=== PATIENT | male | born 1995 | race Caucasian/White ===

== ENCOUNTER → 2019-08-25 08:10 | Outpatient (CLI) | payer SELFPAY ==
--- NOTE | 2019-08-25 08:15 | RAD_ITS ---
Procedure: Dedicated, fluoroscopically guided esophagram. INDICATIONS: Tightness in stomach and throat, nausea, mucous, reflux. TECHNIQUE: The patient easily and readily swallowed effervescent crystals, a barium pill and various density barium contrast. Multiple digital spot images were obtained during the course of the real-time exam. FINDINGS: Esophageal motility appears normal. There is no esophageal stricture, web or diverticulum. There is no intrinsic or extrinsic esophageal mass or mass effect. There is no hiatal hernia. No free reflux was observed during the course of the real-time exam. The barium pill passes easily without obstruction or delay. The esophageal mucosal pattern appears unremarkable. Dedicated, cine evaluation of the pharynx demonstrates symmetric flow of the contrast bolus. No intrinsic or extrinsic mass or mass effect. Unremarkable appearing mucosal pattern. RAD/Esophagus Only IMPRESSION: Unremarkable exam. Electronically Signed: Jeffery Sexton MD at 9:15 EST , Service support ,
== END ==
LOC: RAD 08:13
PROVIDERS: Family Provider Nurse Practitioner Family; PCP Nurse Practitioner Family; Referring Provider Otolaryngology Otolaryngology/Facial Plastic Surgery; Visit Provider Otolaryngology Otolaryngology/Facial Plastic Surgery
DX: K21.9 Gastro-esophageal reflux disease without esophagitis (principal)
CPT/HCPCS: 74220

== ENCOUNTER 2019-09-08 20:07 | Emergency (ER) | payer SELFPAY ==
[2019-09-08 20:09] VITALS: BP 153/98; PULSE 101; RESP 17; TEMP 36.2; O2SAT 97; BMI 29.9
[2019-09-08 22:07] VITALS: RESP 16
--- NOTE | 2019-09-08 22:16 | CT_ITS ---
STUDY: CT BRAIN WITHOUT CONTRAST REASON FOR EXAM: Male, 24 years old. LIGHTHEADED, DIZZINESS X 1 WEEK, [place] WITH NAUSEA RADIATION DOSAGE (If Supplied By Facility): CTDIvol = ( 44.99 ) mGy, DLP = ( 812.98 ) mGycm TECHNIQUE: Transaxial CT imaging of the brain was performed without administration of intravenous contrast material. Individualized dose optimization techniques were used for this CT. COMPARISON: No relevant priors. FINDINGS: Normal soft tissue structures. Normal calvarium. Normal size ventricles and extra-axial spaces for the patient''s age. Normal white matter tracts of the cerebral hemispheres. Normal basal ganglia and thalami. Normal brainstem. Normal cerebellum. There is no intracranial hemorrhage. There are no findings of an acute ischemic infarction. Normal visualized paranasal sinuses. CT/Brain/Head without Contrast IMPRESSION: Normal unenhanced CT scan of the brain. Electronically Signed: Kolton Leroy MD at 23:28 EST , Service support ,
--- NOTE | 2019-09-08 22:26 | ED.DCSUM_ITS ---
History of Present Illness Chief Complaint: Dizziness Informant: Patient Onset: Days Context: Gradual Onset Timing: Continuous Current Severity: Moderate Maximum Severity: Moderate Narrative: The patient presents to the emergency department with headache. He states for the past week, he has had a mild posterior headache. He states is worse when he moves his head. He is also been nauseated and describes lightheadedness. He does not think he has had fever. He has had mild sore throat and ear pain. He denies cough. He denies any vomiting. He is otherwise been in his normal state of health. He denies any history of migraines. He denies any weakness, numbness, or tingling. Prior similar symptoms: No Recent Illness/Hospitalization: No Past Medical History - Allergies and Home Meds Allergies/Adverse Reactions: Allergies No Known Allergies Allergy (Verified 09/08/19 20:07) Primary Care Physician: Kalli Ahn NP-C [Primary Care Provider] - Prior records reviewed: Yes Past Medical History: None Surgical History: no surgical history Smoking Status: Current every day smoker Review of Systems General: Denies: Chills, Fever, Sweats Eyes: Denies: Visual changes - bilaterally, Diplopia ENT: Denies: Rhinorrhea, Sore throat Cardiovascular: Denies: Chest pain, Palpitations Respiratory: Denies: Dyspnea, Cough, Dyspnea on exertion Gastrointestinal: Reports: Nausea. Denies: Abdominal pain, Vomiting, Diarrhea, Melena, Hematochezia Genitourinary: Denies: Dysuria, Hematuria, Frequency Musculoskeletal: Denies: Back pain, Extremity Pain Skin: Denies: Rash, Wounds Neurological: Reports: Headache. Denies: Weakness, Numbness Physical Exam Vital Signs/Narrative: Vital Signs Temp Pulse Resp BP Pulse Ox 09/08/19 22:07 16 09/08/19 20:09 97.2 F L 101 H 17 153/98 H 97 Inital Vital Signs reviewed: Yes General: Well nourished, Well developed, No Acute Distress Head: Normocephalic, Atraumatic Eyes: Perrl, EOMI ENT: Moist mucous membranes, No rhinorrhea Neck: Supple, Nontender Cardiovascular: Regular rate, Regular rhythm, No murmurs Respiratory: No distress, CTA bilaterally, Chest nontender Abdomen: Soft, Nontender, Nondistended, Normal bowel sounds Back: Nontender, Normal Inspection Extremities: Nontender, No edema Skin: Normal color, No rash Neurological: Alert, Oriented x3, Cranial nerves II-XII grossly intact, Normal Strength, Normal Sensation Psychological: Normal affect, Normal Mood Diagnostic/Tx/Re-eval Clinical Impression(s) from Imaging Studies Brain CT 09/08/19 22:16 IMPRESSION: Normal unenhanced CT scan of the brain. Electronically Signed: Kolton Leroy MD at 23:28 EST , Service support , - Medical Decision Making The patient is a meningitic encephalopathic. His neck is supple. He has no lymphadenopathy. His symptoms do seem most consistent with a tension headache. He states he has been under a lot of stress at work. However, given the fact he is not had headache like this I did obtain a noncontrast head CT. This was unremarkable. With fluids, Toradol, and Benadryl, the patient was feeling improved. He continues to have a normal neurologic exam. At this point, I do feel that he safe for outpatient follow-up. He will be given anti- inflammatories and antispasmodics as needed. He will be discharged home. Impression 1. Tension headache ED Disposition - Plan for ED Patient: Instructions: HEADACHE, Tension Prescriptions: cycloBENZAPRine HCl [Flexeril] 10 mg PO TID PRN #20 tab PRN Reason: Muscle Spasm Prescription Printed Naproxen [Naprosyn] 500 mg PO BID PRN #20 tab Prescription Printed Referrals: Kalli Ahn NP-C [Primary Care Provider] -
[2019-09-08] MEDS: 0.9% Normal Saline 1,000 ML 999 ML IV (22:54)
[2019-09-08] MEDS: Ketorolac 30 MG/ML Syringe IV (22:54)
[2019-09-08] MEDS: DiphenhydrAMINE 50 MG/ML Syringe 25 MG IV (22:56)
== END 2019-09-08 23:53 | disposition home or self-care (01) ==
PROVIDERS: Emergency Provider Emergency Medicine; Family Provider Nurse Practitioner Family; PCP Nurse Practitioner Family
DX: G44.209 Tension-type headache, unspecified, not intractable (principal); F17.200 Nicotine dependence, unspecified, uncomplicated
CPT/HCPCS: 70450; 96361; 96374; 96375; 99283; J7030

== ENCOUNTER 2019-09-14 20:13 | Emergency (ER) | payer SELFPAY ==
[2019-09-14 20:14] VITALS: BP 162/96; PULSE 99; RESP 18; TEMP 37; O2SAT 99; BMI 27.1
--- NOTE | 2019-09-14 20:43 | RAD_ITS ---
STUDY: X-RAY CHEST REASON FOR EXAM: Male, 24 years old. C/O ABD PAIN AND NAUSEA. TECHNIQUE: Single frontal view of the chest. COMPARISON: None. FINDINGS: Cardiac silhouette unremarkable. Pulmonary vascularity unremarkable. Aorta unremarkable. No focal airspace opacities. No pleural effusions. Upper abdomen unremarkable. Osseous structures intact. No pneumothorax. RAD/Chest 1 View (Portable) IMPRESSION: No acute cardiopulmonary findings Electronically Signed: Darian Tello, at 22:54 EST Tel , Service support ,
--- NOTE | 2019-09-14 20:43 | EKG12_ITS ---
Test Reason : DYSRHYTHMIA Blood Pressure : / mmHG Vent. Rate : 081 BPM Atrial Rate : 081 BPM P-R Int : 126 ms QRS Dur : 100 ms QT Int : 378 ms P-R-T Axes : 055 067 045 degrees QTc Int : 439 ms Normal sinus rhythm with sinus arrhythmia Normal ECG Confirmed by LULI KEARNS, TEAGAN ([id number]), order editor RY MARSH ([id number]) on 09/16/2019 11:28:56 AM Referred By: ARMANDO Confirmed By:TEAGAN ROCKWELL MD
--- NOTE | 2019-09-14 20:51 | ED.RN ---
NO OLD EKG
[2019-09-14] MEDS: 0.9% Normal Saline 1,000 ML 1000 ML IV (20:53)
[2019-09-14] MEDS: Ondansetron 4 MG/2 ML Vial IV (20:54)
[2019-09-14] MEDS: Mag Hydrox/Al Hydrox/Simeth 30 ML UDC PO (20:54)
[2019-09-14 21:08] LABS: Absolute Lymphocyte Count 1.88 X10^3/uL (0.83-4.51); Absolute Neutrophil Count 4.5 X10^3/uL (2.0-7.7); Basophil# 0.02 X10^3/uL; Basophil% 0.3 % (0-1); Eosinophil# 0.12 X10^3/uL; Eosinophils% 1.7 % (0-5); Hematocrit 46.8 % (40-54); Hemoglobin 15.8 g/dL (13.0-16.5); Lymphocyte # 1.88 X10^3/ul (4.0); Lymphocyte % 26.4 % (19-41); Mean Corp Hgb Conc 33.8 g/dL (32-36); Mean Corpuscular Hgb 29.8 pg (27.0-32.0); Mean Corpuscular Volume 88.1 fL (80-94); Mean Platelet Vol. 9.8 fl (6.2-12.0); Monocyte# 0.59 X10^3/uL; Monocyte% 8.3 % (0-10); NRBC Flagged by Analyzer 0 % (0-5); Platelet Count 221 K/mm3 (150-450); RBC Distribution Width CV 12.8 % (11.6-14.6); RBC Distribution Width SD 41.2 fl (35.1-43.9); Red Blood Count 5.31 M/mm3 (4.6-6.2); White Blood Count 7.1 K/mm3 (4.4-11.0)
[2019-09-14 21:19] LABS: ALB/GLOB Ratio 1.3 RATIO (0.9-2.4); AST(SGOT) 23 U/L (15-37); Alanine Aminotransfer ALT/SGPT 63 U/L (16-61); Albumin, Serum 4.3 g/dL (3.2-5.0); Alkaline Phosphatase 91 U/L (45-117); Anion Gap 5 (5-15); BUN 10 mg/dL (7-18); BUN/Creat Ratio 10.3 RATIO (10-20); Calcium,Total 9.3 mg/dL (8.5-10.1); Chloride 106 mmol/L (98-107); Creatinine, Serum 0.97 mg/dL (0.70-1.30); EST Glomerular Filtration Rate 100 mL/min (>60); Est Glom Filt Rate - Afr Amer 121 mL/min (>60); Estimated Creatinine Clearance 128.89 ml/min; Globulin 3.3 g/dL (2.2-4.2); Glucose 111 mg/dL (74-106); Lipase 91 U/L (73-393); Potassium 3.7 mmol/L (3.5-5.1); Protein, Total 7.6 g/dL (6.4-8.2); Sodium Level 140 mmol/L (136-145)
[2019-09-14 21:36] LABS: Bacteria 0 SEEN /hpf (None Seen); Mucous, Urine 0 SEEN /hpf (<or=2+); Red Blood Cells-Urine 0 SEEN /hpf (0-5); Squamous Epithelial Cells - UA 0 SEEN /hpf (0-5)
[2019-09-14 21:44] LABS: Color, Urine Yellow (Yellow); Glucose, Dipstick Normal (Normal); Ketone-Dipstick Negative (Negative); Leukocyte Esterase-Dipstick 25 /ul (Negative); Nitrite-Dipstick Negative (Negative); Occult Blood-Urine Negative /ul (Negative); Protein-Dipstick Negative (Negative); Urine Bilirubin Dipstick Negative (Negative); Urine Clarity Clear (Clear); Urine Urobilinogen Normal (Normal)
[2019-09-14 21:52] LABS: White Blood Cells 0-5 SEEN /hpf (0-5)
--- NOTE | 2019-09-14 21:57 | ED.DCSUM_ITS ---
- ER Visit Summary Date of Service: 09/14/19 Chief Complaint: Abdominal pain History of Present Illness: The patient is a [address] Ahn. He reports that he has epigastric abdominal pain that began 3 days ago. He states it radiates up into his neck. Is a continuous pain that he describes as burning that waxes and wanes. Is 9 out of 10 at worst and 7-10 currently. Nothing makes this better or worse. He is taking antacids without relief. He is on been on Prilosec for approximately a month. He reports has been nauseated. No vomiting. No diarrhea. Last bowel was today. No amount of medication. He reports he had frequent urination. He denies any dysuria. No penile discharge or testicular pain. Physical Examination: Vitals: Stable. Afebrile. General: Well-nourished and well-developed. Head: Normocephalic atraumatic. Neck: Supple, no lymphadenopathy. No JVD. Nontender. Cardiovascular: Regular rate and rhythm. No murmurs. Respiratory: No respiratory distress. Clear to auscultation bilaterally. Abdominal: Soft, mild epigastric and left upper quadrant tenderness to palpation, nondistended, normal bowel sounds. No guarding, rebound, or peritoneal signs. Back: Nontender. Extremities: Nontender, no edema. Skin: Normal color, no rash. Neurologic: Alert and oriented ?3. Cranial nerves II through XII are intact. Normal strength and sensation. Psych: Normal affect. Test Results: EKG is sinus at [address] changes. Chest x-ray shows no acute disease. CBC is normal. Chem-7 shows a glucose of 111. LFTs show an ALT of 63. Lipase is normal. Urinalysis is negative. Emergency Department Course and Treatment: Patient was treated with Zofran and GI cocktail. He is resting comfortably. Treatment Plan: Patient will have Zantac added to his omeprazole. Instructed to follow-up with his primary care physician in 1 to 2 days if not improving. He was also instructed to follow-up with Dr. Abraham in 3 to 5 days if he is not improving. He is never had endoscopy. Disposition: To home in improved and stable condition. Impression: 1. Abdominal pain, uncertain cause. This note was generated with [facility] software. It may contain incorrect words, spelling, and punctuation that were not noted in review of the chart prior to signing ED Disposition - Plan for ED Patient: Disposition: Home or Assisted Living Instructions: ABDOMINAL PAIN, Unkown Cause, (Male) Prescriptions: Ranitidine [Zantac] 300 mg PO DAILY #30 tab Prescription Printed Referrals: Sergey Abraham MD [STAFF PHYSICIAN] - 3-5 Days if not improving Kalli Ahn NP-C [Primary Care Provider] - 1-2 Days if not improving
[2019-09-14 22:13] VITALS: BP 141/86; PULSE 80; RESP 15; O2SAT 95
[2019-09-14 22:35] VITALS: BP 147/93; PULSE 83; RESP 15; O2SAT 96
== END 2019-09-14 22:44 | disposition home or self-care (01) ==
LOC: ED 20:45
PROVIDERS: Emergency Provider Emergency Medicine; PCP Nurse Practitioner Family
DX: R10.9 Unspecified abdominal pain (principal); R11.0 Nausea; R06.00 Dyspnea, unspecified; R07.9 Chest pain, unspecified; R35.0 Frequency of micturition
CPT/HCPCS: 71045; 80053; 81001; 83690; 85025; 93005; 96361; 96374; 99284; J7030; A4216; J2405

== ENCOUNTER 2019-10-12 12:50 | Emergency (ER) | payer SELFPAY ==
[2019-10-12 12:51] VITALS: BP 161/94; PULSE 88; RESP 16; TEMP 36.9; O2SAT 98; BMI 27.1
[2019-10-12 13:04] VITALS: BP 146/100; PULSE 74; RESP 18; O2SAT 100
--- NOTE | 2019-10-12 13:09 | EKG12_ITS ---
Test Reason : SOB Blood Pressure : / mmHG Vent. Rate : 065 BPM Atrial Rate : 065 BPM P-R Int : 116 ms QRS Dur : 110 ms QT Int : 422 ms P-R-T Axes : 016 055 052 degrees QTc Int : 438 ms Normal sinus rhythm with sinus arrhythmia Normal ECG Confirmed by SAKSHI KEARNS, KRISTEL ([id number]), purchase request editor ABBIE CARRERA ([id number]) on 10/15/2019 8:57:53 AM Referred By: JOSE Confirmed By:KRISTEL CANTOR MD
--- NOTE | 2019-10-12 13:15 | RAD_ITS ---
STUDY: X-RAY CHEST REASON FOR EXAM: Male, 24 years old. Patient states for several days sob, upper abd, lower chest pain on the left side, now pain shooting into neck and jaw. TECHNIQUE: Frontal and lateral views of the chest. COMPARISON: 09/14/2019 FINDINGS: The lungs are clear and expanded. There is no demonstrated pleural abnormality. Normal size heart. Normal mediastinum and nikolay. Normal visualized pulmonary arteries. Normal visualized aortic arch and descending thoracic aorta. Normal visualized thoracic spine. Normal visualized ribs, clavicles, and shoulders. There is no demonstrated abnormality of the visualized soft tissue structures of the upper abdomen. RAD/Chest PA and Lateral IMPRESSION: Normal x-ray examination of the chest. Electronically Signed: Tj Valdez MD at 13:46 EST Tel , Service support ,
--- NOTE | 2019-10-12 13:20 | ED.DCSUM_ITS ---
- ER Visit Summary Date of Service: 10/12/19 Chief Complaint: Shortness of breath History of Present Illness: The patient is a 24 M with shortness of breath for the past 2 days. Today, he started to have some tightness in his chest, neck, and jaw. Nothing seemed to bring this on or make it worse. Nothing seems to make it better. He never had this before. He has a history of acid reflux and anxiety. No history of heart disease, blood clots, aortic disease. No trauma. No fevers, cough, or sputum. Physical Examination: Afebrile and vital signs unremarkable except for blood pressure of 161/94. Patient appears in no acute distress. HEENT exam unremarkable. Neck is nontender with good range of motion. Heart regular. Lungs are diminished in all valle. Abdomen is soft and nontender. Extremities nontender with no edema. Skin appears normal. Pulses strong and equal. Test Results: EKG and chest x-ray are pending. Emergency Department Course and Treatment: Patient presents with shortness of breath and chest tightness. He is a smoker, but otherwise has no past medical history. He is young and otherwise healthy. He is PERC negative and has no other risk factors for ACS or aortic disease. No trauma or infectious symptoms. Chest x-ray was normal. EKG was normal. No sign of ischemia or infarction pattern. Patient was treated with a DuoNeb for diminished lung sounds. He had very mild improvement. No wheezing. Repeat heart rate was 81 and repeat blood pressure was 146/100. I do not believe this is PE, ACS, aortic pathology. X-ray and EKG were reassuring. I suspect this might be related to anxiety. Patient has a history of this. He will take his Atarax as prescribed. Follow-up with his doctor as an outpatient. Return for any new or worsening issues. Treatment Plan: Above Disposition: Discharge Impression: Atypical chest pain This note was generated with [employer] dictation software. It may contain incorrect words, spelling, and punctuation that were not noted in review of the chart prior to signing ED Disposition - Plan for ED Patient: Referrals: Kalli Ahn NP-C [Primary Care Provider] -
[2019-10-12] MEDS: Ipratropium/Albuterol Sulfate 3 ML AMPUL.NEB INHALATION (13:44)
--- NOTE | 2019-10-12 14:00 | ED.DEP ---
ED Disposition - Plan for ED Patient: Instructions: CHEST PAIN, NonCardiac Referrals: Kalli Ahn NP-C [Primary Care Provider] -
[2019-10-12 14:09] VITALS: BP 133/78; PULSE 88; RESP 16; O2SAT 98
[2019-10-12 14:16] VITALS: PULSE 88; RESP 20
== END 2019-10-12 14:09 | disposition home or self-care (01) ==
LOC: ED 13:15
PROVIDERS: Emergency Provider Emergency Medicine; PCP Nurse Practitioner Family
DX: R07.89 Other chest pain (principal); F41.9 Anxiety disorder, unspecified; K21.9 Gastro-esophageal reflux disease without esophagitis; Z79.899 Other long term (current) drug therapy; F17.200 Nicotine dependence, unspecified, uncomplicated
CPT/HCPCS: 71046; 93005; 94640; 99283

== ENCOUNTER 2019-10-27 20:09 | Emergency (ER) | payer SELFPAY ==
[2019-10-27 20:09] VITALS: BP 146/75; PULSE 87; RESP 16; TEMP 36.6; O2SAT 97; BMI 27.1
--- NOTE | 2019-10-27 21:14 | ED.VIS.GEN ---
History of Present Illness Chief Complaint: Other, Pain/Inj Informant: Patient Onset: Days Context: Gradual Onset Timing: Continuous Current Severity: Moderate Maximum Severity: Moderate Narrative: The patient presents to the emergency department with bilateral ear pain and jaw pain. Patient was in his normal state of health. He states he recently finished amoxicillin for strep throat. He states over the past 2 days, he had pain that started in his right ear and is moved to both ears. He states that he is also had pain in his jaw. He denies any fevers. He denies any neck pain. He states it is worse when he eats. He denies any dental pain or trouble swallowing. Prior similar symptoms: No Recent Illness/Hospitalization: No Past Medical History - Allergies and Home Meds Allergies/Adverse Reactions: Allergies No Known Allergies Allergy (Verified 10/27/19 20:11) Primary Care Physician: Kalli Ahn NP-C [Primary Care Provider] - Prior records reviewed: Yes Past Medical History: None Surgical History: no surgical history Smoking Status: Current every day smoker Review of Systems General: Denies: Chills, Fever, Sweats Eyes: Denies: Visual changes - bilaterally, Diplopia ENT: Reports: Bilateral ear pain. Denies: Rhinorrhea, Sore throat Cardiovascular: Denies: Chest pain, Palpitations Respiratory: Denies: Dyspnea, Cough, Dyspnea on exertion Gastrointestinal: Denies: Abdominal pain, Nausea, Vomiting, Diarrhea, Melena, Hematochezia Genitourinary: Denies: Dysuria, Hematuria, Frequency Musculoskeletal: Denies: Back pain, Extremity Pain Skin: Denies: Rash, Wounds Neurological: Denies: Headache, Weakness, Numbness Physical Exam Vital Signs/Narrative: Vital Signs Temp Pulse Resp BP Pulse Ox 10/27/19 20:09 98 F 87 16 146/75 H 97 Inital Vital Signs reviewed: Yes General: Well nourished, Well developed, No Acute Distress Head: Normocephalic, Atraumatic Eyes: Perrl, EOMI ENT: Moist mucous membranes, No rhinorrhea, - - Left TM is mildly bulging but there is no erythema. Right TM is erythematous with bulging and distortion. There is no mastoid tenderness. Neck: Supple, Nontender, No lymphadenopathy Cardiovascular: Regular rate, Regular rhythm, No murmurs Respiratory: No distress, CTA bilaterally, Chest nontender Abdomen: Soft, Nontender, Nondistended, Normal bowel sounds Back: Nontender, Normal Inspection Extremities: Nontender, No edema Skin: Normal color, No rash Neurological: Alert, Oriented x3, Cranial nerves II-XII grossly intact, Normal Strength, Normal Sensation Psychological: Normal affect, Normal Mood Diagnostic/Tx/Re-eval The patient presents with bilateral ear pain and jaw pain. His neck is supple. There is no meningismus. He does have evidence of right otitis. He was recently on amoxicillin for strep throat. He has no trismus or stridor. I am going to start the patient on Omnicef. I will also add an antispasmodic to help with his jaw pain. He is comfortable with this plan of care will be discharged home. Impression 1. Acute right otitis media ED Disposition - Plan for ED Patient: Instructions: OTITIS MEDIA, Abx Tx (Adult) Prescriptions: cycloBENZAPRine HCl [Flexeril] 10 mg PO TID PRN #20 tab PRN Reason: Muscle Spasm Prescription Printed Cefdinir [Omnicef [equiv]] 300 mg PO Q12H #14 cap Prescription Printed Referrals: Kalli Ahn NP-C [Primary Care Provider] -
[2019-10-27] MEDS: Cefdinir 300 MG Capsule PO (21:38)
[2019-10-27] MEDS: cycloBENZAPRine HCl 10 MG Tablet PO (21:38)
[2019-10-27 21:44] VITALS: RESP 18
== END 2019-10-27 21:44 | disposition home or self-care (01) ==
PROVIDERS: Emergency Provider Emergency Medicine; PCP Nurse Practitioner Family
DX: H66.91 Otitis media, unspecified, right ear (principal); F17.200 Nicotine dependence, unspecified, uncomplicated
CPT/HCPCS: 99283; J7030

== ENCOUNTER 2019-12-05 14:29 | Emergency (ER) | payer SELFPAY ==
[2019-12-05 14:30] VITALS: BP 163/125; PULSE 79; RESP 16; TEMP 36.2; O2SAT 99; BMI 27.8
--- NOTE | 2019-12-05 14:58 | EKG12_ITS ---
Test Reason : CHEST PAIN Blood Pressure : / mmHG Vent. Rate : 070 BPM Atrial Rate : 070 BPM P-R Int : 134 ms QRS Dur : 108 ms QT Int : 400 ms P-R-T Axes : 051 061 034 degrees QTc Int : 432 ms Sinus rhythm with marked sinus arrhythmia Otherwise normal ECG Confirmed by LULI KEARNS, TEAGAN ([id number]), associate editor NEVAEH JERRY ([id number]) on 12/08/2019 8:36:25 AM Referred By: BRIANNA Confirmed By:TEAGAN ROCKWELL MD
--- NOTE | 2019-12-05 14:59 | ED.VIS.URI ---
History of Present Illness Chief Complaint: Shortness of Breath Informant: Patient Onset: Weeks - 1 Context: Gradual Onset Timing: Continuous Quality: feels tight, difficult to take a full/deep breath Location: diffuse chest Current Severity: Moderate Maximum Severity: Moderate Worsened by: - - nothing Relieved by: - - nothing Associated Symptoms: Nasal Congestion - w/ mild rhinorrhea, Shortness of Breath, Chest Pain - tightness, Nonproductive cough. Negative for: Headache, Nausea, Vomiting, Diarrhea, Hemoptysis Narrative: Patient has had a cough, chest tightness, shortness of breath without true dyspnea, see above, for the past week. He has a history of anxiety and felt this way before with his anxiety, but states this is been fairly continuous for the past week without any panic attacks, so he thinks that is not the cause of this. He denies having any fevers, states he has been checking his temperature. No leg swelling. No history of DVT or PE, and no family history of venous thrombolic embolism. No recent hospitalizations, surgeries, long travel, and has not traveled out of the area. [facility] No history of asthma. - Past Medical History (1) Anxiety Status: Chronic Past Medical History - Allergies and Home Meds Allergies/Adverse Reactions: Allergies No Known Allergies Allergy (Verified 12/05/19 14:31) Primary Care Physician: Kalli Ahn NP-C [Primary Care Provider] - Surgical History: no surgical history Smoking Status: Current every day smoker Drugs: None Review of Systems General: Denies: Chills, Fever, Sweats Eyes: Denies: Visual changes - bilaterally, Diplopia ENT: Reports: Rhinorrhea. Denies: Bilateral ear pain, Sore throat Cardiovascular: Reports: Chest pain. Denies: Palpitations, Heart racing Respiratory: Reports: Dyspnea - See HPI., Cough. Denies: Sputum, Dyspnea on exertion, Orthopnea Gastrointestinal: Denies: Abdominal pain, Nausea, Vomiting, Diarrhea, Melena, Hematochezia Genitourinary: Denies: Dysuria, Hematuria, Frequency Musculoskeletal: Denies: Back pain, Swelling, Extremity Pain Skin: Denies: Rash, Wounds Neurological: Denies: Headache, Weakness, Numbness Physical Exam Vital Signs/Narrative: Vital Signs Temp Pulse Resp BP Pulse Ox 12/05/19 14:30 97.1 F L 79 16 163/125 H 99 Inital Vital Signs reviewed: Yes General: Well nourished, Well developed Head: Normocephalic, Atraumatic Eyes: Perrl, EOMI Nose: Normal Inspection. Negative for: Purulent Drainage Mouth/Throat: Normal Inspection, No Posterior Erythema Neck: Supple, Nontender Cardiovascular: Regular rate, Regular rhythm, No murmurs. Negative for: Tachycardia Respiratory: No distress, CTA bilaterally, Chest nontender Abdomen: Soft, Nontender, Nondistended, Normal bowel sounds Back: Nontender, Normal Inspection Extremities: Nontender, No edema. Negative for: Calf Tenderness Skin: Normal color, No rash, No Trauma Neurological: Alert, Oriented x3, Cranial nerves II-XII grossly intact, Normal Strength, Normal Sensation, Normal Gait Psychological: Normal affect, Normal Mood Diagnostic/Tx/Re-eval Clinical Impression(s) from Imaging Studies Chest X-Ray 12/05/19 15:07 IMPRESSION: Normal x-ray examination of the chest. Electronically Signed: Richard Delacruz, at 15:30 EDT , Service support , - Rhythm Strip Rhythm Strip: Sinus Rhythm Rate: 70 Ectopy: None - EKG Initial EKG Interpretation: Sinus Rhythm, No Acute Injury Pattern - Normal EKG - Medical Decision Making Patient feels better after a duo nebulizer aerosol. He is able to take a deep breath much easier. Reassured that his x-ray is negative, he does not have fevers and is less likely to have coronavirus, more likely to have a viral bronchitis that could be causing some mild reactive airway. No antibiotics indicated for this, prescribed an albuterol inhaler, and discharged home with appropriate discharge instructions and reasons to return. He is comfortable with that plan. ED Disposition - Plan for ED Patient: Disposition: Home or Assisted Living Diagnosis: Acute viral bronchitis Instructions: ED Upper Resp Infec No Abx Tx Prescriptions: Albuterol Inhaler [Ventolin Hfa] 1 - 2 puff INHALATION Q4H PRN PRN #1 inhaler PRN Reason: Wheezing Prescription Printed Referrals: Kalli Ahn, ALYSA-C [Primary Care Provider] - As Needed
[2019-12-05 15:06] VITALS: BP 146/98; PULSE 59; RESP 18; O2SAT 98
[2019-12-05] MEDS: Ipratropium/Albuterol Sulfate 3 ML AMPUL.NEB INHALATION (15:06)
[2019-12-05 15:07] VITALS: PULSE 62; RESP 14
--- NOTE | 2019-12-05 15:07 | RAD_ITS ---
STUDY: X-RAY CHEST REASON FOR EXAM: Male, 24 years old. SOB; CHEST TIGHTNESS, DRY COUGH X 1 WEEK TECHNIQUE: Single AP portable view of the chest. COMPARISON: Comparison is made with prior examination dated October 12, 2019. FINDINGS: EKG electrodes are seen. The lungs are clear and expanded. There is no demonstrated pleural abnormality. Normal size heart. Normal mediastinum and nikolay. Normal visualized pulmonary arteries. Normal visualized aortic arch and descending thoracic aorta. Normal visualized thoracic spine. Normal visualized ribs, clavicles, and shoulders. There is no demonstrated abnormality of the visualized soft tissue structures of the upper abdomen. RAD/Chest 1 View (Portable) IMPRESSION: Normal x-ray examination of the chest. Electronically Signed: Richard Delacruz, at 15:30 EDT , Service support ,
[2019-12-05 15:18] VITALS: O2SAT 98
[2019-12-05 16:16] VITALS: BP 134/79; PULSE 84; RESP 16; O2SAT 99
== END 2019-12-05 16:17 | disposition home or self-care (01) ==
PROVIDERS: Emergency Provider Emergency Medicine; PCP Nurse Practitioner Family
DX: J20.8 Acute bronchitis due to other specified organisms (principal); F41.9 Anxiety disorder, unspecified; F17.200 Nicotine dependence, unspecified, uncomplicated
CPT/HCPCS: 71045; 93005; 94640; 99282

== ENCOUNTER 2020-02-21 13:01 | Emergency (ER) | payer SELFPAY ==
[2020-02-21 13:02] VITALS: BP 149/106; PULSE 111; RESP 17; TEMP 37.1; O2SAT 97; BMI 31.4
[2020-02-21 13:04] VITALS: BP 149/106; PULSE 111; RESP 17; TEMP 37.1; O2SAT 97
--- NOTE | 2020-02-21 13:20 | RAD_ITS ---
STUDY: X-RAY CHEST REASON FOR EXAM: Male, 25 years old. FEVER, ACHES, COUGH TECHNIQUE: Frontal view of the chest COMPARISON: December 05, 2019 FINDINGS: There is ill-defined right lower lobe and perihilar opacity. There is no pneumothorax, pulmonary edema, pleural effusions or cardiomegaly. Osseous structures are intact. RAD/Chest 1 View (Portable) IMPRESSION: Questionable right lower lung opacity, early pneumonia versus artifact. Recommend short-term confirmatory imaging. Electronically Signed: Michel Marsh, at 14:39 EDT Tel , Service support ,
--- NOTE | 2020-02-21 13:21 | ED.VIS.GEN ---
History of Present Illness Chief Complaint: Cough Detail of Chief Complaint: weak all over Informant: Patient Onset: Days - 3- Context: Gradual Onset Timing: Continuous Quality: malaised/weak Location: all over Current Severity: Severe Maximum Severity: Severe Worsened by: nothing Relieved by: nothing Associated Symptoms: clearing throat a lot/feels congested. not coughing or sob. LUQ pain.chills Narrative: Patient states for the last 3 or 4 weeks he has had diarrhea that initially started watery now just loose, maybe 3 or 4 bouts per day, only 1 so far today and he presents around midday. He had a COVID test that was negative couple weeks ago for that, as well as a stool bacterial test that was negative. Etiology of this is unknown. Last 3 days he is really felt poorly. Weak all over, malaise, chills, sweats although when he takes his temperature during that it is afebrile, feels like he just needs to stay in bed. Not really coughing, but feels like he is having some lower throat congestion that is making him clear his throat a lot. He states he did have a sore throat but that is gone and better. No earache. He had tympanostomy tubes placed for what sounds like recurrent effusions. He has had no ear drainage recently. Denies headache or neck stiffness. He does have myalgias but not arthralgias. No rashes. No chest pain but he is having some left upper quadrant abdominal discomfort. No nausea or vomiting. Mild discomfort in his low back nonlateralizing. No urinary symptoms. Is drinking fluids. - Past Medical History (1) Anxiety Status: Chronic Past Medical History - Allergies and Home Meds Allergies/Adverse Reactions: Allergies No Known Allergies Allergy (Verified 02/21/20 13:02) Primary Care Physician: Kalli Ahn NP-C [Primary Care Provider] - Surgical History: no surgical history Smoking Status: Current some day smoker Drugs: None Review of Systems General: Reports: Chills, Malaise, Sweats. Denies: Fever Eyes: Denies: Visual changes - bilaterally, Diplopia ENT: Reports: Sore throat - resolved now. Denies: Bilateral ear pain, Rhinorrhea Cardiovascular: Denies: Chest pain, Palpitations Respiratory: Denies: Dyspnea, Cough, Dyspnea on exertion Gastrointestinal: Reports: Abdominal pain, Diarrhea. Denies: Nausea, Vomiting, Melena, Hematochezia Genitourinary: Denies: Dysuria, Hematuria, Frequency Musculoskeletal: Reports: Myalgias, Back pain, Extremity Pain - myalgias only. Denies: Arthralgias, Neck pain, Swelling Skin: Denies: Rash, Abscess, Wounds Neurological: Denies: Headache, Weakness, Numbness Physical Exam Vital Signs/Narrative: Vital Signs Temp Pulse Resp BP Pulse Ox 02/21/20 13:02 98.7 F 111 H 17 149/106 H 97 Inital Vital Signs reviewed: Yes General: Well nourished, Well developed, No Acute Distress Head: Normocephalic, Atraumatic Eyes: Perrl, EOMI, - - nml conjunctivae ENT: Moist mucous membranes, No rhinorrhea, TM's clear - intact tympanostomy tubes bilat Neck: Supple, Nontender, No lymphadenopathy Cardiovascular: Regular rate, Regular rhythm, No murmurs, Normal S1, Normal S2, Tachycardia - mild Respiratory: No distress, CTA bilaterally, Chest nontender, - - no splinting on deep inspiration Abdomen: Soft, Nondistended, Normal bowel sounds, No masses, Tender - mild LUQ only, which reproduces his pain. Negative for: Guarding, Rebound tenderness, Hepatomegaly, Splenomegaly Back: Nontender, Normal Inspection Extremities: Nontender, No edema. Negative for: Calf Tenderness Skin: Normal color, No rash, No Trauma Neurological: Alert, Oriented x3, Cranial nerves II-XII grossly intact, Normal Strength, Normal Sensation, Normal Gait Psychological: Normal affect, Normal Mood Diagnostic/Tx/Re-eval Impressions Chest X-Ray 02/21/20 13:20 IMPRESSION: Questionable right lower lung opacity, early pneumonia versus artifact. Recommend short-term confirmatory imaging. Electronically Signed: Michel Marsh, at 14:39 EDT Tel , Service support , 02/21/20 13:20 Chest 1 View (Portable) [RAD] Stat Laboratory Results 02/21/20 02/21/20 02/21/20 13:40 13:40 13:40 WBC 8.8 RBC 5.50 Hgb 17.5 H Hct 50.0 MCV 90.9 MCH 31.8 MCHC 35.0 RDW Std Deviation 44.4 H RDW Coeff of Iraida 13.6 Plt Count 207 MPV 9.8 Immature Gran % (Auto) 0.800 Neut % (Auto) 72.4 H Lymph % (Auto) 20.1 [place] % (Auto) 5.4 Eos % (Auto) 1.1 Baso % (Auto) 0.2 Absolute Neuts (auto) 6.4 Absolute Lymphs (auto) 1.77 Nucleated RBC % 0 Sodium 139 Potassium 3.6 Chloride 104 Carbon Dioxide 28.0 Anion Gap 7 BUN 12 Creatinine 0.96 Estim Creat Clear Calc 129.11 Est GFR (MDRD) Af Amer 122 Est GFR (MDRD) Non-Af 101 BUN/Creatinine Ratio 12.4 Glucose 121 H Calcium 9.2 Total Bilirubin 1.20 H AST 28 ALT 89 H Alkaline Phosphatase 94 Total Protein 7.7 Albumin 4.1 Globulin 3.6 Albumin/Globulin Ratio 1.1 Monoscreen Negative - Medical Decision Making Labs are unremarkable, chest x-ray as above shows the possibility of an early infiltrate, the imaging is not impressively different than his old x-ray, but I can see where the radiologist would say this. His mono screen is negative. I sent another COVID test that is pending and will not be run in-house so it will take several days to come back. Discussed that with the patient. He is feeling better after a liter of fluid and dose of Toradol. I will prescribe him a Z-Kyle to cover the possibility of an early pneumonia, and he is advised to follow-up with his doctor. He is comfortable with that plan. Viral etiologies are in the differential as his COVID-19. ED Disposition - Plan for ED Patient: Disposition: Home or Assisted Living Diagnosis: Lower respiratory tract infection Instructions: ED PNEUMONITIS Adult Prescriptions: Azithromycin [Zithromax Z-Kyle] 250 mg PO UD #1 box Transmission Status: Pending to [id number] Referrals: Kalli Ahn NP-C [Primary Care Provider] - 1 Week if not improving
[2020-02-21] MEDS: 0.9% Normal Saline 1,000 ML 999 ML IV (13:44)
[2020-02-21] MEDS: Ketorolac 30 MG/ML Syringe IV (13:45)
[2020-02-21 13:55] LABS: Absolute Lymphocyte Count 1.77 X10^3/uL (0.83-4.51); Absolute Neutrophil Count 6.4 X10^3/uL (2.0-7.7); Basophil# 0.02 X10^3/uL; Basophil% 0.2 % (0-1); Eosinophils% 1.1 % (0-5); Hemoglobin 17.5 g/dL (13.0-16.5); Lymphocyte # 1.77 X10^3/ul (4.0); Lymphocyte % 20.1 % (19-41); Mean Corpuscular Hgb 31.8 pg (27.0-32.0); Mean Corpuscular Volume 90.9 fL (80-94); Mean Platelet Vol. 9.8 fl (6.2-12.0); Monocyte# 0.48 X10^3/uL; Monocyte% 5.4 % (0-10); NRBC Flagged by Analyzer 0 % (0-5); Neutrophil # 6.38 X10^3/uL (2.7-7.7); Neutrophil % 72.4 % (47-70); Platelet Count 207 K/mm3 (150-450); RBC Distribution Width CV 13.6 % (11.6-14.6); RBC Distribution Width SD 44.4 fl (35.1-43.9); White Blood Count 8.8 K/mm3 (4.4-11.0)
[2020-02-21 14:10] LABS: Internal QC Validated? YES +Cl - CLEAR BKGD; Monotest Negative (Negative)
[2020-02-21 14:15] LABS: ALB/GLOB Ratio 1.1 RATIO (0.9-2.4); AST(SGOT) 28 U/L (15-37); Alanine Aminotransfer ALT/SGPT 89 U/L (16-61); Albumin, Serum 4.1 g/dL (3.2-5.0); Alkaline Phosphatase 94 U/L (45-117); Anion Gap 7 (5-15); BUN 12 mg/dL (7-18); BUN/Creat Ratio 12.4 RATIO (10-20); Calcium,Total 9.2 mg/dL (8.5-10.1); Chloride 104 mmol/L (98-107); Creatinine, Serum 0.96 mg/dL (0.70-1.30); EST Glomerular Filtration Rate 101 mL/min (>60); Est Glom Filt Rate - Afr Amer 122 mL/min (>60); Estimated Creatinine Clearance 129.11 ml/min; Globulin 3.6 g/dL (2.2-4.2); Glucose 121 mg/dL (74-106); Potassium 3.6 mmol/L (3.5-5.1); Protein, Total 7.7 g/dL (6.4-8.2); Sodium Level 139 mmol/L (136-145)
[2020-02-21 16:50] VITALS: BP 159/91; PULSE 81; RESP 16; O2SAT 97
== END 2020-02-21 16:51 | disposition home or self-care (01) ==
PROVIDERS: Emergency Provider Emergency Medicine; PCP Nurse Practitioner Family
DX: J22 Unspecified acute lower respiratory infection (principal); R19.7 Diarrhea, unspecified; F41.9 Anxiety disorder, unspecified; Z79.899 Other long term (current) drug therapy; F17.200 Nicotine dependence, unspecified, uncomplicated
CPT/HCPCS: 71045; 80053; 85025; 86308; 87635; 96361; 96374; 99283; G2023; J7040; A4216; U0003

== ENCOUNTER 2020-03-02 00:19 | Emergency (ER) | payer SELFPAY ==
[2020-03-02 00:20] VITALS: BP 155/92; PULSE 100; RESP 16; TEMP 36.9; O2SAT 100; BMI 31.4
--- NOTE | 2020-03-02 00:38 | RAD_ITS ---
STUDY: X-RAY CHEST REASON FOR EXAM: Male, 25 years old. Cough x 2 weeks TECHNIQUE: PA and lateral views of the chest. COMPARISON: February 21, 2020 chest x-ray, September 14, 2019 chest x-ray FINDINGS: The lungs are clear and expanded. There is no demonstrated pleural abnormality. Normal size heart. Normal mediastinum and nikolay. Normal visualized pulmonary arteries. Normal visualized aortic arch and descending thoracic aorta. Normal visualized thoracic spine. Normal visualized ribs, clavicles, and shoulders. There is no demonstrated abnormality of the visualized soft tissue structures of the upper abdomen. RAD/Chest PA and Lateral IMPRESSION: Stable chest, no visualized acute focal infiltrate. Electronically Signed: Renea Heredia MD at 1:19 EDT Tel , Service support ,
--- NOTE | 2020-03-02 00:39 | ED.VIS.GEN ---
History of Present Illness Chief Complaint: Cough Informant: Patient Onset: Weeks Context: Gradual Onset Timing: Waxes and wanes Current Severity: Mild Maximum Severity: Moderate Narrative: Patient presents secondary to cough and shortness of breath. He was seen approximate week ago and diagnosed with possible early right lower lobe infiltrate. He completed a course of Zithromax. He states his chills are significantly improved. His cough is improving. He still feels like he is a lot of chest congestion. Tonight when he tried to go to bed he became very short of breath. He states he developed tingling in both hands and feet. He is not sure if this was because there was something wrong or if it was his anxiety. - Past Medical History (1) Anxiety and depression Status: Chronic (2) GERD (gastroesophageal reflux disease) Status: Chronic Past Medical History - Allergies and Home Meds Allergies/Adverse Reactions: Allergies No Known Allergies Allergy (Verified 02/21/20 13:02) Primary Care Physician: Kalli Ahn NP-C [Primary Care Provider] - Prior records reviewed: Yes Surgical History: no surgical history Smoking Status: Current some day smoker Review of Systems General: Reports: Chills - Improving. Denies: Fever Eyes: Denies: Visual changes - bilaterally ENT: Denies: Bilateral ear pain Cardiovascular: Denies: Chest pain Respiratory: Reports: Dyspnea, Cough. Denies: Sputum Gastrointestinal: Denies: Abdominal pain, Nausea, Vomiting, Diarrhea Genitourinary: Denies: Dysuria Musculoskeletal: Denies: Extremity Pain Skin: Denies: Rash Neurological: Denies: Headache Hematologic: Denies: Easy bruising Allergy: Denies: Uticaria Physical Exam Vital Signs/Narrative: Vital Signs Temp Pulse Resp BP Pulse Ox 03/02/20 00:20 98.4 F 100 16 155/92 H 100 Inital Vital Signs reviewed: Yes General: Well nourished, Well developed Head: Normocephalic ENT: Moist mucous membranes Neck: Supple Cardiovascular: Regular rate, Regular rhythm Respiratory: No distress, CTA bilaterally Abdomen: Soft, Nontender Extremities: Nontender Skin: Normal color Neurological: Alert, Oriented x3 Psychological: Normal affect Diagnostic/Tx/Re-eval Impressions Chest X-Ray 03/02/20 00:38 IMPRESSION: Stable chest, no visualized acute focal infiltrate. Electronically Signed: Renea Heredia MD at 1:19 EDT Tel , Service support , 03/02/20 00:38 Chest PA and Lateral [RAD] Stat - Medical Decision Making Chest x-ray appears to be improved. Patient will be given a dose of Mucinex here and a prescription for the same. He does have Klonopin at home to take for anxiety. He will follow with his primary care physician. ED Disposition - Plan for ED Patient: Disposition: Home or Assisted Living Diagnosis: Cough Instructions: ED URI Viral Prescriptions: Guaifenesin [Mucinex] 1,200 mg PO BID PRN PRN #[id number] PRN Reason: Congestion Transmission Status: Pending to [facility] Referrals: Kalli Ahn NP-C [Primary Care Provider] - 1 Week
[2020-03-02 01:47] VITALS: BP 155/100; PULSE 67; RESP 17; O2SAT 99
[2020-03-02] MEDS: guaiFENesin 1,200 MG Tablet 1200 MG PO (01:47)
== END 2020-03-02 01:49 | disposition home or self-care (01) ==
PROVIDERS: Emergency Provider Emergency Medicine; PCP Nurse Practitioner Family
DX: R05 Cough (principal); F41.9 Anxiety disorder, unspecified; F32.9 Major depressive disorder, single episode, unspecified; K21.9 Gastro-esophageal reflux disease without esophagitis; R06.02 Shortness of breath; R20.2 Paresthesia of skin
CPT/HCPCS: 71046; 99283

== ENCOUNTER 2020-03-09 19:45 | Emergency (ER) | payer SELFPAY ==
[2020-03-09 19:47] VITALS: BP 155/91; PULSE 71; RESP 16; TEMP 36.7; O2SAT 97; BMI 29.8
--- NOTE | 2020-03-09 20:40 | CT_ITS ---
STUDY: CT BRAIN WITHOUT CONTRAST REASON FOR EXAM: Male, 25 years old. PINK EYE IN LT EYE, VISION CHANGES, HEAD/NECK/SPINE PAIN RADIATION DOSAGE (If Supplied By Facility): CTDIvol = ( 44.99 ) mGy, DLP = ( 796.11 ) mGycm TECHNIQUE: Transaxial CT imaging of the brain was performed without administration of intravenous contrast material. Individualized dose optimization techniques were used for this CT. COMPARISON: Head CT 09/08/2019 FINDINGS: There is left periorbital soft tissue edema Normal calvarium. Normal size ventricles and extra-axial spaces for the patient''s age. Normal white matter tracts of the cerebral hemispheres. Normal basal ganglia and thalami. Normal brainstem. Normal cerebellum. There is no intracranial hemorrhage. There are no findings of an acute ischemic infarction. There is stable edema of the turbinates. There is stable deviation the bony nasal septum to the right. CT/Brain/Head without Contrast IMPRESSION: Normal unenhanced CT scan of the brain Left periorbital soft tissue edema. stable edema of the turbinates. There is stable deviation the bony nasal septum to the right. Electronically Signed: Pro Daley, at 21:45 EDT Tel , Service support ,
[2020-03-09] MEDS: 0.9% Normal Saline 1,000 ML 999 ML IV (20:54)
[2020-03-09] MEDS: proCHLORPERazine 10 MG/2 ML Vial IV (20:54)
[2020-03-09] MEDS: DiphenhydrAMINE 50 MG/ML Syringe 25 MG IV (20:54)
[2020-03-09 21:05] LABS: Absolute Lymphocyte Count 1.84 X10^3/uL (0.83-4.51); Absolute Neutrophil Count 5.2 X10^3/uL (2.0-7.7); Basophil# 0.02 X10^3/uL; Basophil% 0.3 % (0-1); Eosinophil# 0.12 X10^3/uL; Eosinophils% 1.5 % (0-5); Hematocrit 43.7 % (40-54); Hemoglobin 15.4 g/dL (13.0-16.5); Lymphocyte # 1.84 X10^3/ul (4.0); Lymphocyte % 23.6 % (19-41); Mean Corp Hgb Conc 35.2 g/dL (32-36); Mean Corpuscular Hgb 31.9 pg (27.0-32.0); Mean Corpuscular Volume 90.5 fL (80-94); Monocyte# 0.61 X10^3/uL; Monocyte% 7.8 % (0-10); NRBC Flagged by Analyzer 0 % (0-5); Neutrophil # 5.19 X10^3/uL (2.7-7.7); Neutrophil % 66.4 % (47-70); Platelet Count 210 K/mm3 (150-450); RBC Distribution Width CV 13.3 % (11.6-14.6); RBC Distribution Width SD 43.8 fl (35.1-43.9); Red Blood Count 4.83 M/mm3 (4.6-6.2); White Blood Count 7.8 K/mm3 (4.4-11.0)
[2020-03-09 21:24] LABS: Erythrocyte Sedimentation Rate < 1 mm/hr (0-15)
[2020-03-09 21:40] LABS: Anion Gap 3 (5-15); BUN 12 mg/dL (7-18); BUN/Creat Ratio 12.1 RATIO (10-20); CRP < 2.90 mg/L (0.0-3.0); Calcium,Total 8.9 mg/dL (8.5-10.1); Chloride 104 mmol/L (98-107); Creatinine, Serum 0.99 mg/dL (0.70-1.30); EST Glomerular Filtration Rate 98 mL/min (>60); Est Glom Filt Rate - Afr Amer 118 mL/min (>60); Glucose 88 mg/dL (74-106); Potassium 3.6 mmol/L (3.5-5.1); Sodium Level 137 mmol/L (136-145)
--- NOTE | 2020-03-09 22:40 | ED.VISSUMM ---
- ER Visit Summary Date of Service: 03/09/20 Chief Complaint: Headache History of Present Illness: The patient is a 25 M who presents with a headache that has been getting worse over the past 5 days. Patient states it is gradually gotten worse. Patient states he was recently started on topical antibiotics for conjunctivitis at an urgent care. Patient states that since that time he has developed a headache. Patient states his headache is generalized. Patient admits to nausea but denies any vomiting. Patient admits to some intermittent tingling. Patient admits to some blurred vision. Patient states the pain radiates down into his neck. Patient denies any fevers or chills. Physical Examination: Vital signs are stable. Patient is afebrile. Patient is in no acute distress. Pupils are equal, round, and reactive to light bilaterally. Extraocular muscles are intact. There is some mild conjunctival injection on the left. Funduscopic examination was benign. Slit-lamp examination does not show any corneal abrasion. There is no cell or flare. Anterior chamber was clear. There are no foreign bodies. Cranial nerves II through XII are intact. Strength is 5/5 bilateral in the upper and lower extremities. There are no sensory deficits. There is no tenderness over the temporal artery. Heart was regular rate and rhythm. Lungs are clear and equal bilaterally. Abdomen is soft and nontender. Test Results: CT scan of the brain was obtained. There is no acute intracranial abnormality. CBC and basic metabolic profile were within normal limits. Sed rate and CRP were normal. Emergency Department Course and Treatment: Patient was given a dose of Compazine and Benadryl. Patient was feeling better. Patient states his headache was improved. Patient was instructed to continue his antibiotic drops as previously prescribed. Patient was instructed to follow-up with his primary care physician in 3 to 5 days. Patient was instructed to return if worse in any way. Patient understood and was agreeable with the plan. All questions were answered. Disposition: Discharge home Impression: 1. Headache This note was generated with [employer]comation software. It may contain incorrect words, spelling, and punctuation that were not noted in review of the chart prior to signing ED Disposition - Plan for ED Patient: Disposition: Home or Assisted Living Diagnosis: Headache Instructions: ED Headache Unspecified Referrals: Kalli Ahn NP-C [Primary Care Provider] - 3-5 Days
[2020-03-09] MEDS: Tetracaine 0.5% Ophthalmic Bottle OPHTHALMIC (22:48)
[2020-03-09] MEDS: Fluorescein 1 MG STRIP 1 STRIP OPHTHALMIC (22:49)
[2020-03-09 22:51] VITALS: BP 148/68; PULSE 72; RESP 16; O2SAT 99
== END 2020-03-09 22:52 | disposition home or self-care (01) ==
PROVIDERS: Emergency Provider Emergency Medicine; PCP Nurse Practitioner Family
DX: R51 Headache (principal); R20.2 Paresthesia of skin; R11.0 Nausea; H53.8 Other visual disturbances; R30.0 Dysuria; M54.2 Cervicalgia; K21.9 Gastro-esophageal reflux disease without esophagitis; F41.9 Anxiety disorder, unspecified; F17.210 Nicotine dependence, cigarettes, uncomplicated
CPT/HCPCS: 70450; 80048; 85025; 85652; 86140; 99284; J7030; A4216

== ENCOUNTER 2020-08-05 16:15 | Emergency (ER) | payer SELFPAY ==
[2020-08-05 16:16] VITALS: BP 138/113; PULSE 108; RESP 18; TEMP 35.6; O2SAT 99; BMI 27.8
[2020-08-05 16:18] VITALS: BP 138/113; PULSE 108; RESP 18; TEMP 35.6; O2SAT 100
--- NOTE | 2020-08-05 16:33 | CT_ITS ---
STUDY: CTA CHEST REASON FOR EXAM: Male, 25 years old. Chest pain, SOB, COVID + RADIATION DOSAGE (If Supplied By Facility): CTDIvol = ( 10.95 ) mGy, DLP = ( 467.40 ) mGycm TECHNIQUE: The examination was performed with the intravenous administration of IV 100mL Isovue-370. Post-processing of the angiographic images was performed, with multiplanar reformation and 3D reconstruction. Individualized dose optimization techniques were used for this CT. COMPARISON: None. FINDINGS: Normal enhancement of the main pulmonary artery and right and left pulmonary arteries. Normal enhancement of the bilateral peripheral pulmonary arteries. There is no demonstrated pulmonary embolism. Normal thoracic aorta and visualized great vessels. There is no demonstrated aortic dissection. Normal heart and pericardium. Normal mediastinum. Normal hilar regions. Normal visualized trachea and bronchi. The lungs are well expanded. Normal pulmonary parenchyma. Normal pleura. Normal chest wall structures. Normal osseous structures. Normal visualized upper abdomen. CT/CTA Chest W/WO Contrast IMPRESSION: Normal CTA chest examination, without a demonstrated pulmonary embolism or arterial dissection. Electronically Signed: Braxton Elliott DO at 18:37 EST Tel [phone], Service support ,
--- NOTE | 2020-08-05 16:33 | EKG12_ITS ---
Test Reason : CP Blood Pressure : / mmHG Vent. Rate : 093 BPM Atrial Rate : 093 BPM P-R Int : 126 ms QRS Dur : 100 ms QT Int : 350 ms P-R-T Axes : 069 073 043 degrees QTc Int : 435 ms Normal sinus rhythm Normal ECG Confirmed by TEAGAN ROCKWELL MD ([id number]), supervising editor news reel ABBIE CARRERA ([id number]) on 08/06/2020 2:18:27 PM Referred By: ABDOULAYE/DIANNE Confirmed By:TEAGAN ROCKWELL MD
--- NOTE | 2020-08-05 16:35 | ED.DCSUM_ITS ---
- ER Visit Summary Date of Service: 08/05/20 Chief Complaint: Chest pain shortness of breath History of Present Illness: The patient is a 25 M no chest pain shortness of breath. Is been ongoing for 2 days. He describes a pressure in the middle part of his chest. It does not radiate. Exertion makes it worse and rest makes it better. He does have a cough and lightheadedness. He was Covid positive this week. He denies having fevers. He just feels weak. He is a smoker. He took his anxiety medications but it did not help his shortness of breath. He has no history of any coronary disease. Physical Examination: Vital signs reviewed. HEENT exam unremarkable. Heart is regular rate and rhythm without murmurs. Lungs are clear to auscultation. Abdomen is soft and nontender. Extremities reveal no edema. Peripheral pulses are equal. Skin exam normal. Neurologic exam normal. Test Results: EKG is sinus rhythm with rate of 93. No ST changes. Labs are unremarkable except for hemoglobin of 18.4. CTA of the chest shows no evidence of PE Emergency Department Course and Treatment: Patient was given Toradol and felt better. I feel that his pain is likely secondary to the coronavirus. Patient will continue NSAIDs at home. He will quarantine at home as well. Treatment Plan: [] Disposition: Discharge Impression: Chest pain, COVID-19 This note was generated with [employer] dictation software. It may contain incorrect words, spelling, and punctuation that were not noted in review of the chart prior to signing ED Disposition - Plan for ED Patient: Disposition: Home or Assisted Living Instructions: ED Chest Pain, Noncardiac Referrals: Kalli Ahn NP, ASSOCIATE PROFESSOR OF SOCIOLOGY-C [Primary Care Provider] -
[2020-08-05] MEDS: Ketorolac 15 MG/ML Vial IV (16:59)
[2020-08-05 17:00] VITALS: BP 148/102; PULSE 90; RESP 18; TEMP 35.6; O2SAT 100
[2020-08-05 17:06] LABS: Absolute Lymphocyte Count 2.39 X10^3/uL (0.83-4.51); Absolute Neutrophil Count 3.8 X10^3/uL (2.0-7.7); Basophil# 0.03 X10^3/uL; Basophil% 0.4 % (0-1); Eosinophil# 0.05 X10^3/uL; Eosinophils% 0.7 % (0-5); Hematocrit 51.3 % (40-54); Lymphocyte # 2.39 X10^3/ul (4.0); Lymphocyte % 35.7 % (19-41); Mean Corp Hgb Conc 35.9 g/dL (32-36); Mean Corpuscular Hgb 31.6 pg (27.0-32.0); Monocyte# 0.38 X10^3/uL; Monocyte% 5.7 % (0-10); NRBC Flagged by Analyzer 0 % (0-5); Neutrophil # 3.83 X10^3/uL (2.7-7.7); Neutrophil % 57.2 % (47-70); Platelet Count 229 K/mm3 (150-450); RBC Distribution Width CV 12.8 % (11.6-14.6); RBC Distribution Width SD 40.8 fl (35.1-43.9); Red Blood Count 5.83 M/mm3 (4.6-6.2); White Blood Count 6.7 K/mm3 (4.4-11.0)
[2020-08-05 17:20] LABS: Differential Indicated SCAN CRITERIA MET; POSITIVE COUNT NO; POSITIVE DIFFERENTIAL NO; POSITIVE MORPHOLOGY NO
[2020-08-05 17:24] VITALS: BP 144/106; PULSE 96; RESP 18; O2SAT 98
[2020-08-05 17:36] LABS: Anion Gap 4 (5-15); BUN 6 mg/dL (7-18); BUN/Creat Ratio 6.8 RATIO (10-20); Chloride 103 mmol/L (98-107); Creatinine, Serum 0.88 mg/dL (0.70-1.30); EST Glomerular Filtration Rate 112 mL/min (>60); Est Glom Filt Rate - Afr Amer 136 mL/min (>60); Estimated Creatinine Clearance 140.85 ml/min; Glucose 98 mg/dL (74-106); Potassium 4.4 mmol/L (3.5-5.1); Sodium Level 138 mmol/L (136-145)
[2020-08-05 17:45] LABS: Hemoglobin 18.4 g/dL (13.0-16.5)
[2020-08-05 17:46] LABS: Anisocytosis RARE; Platelet Estimate ADEQUATE (ADEQ); Red Cell Morphology N CHROM NORMAL (NORM C&C)
[2020-08-06 12:40] LABS: Pathologist Review Reviewed
== END 2020-08-05 19:03 | disposition home or self-care (01) ==
PROVIDERS: Emergency Provider Emergency Medicine; PCP Nurse Practitioner Family
DX: R07.9 Chest pain, unspecified (principal); U07.1 COVID-19
CPT/HCPCS: 71275; 80048; 84484; 85025; 93005; 96374; 99284; Q9967; A4216

== ENCOUNTER → 2020-12-01 14:47 | Outpatient (CLI) | payer SELFPAY ==
[2020-11-19 16:45] VITALS: BMI 27.3
== END ==
LOC: MTDU 14:47
PROVIDERS: PCP Nurse Practitioner Family; Referring Provider Otolaryngology; Visit Provider Otolaryngology
DX: Z11.59 Encounter for screening for other viral diseases (principal)
CPT/HCPCS: 87635; C9803; U0002

== ENCOUNTER → 2020-12-06 16:06 | Outpatient (CLI) | payer SELFPAY ==
[2020-11-19 16:45] VITALS: BMI 27.3
--- NOTE | 2020-12-06 09:03 | TONS_PTH ---
PATIENT: DAISHA BORDEN LOC: [facility] U#:[id number] AGE/SX: 30/M ROOM: RE12/06/[address]: Dr. Kolton Ibarra MD : [id number] BED: DIS: SPEC #: [id number] RECD: 12/06/20 14:51 STATUS: JOE BUFFY #: [id number] SIGRID: 12/06/20 09:[address]: Kolton Ibarra DEPT: SURGICAL PATHOLOGY RECD BY: Marquita Cr ENTERED: 12/07/20 08:06 SP TYPE: TONSILS OTHR DR: Kalli Ahn, [facility] Tissues: Tonsil, NOS Procedures: Surgery Specimen Level III HEADER OPERATION: Tonsillectomy PRE-OP DIAGNOSIS: Chronic tonsillitis TISSUE SUBMITTED: Tonsils, right pinned MICROSCOPIC DIAGNOSIS Bilateral tonsils, tonsillectomy: Reactive lymphoid hyperplasia, consistent with chronic tonsillitis. Focal actinomyces colonization. Focal superficial acute inflammation. SJ:chandana 12/08/2020 MICROSCOPIC DESCRIPTION Slides are reviewed. GROSS DESCRIPTION Received is one container labeled with the patient's name and designated tonsils - pin on right are two tonsils that in aggregate weigh 8.7 gm. The right tonsil has a pin on it and measures 3 x 2 x 0.8 cm. The left tonsil measures 3.5 x 2 x 1 cm. Both tonsils are similar in appearance. The external surfaces are pink-oro, smooth, glistening and somewhat lobulated. Focally they are hemorrhagic, granular and bear cautery artifact. Serial cross sections through the tonsils reveal normal tonsillar architecture. Sections are submitted in two cassettes as follows: 1 - right tonsil, 2 - left tonsil. / AM:chandana 12/07/20 TC:3 CPT: 42262 x2
== END ==
LOC: LABSPEC 16:07
PROVIDERS: PCP Nurse Practitioner Family; Referring Provider Otolaryngology; Visit Provider Otolaryngology
DX: J35.01 Chronic tonsillitis (principal)
CPT/HCPCS: 88304

== ENCOUNTER 2020-12-06 23:06 | Emergency (ER) | payer SELFPAY ==
[2020-11-19 16:45] VITALS: BMI 27.3
[2020-12-06 23:07] VITALS: BP 144/97; PULSE 95; RESP 18; TEMP 36.2; O2SAT 99; BMI 28.3
--- NOTE | 2020-12-07 00:12 | ED.DCSUM_ITS ---
History of Present Illness Chief Complaint: General Illness Informant: Patient Narrative: Patient is a 25-year-old male with history of anxiety presenting with hemoptysis. Patient had tonsillectomy with Dr. Kolton Ibarra this morning. This evening he started coughing up blood. He spoke to the on-call line which instructed him to come to the ER to be evaluated further. Patient states initially he felt like he was bleeding from the left side but then switched to the right side. He is says he is coughed up some slight clots. Some taking Percocet for pain control. He states he is due for a dose right now. He is having normal postoperative pain. He denies any other complaints at this time. Denies any lightheadedness, fatigue or shortness of breath. Past Medical History - Allergies and Home Meds Allergies/Adverse Reactions: Allergies No Known Allergies Allergy (Verified 12/06/20 23:09) Primary Care Physician: Kalli Ahn INSULATION AND FLOORING ASSEMBLER, INSULATION AND FLOORING ASSEMBLER-C [Primary Care Provider] - Past Medical History: - - Anxiety Surgical History: tonsillectomy Lives: With Family Smoking Status: Current every day smoker Review of Systems General: Denies: Chills, Fever, Sweats Eyes: Denies: Visual changes - bilaterally, Diplopia ENT: Reports: Sore throat, - - Bleeding from tonsils. Denies: Rhinorrhea Cardiovascular: Denies: Chest pain, Palpitations Respiratory: Denies: Dyspnea, Cough, Dyspnea on exertion Gastrointestinal: Denies: Abdominal pain, Nausea, Vomiting, Diarrhea, Melena, Hematochezia Genitourinary: Denies: Dysuria, Hematuria, Frequency Musculoskeletal: Denies: Back pain, Extremity Pain Skin: Denies: Rash, Wounds Neurological: Denies: Headache, Weakness, Numbness Physical Exam Vital Signs/Narrative: Vital Signs Temp Pulse Resp BP Pulse Ox 12/06/20 23:07 97.2 F L 95 18 144/97 H 99 Inital Vital Signs reviewed: Yes General: Well nourished, Well developed, No Acute Distress Head: Normocephalic, Atraumatic Eyes: Perrl, EOMI ENT: Moist mucous membranes, No rhinorrhea, TM's clear, - - Postop day 1 from tonsillectomy. Eschar present bilaterally with some scattered small scabs and small pinpoint areas of bright red blood, but no active bleeding. No phonation Neck: Supple, Nontender Cardiovascular: Regular rate, Regular rhythm, No murmurs Respiratory: No distress, CTA bilaterally, Chest nontender Abdomen: Soft, Nontender, Nondistended, Normal bowel sounds Back: Nontender, Normal Inspection Extremities: Nontender, No edema Skin: Normal color, No rash Neurological: Alert, Oriented x3, Cranial nerves II-XII grossly intact, Normal Strength, Normal Sensation Psychological: Normal affect, Normal Mood Diagnostic/Tx/Re-eval - Medical Decision Making Patient evaluated for bleeding status post tonsillectomy. Patient does not have any active bleeding on my exam. His throat exam appears appropriate for his postop status. He is hemodynamically stable. Patient is counseled to gargle with ice water to help with pain and bleeding. He will continue take his Percocet at home. Case is discussed with ENT on-call, Dr. Wu, who is agreeable with this plan. No further advice at this time. Patient given return precautions. Will follow up in the office as scheduled. ED Disposition - Plan for ED Patient: Disposition: Home or Assisted Living Diagnosis: Post-tonsillectomy hemorrhage Instructions: ED Post Op Wound Check, Bleeding Referrals: Kolton Ibarra MD [STAFF PHYSICIAN] - Additional Instructions: All the bleeding appears to have stopped. Gargle with ice water to help with pain and bleeding. Call your ENT and return to the emergency room should you have increased bleeding. Continue to take Percocet for pain.
== END 2020-12-07 00:37 | disposition home or self-care (01) ==
PROVIDERS: Emergency Provider Emergency Medicine; PCP Nurse Practitioner Family
DX: J95.830 Postprocedural hemorrhage of a respiratory system organ or structure following a respiratory system procedure (principal); G89.18 Other acute postprocedural pain; F17.200 Nicotine dependence, unspecified, uncomplicated
CPT/HCPCS: 99282

== ENCOUNTER 2021-07-23 03:25 | Emergency (ER) | payer SELFPAY ==
[2021-07-23 03:25] VITALS: BP 163/103; PULSE 95; RESP 18; TEMP 36.8; O2SAT 100; BMI 29.9
[2021-07-23 03:29] VITALS: BP 157/98; PULSE 98; RESP 18; TEMP 36.8; O2SAT 100
--- NOTE | 2021-07-23 03:35 | EKG12_ITS ---
Test Reason : DYSRHYTHMIA Blood Pressure : / mmHG Vent. Rate : 081 BPM Atrial Rate : 081 BPM P-R Int : 120 ms QRS Dur : 108 ms QT Int : 370 ms P-R-T Axes : 057 072 049 degrees QTc Int : 429 ms Normal sinus rhythm with sinus arrhythmia Normal ECG Confirmed by LULI KEARNS, TEAGAN ([id number]), book or script editor ABBIE CARRERA ([id number]) on 07/26/2021 8:48:04 AM Referred By: ALVARO Confirmed By:TEAGAN ROCKWELL MD
--- NOTE | 2021-07-23 03:36 | EX.ED.DYSGE1 ---
HPI History of Present Illness Chief Complaint: Shortness of Breath Informant: patient Onset/Context/Timing Onset: Weeks (1 week) Context: Gradual Onset Timing: Continuous Current Severity: Moderate Maximum Severity: Moderate Narrative Narrative: Patient present secondary to chest pressure and shortness of breath that has been ongoing for the past week. He had a mild cough and congestion. He has tried Mucinex and Claritin. He tried taking his anxiety medicine thinking it was all related to anxiety with no improvement. He just completed a [employer]-Kyle and states that he felt so bad at work 90 believe early. He denies fever. [facility] Medical History Acute pharyngitis, unspecified Hypertension Nicotine abuse SOB (shortness of breath) Home Medications clonazepam 0.5 mg tablet 0.5 mg PO PRN PRN 11/19/20 [History Last Taken Unknown] lansoprazole 15 mg capsule,delayed release 15 mg PO DAILY 11/19/20 [History Last Taken Unknown] venlafaxine 150 mg capsule,extended release 24 hr 150 mg PO DAILY cap 03/16/21 [History Last Taken Unknown] Allergy/AdvReac Type Severity Reaction Status Date / Time No Known Allergies Allergy Verified 07/23/21 03:25 Social History Smoking Status: Current every day smoker tobacco type: cigarettes ROS ROS ED Constitutional Constitutional ED: Denies chills or fever(s) Eyes Eyes: Denies change in vision ENT ENT ED: Denies sore throat Cardiovascular Cardiovascular: Reports chest pain Respiratory/Chest Respiratory/Chest: Reports cough and dyspnea Gastrointestinal Gastrointestinal: Denies abdominal pain, diarrhea, nausea or vomiting Genitourinary Genitourinary ED: Denies dysuria Musculoskeletal Musculoskeletal: Denies back pain Integumentary Denies rash Neurologic Neurologic: Denies headache(s) or weakness Allergic/Immunologic Allergic/Immunologic ED: Denies urticaria EXAM Physical Exam Const Vital Signs: 07/23/21 03:25 07/23/21 03:29 07/23/21 03:32 Temperature 98.2 F 98.2 F Temperature Source Temporal Temporal Pulse Rate 95 98 Respiratory Rate 18 18 Respiratory Effort Normal Respiratory Pattern Normal Blood Pressure 163/103 H 157/98 H Blood Pressure Mean 123 117 Pulse Ox 100 100 Oxygen Delivery Method Room Air Room Air 07/23/21 05:00 Temperature 98.8 F Temperature Source Temporal Pulse Rate 74 Respiratory Rate 17 Respiratory Effort Respiratory Pattern Blood Pressure 148/86 H Blood Pressure Mean 106 Pulse Ox 98 Oxygen Delivery Method Positive well nourished and well developed General Appearance ED: well developed HEENT Reports normocephalic and head/scalp atraumatic Eyes PERRL and EOMs intact bilaterally Neck supple Chest Wall inspection of chest normal and palpation of chest normal Resp normal respiratory effort and clear to auscultation bilaterally Cardio regular rate and regular rhythm GI normal to inspection, nondistended, normoactive bowel sounds Palpation: soft Extremity normal to inspection Neuro oriented x3 and no sensory deficits noted Sensorium / Orientation: alert Motor Exam: strength 5/5 throughout Psych mental status grossly normal Skin no rashes or lesions noted MDM MDM MDM Narrative Medical decision making narrative: Patient placed on family court justice. EKG, chest x-ray, lab work obtained. Covid swab ordered. Lab Data Labs: Laboratory Results - last 24 hr 07/23/21 07/23/21 07/23/21 03:35 03:35 03:35 WBC 8.1 RBC 5.07 Hgb 16.9 H Hct 45.7 MCV 90.1 MCH 33.3 H MCHC 37.0 H RDW Std Deviation 42.1 RDW Coeff of [place] 12.9 Plt Count 240 MPV 9.6 Immature Gran % (Auto) 0.100 Neut % (Auto) 56.2 Lymph % (Auto) 34.8 [place] % (Auto) 7.6 Eos % (Auto) 1.1 Baso % (Auto) 0.2 Absolute Neuts (auto) 4.6 Absolute Lymphs (auto) 2.82 Nucleated RBC % 0 D-Dimer Quant (PE/DVT) <= 0.27 Sodium 136 Potassium 3.7 Chloride 99 Carbon Dioxide 32.0 Anion Gap 5 BUN 12 Creatinine 0.86 Estim Creat Clear Calc 147.10 Est GFR (MDRD) Af Amer 138 Est GFR (MDRD) Non-Af 114 BUN/Creatinine Ratio 13.9 Glucose 97 Calcium 9.3 Troponin I High Sens 4 Rapid Covid test negative Radiography Chest X-Ray - ED: 1 View, Read by ED Physician, Normal, Heart, Lungs and Mediastinum EKG Initial EKG: Attestation: I personally reviewed and interpreted this EKG as follows: Interpretation: Sinus Rhythm (Sinus 81 with no acute ischemia.) Treatment and Re-Evaluation Comments:: On repeat evaluation patient resting comfortably. Test results discussed with him. Chest x-ray reveals no focal infiltrate per my interpretation. Lab work unremarkable and Covid test negative. I did advise the patient I believe his symptoms are all viral in nature. This will typically take 3 weeks to completely resolve. Supportive care discussed. Discharge Plan Triage Chief Complaint: Shortness of Breath Other Complaint: Chest Pain ED Provider: Ysabel Blunt Dx/Rx/DC Orders Clinical Impression: Viral bronchitis Instructions: ED URI, Viral, No Abx (Adult) Prescriptions: No Action lansoprazole [Prevacid] 15 mg capsule,delayed release(DR/EC) 15 mg PO DAILY RF: 0 clonazepam 0.5 mg tablet 0.5 mg PO PRN PRN (Reason: Anxiety) RF: 0 venlafaxine [Effexor XR] 150 mg capsule,extended release 24hr 150 mg PO DAILY RF: 0 Primary Care Provider: Kalli Ahn NP Referrals: Kalli Ahn NP, [employer] [Primary Care Provider] - 10-14 Days if not better Disposition Disposition: Home, Self Care
[2021-07-23 03:45] LABS: Absolute Lymphocyte Count 2.82 X10^3/uL (0.83-4.51); Absolute Neutrophil Count 4.6 X10^3/uL (2.0-7.7); Basophil# 0.02 X10^3/uL; Basophil% 0.2 % (0-1); Eosinophil# 0.09 X10^3/uL; Eosinophils% 1.1 % (0-5); Hematocrit 45.7 % (40-54); Hemoglobin 16.9 g/dL (13.0-16.5); Lymphocyte # 2.82 X10^3/ul (0.83-4.51); Lymphocyte % 34.8 % (19-41); Mean Corpuscular Hgb 33.3 pg (27.0-32.0); Mean Corpuscular Volume 90.1 fL (80-94); Mean Platelet Vol. 9.6 fl (6.2-12.0); Monocyte# 0.62 X10^3/uL; Monocyte% 7.6 % (0-10); NRBC Flagged by Analyzer 0 % (0-5); Neutrophil # 4.55 X10^3/uL (2.7-7.7); Neutrophil % 56.2 % (47-70); Platelet Count 240 K/mm3 (150-450); RBC Distribution Width CV 12.9 % (11.6-14.6); RBC Distribution Width SD 42.1 fl (35.1-43.9); Red Blood Count 5.07 M/mm3 (4.6-6.2); White Blood Count 8.1 K/mm3 (4.4-11.0)
--- NOTE | 2021-07-23 03:50 | RAD_ITS ---
HISTORY: sob EXAMINATION/TECHNIQUE: XR Chest 1 View: 2 image AP chest COMPARISON: None FINDINGS: LINES/DEVICES: None. LUNGS: No airspace consolidation. Unremarkable interstitium. No effusion. No pneumothorax. MEDIASTINUM: No cardiomegaly. MUSCULOSKELETAL: No acute osseous finding. RAD/Chest 1 View (Portable) IMPRESSION: No evidence of acute cardiopulmonary process. at 0544 Reported and signed by: Mike Burrows MD Electronically Signed: Mike Burrows MD at 5:42 EST Tel , Service support ,
[2021-07-23 04:10] LABS: D-Dimer Quantitative (DVT/PE) <= 0.27 FEU/ug/m (0.27-0.49)
[2021-07-23 04:26] LABS: Anion Gap 5 (5-15); BUN 12 mg/dL (7-18); BUN/Creat Ratio 13.9 RATIO (10-20); Calcium,Total 9.3 mg/dL (8.5-10.1); Chloride 99 mmol/L (98-107); Creatinine, Serum 0.86 mg/dL (0.70-1.30); EST Glomerular Filtration Rate 114 mL/min (>60); Est Glom Filt Rate - Afr Amer 138 mL/min (>60); Glucose 97 mg/dL (74-106); Potassium 3.7 mmol/L (3.5-5.1); Sodium Level 136 mmol/L (136-145); Troponin-I HS 4 pg/mL (3.0-78.0)
[2021-07-23 05:00] VITALS: BP 148/86; PULSE 74; RESP 17; TEMP 37.1; O2SAT 98
[2021-07-23 05:27] VITALS: BP 147/97; PULSE 74; RESP 17; TEMP 37.1; O2SAT 98
== END 2021-07-23 05:28 | disposition home or self-care (01) ==
PROVIDERS: Emergency Provider Emergency Medicine; PCP Nurse Practitioner Family
DX: J20.8 Acute bronchitis due to other specified organisms (principal); I10 Essential (primary) hypertension; F17.210 Nicotine dependence, cigarettes, uncomplicated
CPT/HCPCS: 71045; 80048; 84484; 85025; 85379; 87426; 93005; 99284; A4216

== ENCOUNTER 2022-05-31 20:32 | Emergency (ER) | payer OTHER, SELFPAY ==
[2022-05-31 20:33] VITALS: BP 140/91; PULSE 63; RESP 15; TEMP 36.4; O2SAT 99; BMI 27.7
[2022-05-31] MEDS: Ketorolac 30 MG/ML Syringe IV (21:27)
--- NOTE | 2022-05-31 21:30 | RAD_ITS ---
STUDY: X-RAY CHEST REASON FOR EXAM: Male, 27 years old. chest pain TECHNIQUE: AP portable COMPARISON: 07/23/2021 FINDINGS: The lungs are clear and expanded. There is no demonstrated pleural abnormality. Normal size heart. Normal mediastinum and nikolay. Normal visualized pulmonary arteries. Normal visualized aortic arch and descending thoracic aorta. Normal visualized thoracic spine. Normal visualized ribs, clavicles, and shoulders. There is no demonstrated abnormality of the visualized soft tissue structures of the upper abdomen. RAD/Chest 1 View (Portable) IMPRESSION: Normal x-ray examination of the chest. Electronically Signed: Jovon Restrepo MD at 21:41 EDT ,
[2022-05-31 21:45] LABS: Absolute Lymphocyte Count 2.05 X10^3/uL (0.83-4.51); Absolute Neutrophil Count 5.2 X10^3/uL (2.0-7.7); Basophil# 0.02 X10^3/uL; Basophil% 0.3 % (0-1); Eosinophil# 0.06 X10^3/uL; Eosinophils% 0.8 % (0-5); Hematocrit 43.3 % (40-54); Hemoglobin 15.6 g/dL (13.0-16.5); Lymphocyte # 2.05 X10^3/ul (0.83-4.51); Lymphocyte % 25.7 % (19-41); Mean Corpuscular Hgb 32.1 pg (27.0-32.0); Mean Corpuscular Volume 89.1 fL (80-94); Mean Platelet Vol. 10.2 fl (6.2-12.0); Monocyte# 0.58 X10^3/uL; Monocyte% 7.3 % (0-10); NRBC Flagged by Analyzer 0 % (0-5); Neutrophil # 5.24 X10^3/uL (2.7-7.7); Neutrophil % 65.6 % (47-70); Platelet Count 214 K/mm3 (150-450); RBC Distribution Width CV 12.7 % (11.6-14.6); RBC Distribution Width SD 41.1 fl (35.1-43.9); Red Blood Count 4.86 M/mm3 (4.6-6.2)
--- NOTE | 2022-05-31 21:56 | EDS_ITS ---
HPI History of Present Illness Chief Complaint: Chest Pain Informant: patient Onset/Context/Timing Onset: Days (2) Quality: heavy and tight Location: upper chest Associated Symptoms Associated Symptoms: dyspnea, dry cough, anxiety Narrative Narrative: Patient reports upper chest pain bilaterally for the past 2 days. Nothing seen regularly. It feels heavy and tight. Similar symptoms in the past with anxiety. No history of coronary disease, DVT, PE, aortic disease. No recent illnesses, fevers. No recent trauma. He tried taking his anxiety medicine as well as his reflux medicine but it is not helping. Reports an associated dry cough. Smokes 1/2 pack/day. Occasional alcohol. No drug use. [facility] Medical History Acute pharyngitis, unspecified Hypertension Nicotine abuse SOB (shortness of breath) Home Medications clonazepam 0.5 mg tablet 0.5 mg PO PRN PRN Anxiety 11/19/20 [History Last Taken Unknown] lansoprazole 15 mg capsule,delayed release (Prevacid) 15 mg PO DAILY 11/19/20 [History Last Taken Unknown] venlafaxine 150 mg capsule,extended release 24 hr (Effexor XR) 150 mg PO DAILY 03/16/21 [History Last Taken Unknown] ondansetron HCl 4 mg tablet (Zofran) 4 mg PO Q6H PRN nausea and vomiting #20 tabs 08/22/21 [Rx Last Taken Unknown] hydroxyzine pamoate 25 mg capsule (Vistaril) 25 mg PO TID PRN anxiety #10 caps 05/31/22 [Rx Last Taken Unknown] Allergy/AdvReac Type Severity Reaction Status Date / Time No Known Allergies Allergy Verified 05/31/22 20:36 Social History Smoking Status: Current every day smoker tobacco type: cigarettes ROS ROS ED Constitutional Constitutional ED: Denies chills or fever(s) Eyes Eyes: Denies blurry vision ENT ENT ED: Denies ear pain Cardiovascular Cardiovascular: Reports chest pain; Denies orthopnea, palpitations, paroxysmal nocturnal dyspnea or racing heartbeat Respiratory/Chest Respiratory/Chest: Reports cough and dyspnea; Denies orthopnea, paroxysmal nocturnal dyspnea or sputum Gastrointestinal Gastrointestinal: Denies abdominal pain, nausea or vomiting Genitourinary Genitourinary ED: Denies dysuria Musculoskeletal Musculoskeletal: Denies arthralgias Integumentary Denies abscess Neurologic Neurologic: Denies headache(s) Psychiatric Psychiatric: Reports anxiety; Denies depression, suicidal ideation or suicidal thoughts Endocrine Endocrinology: Denies cold intolerance Allergic/Immunologic Allergic/Immunologic ED: Denies mouth swelling EXAM Physical Exam Const Vital Signs: 05/31/22 20:33 Temperature 97.6 F L Temperature Source Temporal Pulse Rate 63 Respiratory Rate 15 Blood Pressure 140/91 H Blood Pressure Mean 107 Pulse Ox 99 Oxygen Delivery Method Room Air Positive well nourished and well developed General Appearance ED: well developed HEENT Reports moist mucous membranes Eyes PERRL and EOMs intact bilaterally Neck no lymphadenopathy Resp normal respiratory effort and clear to auscultation bilaterally Cardio regular rate and regular rhythm GI normal to inspection, nondistended, normoactive bowel sounds Extremity normal to inspection General Extremety ED: Negative for edema or tenderness General Extremity: Negative for edema Neuro oriented x3 Sensorium / Orientation: alert Psych mental status grossly normal Skin no rashes or lesions noted MDM MDM MDM Narrative Medical decision making narrative: EKG was interpreted by me and showed sinus rhythm at a rate of 68. No sign of acute ischemia or infarction pattern. Chest x-ray was interpreted by the radiologist and myself and showed no acute abnormalities. CBC unremarkable. BMP and troponin normal. Suspect this is anxiety related. Work-up so far has been reassuring. No risk factors. PERC negative. Will add Vistaril and he will follow-up with his PCP for chronic management of his anxiety. Disposition discharge home Impression #1 chest pain Impression #2 history of anxiety Lab Data Attestation: I reviewed the patient's lab results. Labs: Laboratory Results - last 24 hr 05/31/22 05/31/22 21:30 21:30 WBC 8.0 RBC 4.86 Hgb 15.6 Hct 43.3 MCV 89.1 MCH 32.1 H MCHC 36.0 RDW Std Deviation 41.1 RDW Coeff of [place] 12.7 Plt Count 214 MPV 10.2 Immature Gran % (Auto) 0.300 Neut % (Auto) 65.6 Lymph % (Auto) 25.7 [place] % (Auto) 7.3 Eos % (Auto) 0.8 Baso % (Auto) 0.3 Absolute Neuts (auto) 5.2 Absolute Lymphs (auto) 2.05 Nucleated RBC % 0 Sodium 138 Potassium 3.6 Chloride 105 Carbon Dioxide 28.0 Anion Gap 5 BUN 11 Creatinine 0.90 Estim Creat Clear Calc 139.33 Est GFR (MDRD) Af Amer 130 Est GFR (MDRD) Non-Af 107 BUN/Creatinine Ratio 12.2 Glucose 91 Calcium 9.4 Troponin I High Sens 5 Radiography Diagnostic Testing: Clinical Impression(s) from Imaging Studies Chest X-Ray 05/31/22 21:30 IMPRESSION: Normal x-ray examination of the chest. Electronically Signed: Jovon Restrepo MD at 21:41 EDT , Discharge Plan Triage Chief Complaint: Chest Pain ED Provider: Jones Fu Dx/Rx/DC Orders Clinical Impression: Anxiety Prescriptions: New hydroxyzine pamoate [Vistaril] 25 mg capsule 25 mg PO TID PRN (Reason: anxiety) Qty: 10 0RF No Action lansoprazole [Prevacid] 15 mg capsule,delayed release(DR/EC) 15 mg PO DAILY clonazepam 0.5 mg tablet 0.5 mg PO PRN PRN (Reason: Anxiety) venlafaxine [Effexor XR] 150 mg capsule,extended release 24hr 150 mg PO DAILY ondansetron HCl [Zofran] 4 mg tablet 4 mg PO Q6H PRN (Reason: nausea and vomiting) Qty: 20 0RF Primary Care Provider: Lexus Peña Referrals: Lexus Peña MD [Primary Care Provider] - Disposition Disposition: Home, Self Care
[2022-05-31 22:02] LABS: Anion Gap 5 (5-15); BUN 11 mg/dL (7-18); BUN/Creat Ratio 12.2 RATIO (10-20); Calcium,Total 9.4 mg/dL (8.5-10.1); Chloride 105 mmol/L (98-107); EST Glomerular Filtration Rate 107 mL/min (>60); Est Glom Filt Rate - Afr Amer 130 mL/min (>60); Estimated Creatinine Clearance 139.33 ml/min; Glucose 91 mg/dL (74-106); Potassium 3.6 mmol/L (3.5-5.1); Sodium Level 138 mmol/L (136-145); Troponin-I HS (w/2H Reflex) 5 pg/mL (3.0-78.0)
[2022-05-31 22:10] VITALS: BP 153/81; PULSE 79; RESP 18
[2022-05-31 23:39] LABS: Reflex Troponin-HS? (from REC) Y
== END 2022-05-31 22:19 | disposition home or self-care (01) ==
PROVIDERS: Emergency Provider Emergency Medicine; PCP Family Medicine; Visit Provider Emergency Medicine
DX: F41.9 Anxiety disorder, unspecified (principal); R07.9 Chest pain, unspecified; I10 Essential (primary) hypertension; F17.210 Nicotine dependence, cigarettes, uncomplicated
CPT/HCPCS: 71045; 80048; 84484; 85025; 93005; 99283; A4216

== ENCOUNTER 2022-08-19 08:08 | Emergency (ER) | payer SELFPAY ==
[2022-08-19 08:09] VITALS: BP 141/100; PULSE 77; RESP 18; TEMP 36.4; O2SAT 100; BMI 29.6
--- NOTE | 2022-08-19 08:23 | EX.ED.DYSGE1 ---
HPI History of Present Illness Chief Complaint: Anxiety Informant: patient Narrative Narrative: Presented with increasing body aches over 2 days. States having stiffness also. No fevers or headache. He has been dealing with sinus congestion for the past week he saw urgent care 4 days ago started on amoxicillin. In addition states his Paxil was increased to 40 mg 2 days ago from counseling center. He was on 20 mg. He is on it for anxiety. States 1 started a month ago did have achiness for 2 weeks before improving. He had increased anxiety to the symptoms while going to work therefore came here. Denies suicidal homicidal ideations. Prior similar symptoms: Yes [facility] Medical History Abdominal cramping Abdominal pain Acute pharyngitis, unspecified Chest pain, atypical Diarrhea Gallbladder polyp Gilbert disease Hypertension Nicotine abuse Perianal pain Rectal pain SOB (shortness of breath) Home Medications clonazepam 0.5 mg tablet 0.5 mg PO PRN PRN Anxiety 11/19/20 [History Last Taken Unknown] venlafaxine 150 mg capsule,extended release 24 hr (Effexor XR) 150 mg PO DAILY 03/16/21 [History Last Taken Unknown] ondansetron HCl 4 mg tablet (Zofran) 4 mg PO Q6H PRN nausea and vomiting #20 tabs 08/22/21 [Rx Last Taken Unknown] dicyclomine 10 mg capsule 10 mg PO BID 06/07/22 [History Last Taken Unknown] esomeprazole magnesium 40 mg capsule,delayed release 40 mg PO DAILY 06/07/22 [History Last Taken Unknown] famotidine 20 mg tablet 20 mg PO BID 06/07/22 [History Last Taken Unknown] lisinopril 20 mg tablet 20 mg PO DAILY 06/07/22 [History Last Taken Unknown] sucralfate 1 gram tablet 1 g PO QAC 06/07/22 [History Last Taken Unknown] azithromycin 250 mg tablet See Rx Instructions PO .COMPLEX #6 tabs 06/26/22 [Rx Last Taken Unknown] Allergy/AdvReac Type Severity Reaction Status Date / Time No Known Allergies Allergy Verified 08/19/22 08:09 Social History Smoking Status: Current every day smoker tobacco type: cigarettes ROS ROS ED Constitutional Constitutional ED: Denies chills, fever(s) or sweats Eyes Eyes: Denies change in vision ENT ENT ED: Reports rhinorrhea; Denies dysphagia or sore throat Cardiovascular Cardiovascular: Denies chest pain, leg edema, palpitations or racing heartbeat Respiratory/Chest Respiratory/Chest: Denies cough, dyspnea or dyspnea on exertion Gastrointestinal Gastrointestinal: Denies abdominal pain, diarrhea, nausea or vomiting Genitourinary Genitourinary ED: Denies dysuria, hematuria or urinary frequency Musculoskeletal Musculoskeletal: Reports myalgias; Denies back pain, extremity pain or neck pain Integumentary Denies rash or wounds Neurologic Neurologic: Denies headache(s), paresthesias or weakness Psychiatric Psychiatric: Reports anxiety EXAM Physical Exam Const Vital Signs: 08/19/22 08:09 08/19/22 09:23 Temperature 97.6 F L Temperature Source Temporal Pulse Rate 77 62 Respiratory Rate 18 18 Blood Pressure 141/100 H 120/84 H Blood Pressure Mean 113 96 Pulse Ox 100 99 Oxygen Delivery Method Room Air Positive well nourished and well developed General Appearance ED: well developed and NAD HEENT Reports moist mucous membranes normocephalic and atraumatic Eyes PERRL, EOMs intact bilaterally and conjunctivae normal General Eye ED: Yes normal appearance of both eyes Neck no lymphadenopathy and supple General: Negative for tenderness Chest Wall Chest: Negative for tenderness Resp normal respiratory effort and normal air movement Effort and Inspection: symmetric chest movement; Negative for respiratory distress Cardio regular rate, regular rhythm and no murmurs Peripheral Pulses: pulses 2+ throughout GI normal to inspection, nondistended, normoactive bowel sounds and non-tender Palpation: Negative for guarding or rebound tenderness present Back/Spine no CVA tenderness and no thoracic nor lumbar tenderness Extremity normal to inspection General Extremety ED: Negative for edema or tenderness General Extremity: Negative for edema Neuro oriented x3 and no sensory deficits noted Sensorium / Orientation: awake and alert Skin no rashes or lesions noted and no wounds MDM MDM MDM Narrative Medical decision making narrative: Patient presents with myalgias 2 days since increasing his Paxil. Soft compartments. Vital stable. Treated ibuprofen with time of the year influenza obtained returned negative discussed possibly false negative. He states increased chest symptoms he was here EKG sinus rhythm he is more reassured with resolved symptoms. Discussed could be continued viral syndrome he is currently on antibiotics that he will finish. Discussed could be side effect from the medications he has exact same symptoms with start a medicine a month ago lasting 2 weeks. He will discuss this with his counselor. Discharged with outpatient follow-up. All questions were answered. EKG Initial EKG: Attestation: I personally reviewed and interpreted this EKG as follows: Comments: Sinus rate of 68, no ST or T wave changes QTC 408 Discharge Plan Triage Chief Complaint: Anxiety ED Provider: Ferdinand Ward Dx/Rx/DC Orders Clinical Impression: Myalgia, Viral syndrome Instructions: ED Anxiety Reaction, ED Viral Syndrome (Adult) Prescriptions: No Action clonazepam 0.5 mg tablet 0.5 mg PO PRN PRN (Reason: Anxiety) venlafaxine [Effexor XR] 150 mg capsule,extended release 24hr 150 mg PO DAILY ondansetron HCl [Zofran] 4 mg tablet 4 mg PO Q6H PRN (Reason: nausea and vomiting) Qty: 20 0RF sucralfate 1 gram tablet 1 g PO QAC lisinopril 20 mg tablet 20 mg PO DAILY famotidine 20 mg tablet 20 mg PO BID esomeprazole magnesium 40 mg capsule,delayed release(DR/EC) 40 mg PO DAILY dicyclomine 10 mg capsule 10 mg PO BID azithromycin 250 mg tablet See Rx Instructions PO .COMPLEX Qty: 6 0RF Rx Instructions: take 500 mg today (day 1), then 250 mg for 4 days (days 2-5) PO Primary Care Provider: Lexus Peña Referrals: Lexus Peña MD [Primary Care Provider] - Activity Restrictions/Additional Instructions: Influenza negative possibly false negative. Possible side effects from your Paxil with similar reaction when initially started. No anaphylaxis. Discussed with your counselor. Continue Tylenol ibuprofen as needed. Disposition Disposition: Home, Self Care
[2022-08-19] MEDS: Ibuprofen 600 MG Tablet PO (08:26)
[2022-08-19 09:23] VITALS: BP 120/84; PULSE 62; RESP 18; O2SAT 99
[2022-08-19 09:56] VITALS: BP 120/84; PULSE 62; RESP 18
== END 2022-08-19 09:57 | disposition home or self-care (01) ==
PROVIDERS: Emergency Provider Emergency Medicine; PCP Family Medicine; Visit Provider Emergency Medicine
DX: M79.10 Myalgia, unspecified site (principal); B34.9 Viral infection, unspecified; F41.9 Anxiety disorder, unspecified; F17.210 Nicotine dependence, cigarettes, uncomplicated; I10 Essential (primary) hypertension
CPT/HCPCS: 87804; 93005; 99282

== ENCOUNTER 2022-09-10 10:55 | Emergency (ER) | payer SELFPAY ==
[2022-09-10 10:56] VITALS: BP 172/116; PULSE 81; RESP 19; TEMP 36.6; O2SAT 99; BMI 29.6
--- NOTE | 2022-09-10 11:05 | EX.ED.DYSGE1 ---
HPI History of Present Illness Chief Complaint: Allergic Reaction Informant: patient Onset/Context/Timing Onset: Weeks (1) Context: Gradual Onset Timing: Intermittent Quality: Hives Location: Face, neck, chest Worsened by: Nothing Relieved by: Nothing Associated Symptoms Associated Symptoms: Lightheaded, short of breath, anxiety Narrative Narrative: Patient presents with hives that have been intermittent over the last week. Patient states it is mainly over his face, neck, and chest. Patient denies any new exposures such as new foods, fabric softeners, laundry detergents, soaps, shampoos, colognes, or body sprays. Patient states he felt lightheaded with this. Patient states he gets some shortness of breath with this. Patient states he has a history of anxiety and is unsure if the rash is related to that. Patient denies any difficulty swallowing. Patient admits to some shortness of breath with it and some pain in his chest with it. [facility] Medical History Abdominal cramping Abdominal pain Acute pharyngitis, unspecified Chest pain, atypical Diarrhea Gallbladder polyp Gilbert disease Hypertension Nicotine abuse Perianal pain Rectal pain SOB (shortness of breath) Home Medications clonazepam 0.5 mg tablet 0.5 mg PO PRN PRN Anxiety 11/19/20 [History Last Taken Unknown] venlafaxine 150 mg capsule,extended release 24 hr (Effexor XR) 150 mg PO DAILY 03/16/21 [History Last Taken Unknown] esomeprazole magnesium 40 mg capsule,delayed release 40 mg PO DAILY 06/07/22 [History Last Taken Unknown] lisinopril 20 mg tablet 20 mg PO DAILY 06/07/22 [History Last Taken Unknown] prednisone 20 mg tablet 60 mg PO DAILY #15 TABLETS 09/10/22 [Rx Last Taken Unknown] Allergy/AdvReac Type Severity Reaction Status Date / Time No Known Allergies Allergy Verified 09/10/22 10:59 Social History Smoking Status: Current every day smoker tobacco type: cigarettes ROS ROS ED Constitutional Constitutional ED: Denies chills or fever(s) Eyes Eyes: Denies blurry vision or change in vision ENT ENT ED: Denies rhinorrhea or sore throat Cardiovascular Cardiovascular: Reports chest pain; Denies palpitations Respiratory/Chest Respiratory/Chest: Reports dyspnea; Denies cough Gastrointestinal Gastrointestinal: Reports nausea; Denies vomiting Genitourinary Genitourinary ED: Denies dysuria or hematuria Musculoskeletal Musculoskeletal: Reports neck pain; Denies back pain Integumentary Reports rash; Denies abscess Neurologic Neurologic: Denies headache(s) or weakness Allergic/Immunologic Allergic/Immunologic ED: Reports urticaria; Denies mouth swelling EXAM Physical Exam Const Vital Signs: 09/10/22 10:56 Temperature 97.8 F Temperature Source Temporal Pulse Rate 81 Respiratory Rate 19 H Blood Pressure 172/116 H Blood Pressure Mean 134 Pulse Ox 99 Oxygen Delivery Method Room Air Positive well nourished and well developed General Appearance ED: well developed and NAD HEENT Reports moist mucous membranes HEENT Narrative: Oropharynx is clear. Airway is patent. There is no edema of the oropharynx. Neck supple and no JVD Resp normal respiratory effort and clear to auscultation bilaterally Cardio regular rate, regular rhythm and no murmurs GI normal to inspection, nondistended, normoactive bowel sounds and non-tender Palpation: soft Extremity normal to inspection General Extremety ED: Negative for edema or tenderness General Extremity: Negative for edema Neuro oriented x3, CN's II-XII intact bilaterally and no sensory deficits noted Sensorium / Orientation: alert Motor Exam: strength 5/5 throughout Psych mental status grossly normal Skin Skin Narrative: There is a patchy urticarial rash noted over the face, neck, and upper chest. There are no vesicles or pustules. There are no petechia noted. There is no involvement of mucous membranes. MDM MDM MDM Narrative Medical decision making narrative: EKG was obtained. On my interpretation, it showed a sinus bradycardia with a rate of 57. [place] interval, QRS interval, and QTc intervals were all normal. [place] was normal. There are no acute ST or T wave changes. Patient was given Benadryl and prednisone here. Patient was continued to be monitored here in the emergency department. Patient was feeling better on reevaluation. Patient states he was able to get up to go to the bathroom. Patient states he looked at his neck and upper chest in the mirror and noticed his hives were improving. Patient states he feels better on reevaluation. Patient was given a prescription for prednisone. Patient was instructed to drink plenty of fluids. Patient was instructed to follow-up with his primary care physician in 5 to 7 days. Patient understood and was agreeable with the plan. All questions were answered. EKG Initial EKG: Attestation: I personally reviewed and interpreted this EKG as follows: Interpretation: No Acute Injury Pattern and Sinus Bradycardia (57) Prior EKG tracings: available for review Prior: Unchanged (08/19/2022) Discharge Plan Triage Chief Complaint: Allergic Reaction ED Provider: Deuce Chavez Dx/Rx/DC Orders Clinical Impression: Urticaria, Anxiety, Tobacco use Instructions: ED Hives (Adult) Prescriptions: New prednisone 20 mg tablet 60 mg PO DAILY Qty: 15 0RF No Action clonazepam 0.5 mg tablet 0.5 mg PO PRN PRN (Reason: Anxiety) venlafaxine [Effexor XR] 150 mg capsule,extended release 24hr 150 mg PO DAILY lisinopril 20 mg tablet 20 mg PO DAILY esomeprazole magnesium 40 mg capsule,delayed release(DR/EC) 40 mg PO DAILY Primary Care Provider: Lexus Peña Referrals: Lexus Peña MD [Primary Care Provider] - 5-7 Days Disposition Disposition: Home, Self Care
[2022-09-10] MEDS: predniSONE 20 MG Tablet 60 MG PO (11:27)
[2022-09-10] MEDS: DiphenhydrAMINE 50 MG/ML Syringe 25 MG IV (11:27)
--- NOTE | 2022-09-10 11:48 | EKG12_ITS ---
Test Reason : ALLERGIC REACTION Blood Pressure : / mmHG Vent. Rate : 057 BPM Atrial Rate : 057 BPM P-R Int : 130 ms QRS Dur : 106 ms QT Int : 410 ms P-R-T Axes : 040 043 028 degrees QTc Int : 399 ms Sinus bradycardia Otherwise normal ECG Confirmed by LULI KEARNS, TEAGAN ([id number]), production editor ABBIE CARRERA ([id number]) on 09/12/2022 9:28:34 AM Referred By: Confirmed By:TEAGAN ROCKWELL MD
--- NOTE | 2022-09-10 11:56 | EKG12_ITS ---
Test Reason : ALLERGIC REACTION Blood Pressure : / mmHG Vent. Rate : 057 BPM Atrial Rate : 057 BPM P-R Int : 130 ms QRS Dur : 106 ms QT Int : 410 ms P-R-T Axes : 040 043 028 degrees QTc Int : 399 ms Sinus bradycardia Otherwise normal ECG Confirmed by SAKSHI KEARNS, KRISTEL ([id number]), society editor ABBIE CARRERA ([id number]) on 09/14/2022 8:43:30 AM Referred By: Confirmed By:KRISTEL CANTOR MD
[2022-09-10 13:00] VITALS: RESP 18
[2022-09-10 13:31] VITALS: RESP 18
== END 2022-09-10 13:47 | disposition home or self-care (01) ==
PROVIDERS: Emergency Provider Emergency Medicine; PCP Family Medicine; Visit Provider Emergency Medicine
DX: L50.9 Urticaria, unspecified (principal); F41.9 Anxiety disorder, unspecified; I10 Essential (primary) hypertension; R00.1 Bradycardia, unspecified; F17.210 Nicotine dependence, cigarettes, uncomplicated
CPT/HCPCS: 93005; 99283; A4216

== ENCOUNTER 2023-02-11 16:45 | Emergency (ER) | payer SELFPAY ==
[2023-02-11 16:46] VITALS: BP 152/102; PULSE 92; RESP 18; TEMP 35.8; O2SAT 100; BMI 26.9
[2023-02-11 17:48] VITALS: BP 141/84
--- NOTE | 2023-02-11 18:04 | EX.ED.DYSGE1 ---
HPI History of Present Illness Chief Complaint: General Illness Informant: patient Onset/Context/Timing Onset: Yesterday Narrative Narrative: Patient presents with body aches that started yesterday. 2 days ago he got a Kenalog injection which he states he has had before secondary to allergies. Yesterday he had generalized body aches throughout, specifically in his upper back and arms. He tried Tylenol without improvement. He states he was told to avoid ibuprofen because he just got steroids. No fever has been noted. He has chronic abdominal pain and does report having abdominal cramping yesterday as well. No vomiting or diarrhea. [facility] Medical History Abdominal cramping Abdominal pain Acute pharyngitis, unspecified Chest pain, atypical Diarrhea Gallbladder polyp Generalized anxiety disorder with panic attacks Gilbert disease Hypertension Illness anxiety disorder Nicotine abuse Perianal pain Rectal pain SOB (shortness of breath) Home Medications esomeprazole magnesium 40 mg capsule,delayed release 40 mg PO DAILY 06/07/22 [History Last Taken Unknown] cetirizine 10 mg tablet (Zyrtec) 10 mg PO DAILY PRN 01/31/23 [History Last Taken Unknown] clonazepam 0.5 mg tablet 0.5 mg PO PRN PRN Anxiety #30 tabs 01/31/23 [Rx Last Taken Unknown] lisinopril 20 mg tablet 30 mg PO DAILY 01/31/23 [History Last Taken Unknown] venlafaxine 150 mg capsule,extended release 24 hr (Effexor XR) 75 mg PO DAILY 01/31/23 [History Last Taken Unknown] Allergy/AdvReac Type Severity Reaction Status Date / Time No Known Allergies Allergy Verified 02/11/23 16:48 Family History Other Anxiety Hypertension Severe allergy Social History Smoking Status: Current every day smoker tobacco type: cigarettes ROS ROS ED Constitutional Constitutional ED: Denies chills or fever(s) Eyes Eyes: Denies change in vision or discharge from eye(s) ENT ENT ED: Denies discharge from eye(s), rhinorrhea or sore throat Cardiovascular Cardiovascular: Reports chest pain; Denies palpitations Respiratory/Chest Respiratory/Chest: Denies cough or dyspnea Gastrointestinal Gastrointestinal: Reports abdominal pain; Denies diarrhea, nausea or vomiting Genitourinary Genitourinary ED: Denies difficulty urinating or dysuria Musculoskeletal Musculoskeletal: Reports back pain, extremity pain and myalgias Integumentary Denies Abrasions or rash Neurologic Neurologic: Denies headache(s) or weakness Psychiatric Psychiatric: Reports anxiety; Denies depression Allergic/Immunologic Allergic/Immunologic ED: Denies lip swelling or urticaria EXAM Physical Exam Const Vital Signs: 02/11/23 16:46 02/11/23 17:47 02/11/23 17:48 Temperature 96.5 F L Temperature Source Temporal Pulse Rate 92 Respiratory Rate 18 Respiratory Effort Normal Non-Labored Respiratory Pattern Normal Blood Pressure 152/102 H 141/84 H Blood Pressure Mean 118 103 Pulse Ox 100 Oxygen Delivery Method Room Air 02/11/23 19:00 Temperature Temperature Source Pulse Rate 78 Respiratory Rate 16 Respiratory Effort Respiratory Pattern Blood Pressure 135/88 H Blood Pressure Mean 103 Pulse Ox 100 Oxygen Delivery Method Room Air Positive well nourished and well developed General Appearance ED: well developed HEENT Reports normocephalic and head/scalp atraumatic Eyes PERRL and EOMs intact bilaterally Neck supple Chest Wall inspection of chest normal and palpation of chest normal Resp normal respiratory effort and clear to auscultation bilaterally Cardio regular rate and regular rhythm GI normal to inspection, nondistended, normoactive bowel sounds Palpation: soft Back/Spine no CVA tenderness Extremity normal to inspection Neuro oriented x3 and no sensory deficits noted Sensorium / Orientation: alert Motor Exam: strength 5/5 throughout Psych mental status grossly normal Skin no rashes or lesions noted MDM MDM MDM Narrative Medical decision making narrative: Patient given IV fluids and Toradol. Labwork obtained to evaluate for leukocytosis, anemia, and electrolyte derangement. EKG obtained to evaluate for cardiac arrhythmia/ischemia. Chest x-ray obtained to evaluate for acute lung pathology, cardiac size, or mediastinal abnormality. Swab for COVID and influenza obtained. Lab Data Attestation: I reviewed the patient's lab results. Labs: Laboratory Results - last 24 hr 02/11/23 02/11/23 02/11/23 18:25 18:30 18:30 WBC 7.2 RBC 5.25 Hgb 16.5 Hct 46.3 MCV 88.2 MCH 31.4 MCHC 35.6 RDW Std Deviation 41.5 RDW Coeff of [place] 12.8 Plt Count 245 MPV 10.2 Immature Gran % (Auto) 0.300 Neut % (Auto) 60.0 Lymph % (Auto) 29.1 [place] % (Auto) 9.2 Eos % (Auto) 0.8 Baso % (Auto) 0.6 Absolute Neuts (auto) 4.3 Absolute Lymphs (auto) 2.09 Nucleated RBC % 0 Sodium 137 Potassium 4.0 Chloride 102 Carbon Dioxide 31.0 Anion Gap 4 L BUN 9 Creatinine 0.85 Estim Creat Clear Calc 147.53 Est GFR (MDRD) Af Amer 138 Est GFR (MDRD) Non-Af 114 BUN/Creatinine Ratio 10.6 Glucose 84 Calcium 9.4 Total Bilirubin 0.90 Direct Bilirubin 0.26 AST 12 L ALT 40 Alkaline Phosphatase 75 Total Protein 7.5 Albumin 4.4 Globulin 3.1 Urine Color Yellow Urine Clarity Clear Urine pH 8.0 Ur Specific [place] 1.010 Urine Protein Negative Urine Glucose (UA) Normal Urine Ketones Negative Urine Occult Blood Negative Urine Nitrite Negative Urine Bilirubin Negative Urine Urobilinogen Normal Ur Leukocyte Esterase Negative Urine RBC 0 SEEN Urine WBC 0 SEEN Ur Squamous Epith Cells 0 SEEN Urine Bacteria 0 SEEN Urine Mucus 0 SEEN Radiography Chest X-Ray - ED: 1 View, Read by ED Physician, Normal, Heart, Lungs and Mediastinum Diagnostic Testing: Clinical Impression(s) from Imaging Studies Chest X-Ray 02/11/23 18:30 IMPRESSION: Normal x-ray examination of the chest. Electronically Signed: Jp Copeland MD at 18:51 EDT , EKG Initial EKG: Attestation: I personally reviewed and interpreted this EKG as follows: Interpretation: Sinus Rhythm (Sinus 83 with no acute ischemia.) Treatment and Re-Evaluation :: CBC reveals normal white count and differential. Chemistry studies unremarkable. LFTs normal. Urinalysis reveals no evidence of infection. Portable chest x-ray per my interpretation reveals no evidence of infiltrate. Radiology interpretation is reviewed and agrees. Swab for COVID and influenza is negative. Test results discussed with the patient. At this time I see no acute evidence of bacterial infection. He may have a viral syndrome given his body aches. He is reassured with our findings and will follow with his primary care physician. Discharge Plan Triage Chief Complaint: General Illness ED Provider: Ysabel Blunt Dx/Rx/DC Orders Clinical Impression: Myalgia Instructions: ED Myalgias Prescriptions: No Action venlafaxine [Effexor XR] 150 mg capsule,extended release 24hr 75 mg PO DAILY esomeprazole magnesium 40 mg capsule,delayed release(DR/EC) 40 mg PO DAILY lisinopril 20 mg tablet 30 mg PO DAILY cetirizine [Zyrtec] 10 mg tablet 10 mg PO DAILY PRN clonazepam 0.5 mg tablet 0.5 mg PO PRN PRN (Reason: Anxiety) Qty: 30 0RF Rx Instructions: Take 0.5 mg M,W,F,Steen and 0.25 mg T,Th,Sa Stand Alone Forms: ED Work / School Excuse Primary Care Provider: Lexus Peña Referrals: Lexus Peña MD [Primary Care Provider] - 1 Week Disposition Disposition: Home, Self Care
[2023-02-11] MEDS: 0.9% Normal Saline 1,000 ML 1000 ML IV (18:27)
[2023-02-11] MEDS: Ketorolac 30 MG/ML Syringe IV (18:28)
--- NOTE | 2023-02-11 18:30 | RAD_ITS ---
STUDY: X-RAY CHEST REASON FOR EXAM: Male, 27 years old. cough TECHNIQUE: Single AP portable view of the chest. COMPARISON: 05/31/2022 FINDINGS: The lungs are clear and expanded. There is no demonstrated pleural abnormality. Normal size heart. Normal mediastinum and nikolay. Normal visualized pulmonary arteries. Normal visualized aortic arch and descending thoracic aorta. Normal visualized thoracic spine. Normal visualized ribs, clavicles, and shoulders. There is no demonstrated abnormality of the visualized soft tissue structures of the upper abdomen. RAD/Chest 1 View (Portable) IMPRESSION: Normal x-ray examination of the chest. Electronically Signed: Jp Copeland MD at 18:51 EDT ,
[2023-02-11 18:36] LABS: Absolute Lymphocyte Count 2.09 X10^3/uL (0.83-4.51); Absolute Neutrophil Count 4.3 X10^3/uL (2.0-7.7); Basophil# 0.04 X10^3/uL; Basophil% 0.6 % (0-1); Eosinophil# 0.06 X10^3/uL; Eosinophils% 0.8 % (0-5); Hematocrit 46.3 % (40-54); Hemoglobin 16.5 g/dL (13.0-16.5); Lymphocyte # 2.09 X10^3/ul (0.83-4.51); Lymphocyte % 29.1 % (19-41); Mean Corp Hgb Conc 35.6 g/dL (32-36); Mean Corpuscular Hgb 31.4 pg (27.0-32.0); Mean Corpuscular Volume 88.2 fL (80-94); Mean Platelet Vol. 10.2 fl (6.2-12.0); Monocyte# 0.66 X10^3/uL; Monocyte% 9.2 % (0-10); NRBC Flagged by Analyzer 0 % (0-5); Neutrophil # 4.31 X10^3/uL (2.7-7.7); Platelet Count 245 K/mm3 (150-450); RBC Distribution Width CV 12.8 % (11.6-14.6); RBC Distribution Width SD 41.5 fl (35.1-43.9); Red Blood Count 5.25 M/mm3 (4.6-6.2); White Blood Count 7.2 K/mm3 (4.4-11.0)
[2023-02-11 18:36] LABS: Bacteria 0 SEEN /hpf (None Seen); Mucous, Urine 0 SEEN /hpf (<or=2+); Red Blood Cells-Urine 0 SEEN /hpf (0-5); Squamous Epithelial Cells - UA 0 SEEN /hpf (0-5); White Blood Cells 0 SEEN /hpf (0-5)
[2023-02-11 18:43] LABS: Color, Urine Yellow (Yellow); Glucose, Dipstick Normal (Normal); Ketone-Dipstick Negative (Negative); Leukocyte Esterase-Dipstick Negative /ul (Negative); Nitrite-Dipstick Negative (Negative); Occult Blood-Urine Negative /ul (Negative); Protein-Dipstick Negative (Negative); Urine Bilirubin Dipstick Negative (Negative); Urine Clarity Clear (Clear); Urine Urobilinogen Normal (Normal)
[2023-02-11 18:53] LABS: AST(SGOT) 12 U/L (15-37); Alanine Aminotransfer ALT/SGPT 40 U/L (16-61); Albumin, Serum 4.4 g/dL (3.2-5.0); Alkaline Phosphatase 75 U/L (45-117); Anion Gap 4 (5-15); BUN 9 mg/dL (7-18); BUN/Creat Ratio 10.6 RATIO (10-20); Bilirubin, Direct 0.26 mg/dL (0.00-0.30); Calcium,Total 9.4 mg/dL (8.5-10.1); Chloride 102 mmol/L (98-107); Creatinine, Serum 0.85 mg/dL (0.70-1.30); EST Glomerular Filtration Rate 114 mL/min (>60); Est Glom Filt Rate - Afr Amer 138 mL/min (>60); Estimated Creatinine Clearance 147.53 ml/min; Globulin 3.1 g/dL (2.2-4.2); Glucose 84 mg/dL (74-106); Protein, Total 7.5 g/dL (6.4-8.2); Sodium Level 137 mmol/L (136-145)
[2023-02-11 19:00] VITALS: BP 135/88; PULSE 78; RESP 16; O2SAT 100
[2023-02-11 19:18] VITALS: BP 118/67; PULSE 59; RESP 16; O2SAT 98
== END 2023-02-11 19:19 | disposition home or self-care (01) ==
PROVIDERS: Emergency Provider Emergency Medicine; PCP Family Medicine; Visit Provider Emergency Medicine
DX: M79.10 Myalgia, unspecified site (principal); I10 Essential (primary) hypertension; F17.210 Nicotine dependence, cigarettes, uncomplicated; F41.1 Generalized anxiety disorder; Z79.899 Other long term (current) drug therapy
CPT/HCPCS: 36415; 71045; 80048; 80076; 81001; 85025; 87040; 87428; 93005; 96361; 96374; 99284; J7030; A4216

== ENCOUNTER 2023-03-03 04:02 | Emergency (ER) | payer SELFPAY ==
[2023-03-03 04:03] VITALS: BP 167/105; PULSE 100; RESP 24; TEMP 35.8; O2SAT 100; BMI 27.1
--- NOTE | 2023-03-03 04:55 | EDS_ITS ---
HPI History of Present Illness Chief Complaint: Chest Other Informant: patient Narrative Narrative: Progressive epigastric burning up his chest throughout the day while at work. No nausea or vomiting. Nonbloody stools. Sent on off symptoms past 2 weeks saw his PCP placed on Nexium he states also Carafate for the past weeks plus before times a day however he is taking it twice a day. Denies NSAID use. He was referred to [facility] however appointment not for 6 months. Denies history of similar prior to this. History of anxiety. Denies recent travel surgery or immobilizations. No history of PE or DVT. States due to chest burning feels shortness of breath. Denies cough. Prior similar symptoms: Yes PFSH PFSH Medical History Abdominal cramping Abdominal pain Acute pharyngitis, unspecified Chest pain, atypical Diarrhea Gallbladder polyp Generalized anxiety disorder with panic attacks Gilbert disease Hypertension Illness anxiety disorder Nicotine abuse Perianal pain Rectal pain SOB (shortness of breath) Home Medications esomeprazole magnesium 40 mg capsule,delayed release 40 mg PO DAILY 06/07/22 [History Last Taken Unknown] cetirizine 10 mg tablet (Zyrtec) 10 mg PO DAILY PRN allergy symptoms 01/31/23 [History Last Taken Unknown] clonazepam 0.5 mg tablet 0.5 mg PO PRN PRN Anxiety #30 tabs 01/31/23 [Rx Last Taken Unknown] lisinopril 20 mg tablet 30 mg PO DAILY 01/31/23 [History Last Taken Unknown] venlafaxine 150 mg capsule,extended release 24 hr (Effexor XR) 75 mg PO DAILY 01/31/23 [History Last Taken Unknown] MAGIC MOUTH WASH (BMX) 180 mL suspension 5 ml PO Q6H PRN PRN gastric reflux #180 mL 03/03/23 [Rx Last Taken Unknown] Allergy/AdvReac Type Severity Reaction Status Date / Time No Known Allergies Allergy Verified 03/03/23 04:08 Family History Other Anxiety Hypertension Severe allergy Social History Smoking Status: Current every day smoker tobacco type: cigarettes ROS ROS ED Constitutional Constitutional ED: Denies chills, fever(s) or sweats Eyes Eyes: Denies change in vision ENT ENT ED: Denies dysphagia or sore throat Cardiovascular Cardiovascular: Reports chest pain; Denies leg edema, palpitations or racing heartbeat Respiratory/Chest Respiratory/Chest: Denies cough, dyspnea or dyspnea on exertion Gastrointestinal Gastrointestinal: Reports abdominal pain; Denies diarrhea, nausea or vomiting Genitourinary Genitourinary ED: Denies dysuria, hematuria or urinary frequency Musculoskeletal Musculoskeletal: Denies back pain, extremity pain or neck pain Integumentary Denies rash or wounds Neurologic Neurologic: Denies headache(s), paresthesias or weakness EXAM Physical Exam Const Vital Signs: 03/03/23 04:03 03/03/23 04:09 Temperature 96.4 F L Temperature Source Temporal Pulse Rate 100 Respiratory Rate 24 H Respiratory Effort Normal Blood Pressure 167/105 H Blood Pressure Mean 125 Pulse Ox 100 Positive well nourished and well developed Constitutional Narrative: Nontoxic General Appearance ED: well developed HEENT Reports moist mucous membranes normocephalic and atraumatic Eyes PERRL, EOMs intact bilaterally and conjunctivae normal General Eye ED: Yes normal appearance of both eyes Neck no lymphadenopathy and supple General: Negative for tenderness Chest Wall Chest: Negative for tenderness Resp normal respiratory effort and normal air movement Effort and Inspection: symmetric chest movement; Negative for respiratory distress Cardio regular rate, regular rhythm and no murmurs Peripheral Pulses: pulses 2+ throughout GI normal to inspection, nondistended, normoactive bowel sounds and non-tender GI Narrative: Negative Crawley's or McBurney's tenderness. Palpation: Negative for guarding or rebound tenderness present Back/Spine no CVA tenderness and no thoracic nor lumbar tenderness Extremity normal to inspection General Extremety ED: Negative for edema or tenderness General Extremity: Negative for edema Neuro oriented x3 and no sensory deficits noted Sensorium / Orientation: awake and alert Skin no rashes or lesions noted and no wounds MDM MDM MDM Narrative Medical decision making narrative: Interventions / MDM: Differential diagnosis: GERD with esophagitis, atypical chest pain Diagnosis considered but do not suspect: ACS with no ischemic changes on EKG. My EKG interpretation: Sinus rate of 85, no ST changes isolated T wave version leads III. Nonspecific. Imaging independently reviewed and interpreted by myself: N/A External documents reviewed: N/A Test considered but not ordered:N/A ED course: EKG with no ischemic findings history of reflux symptoms no gastric bleed symptoms. He was treated with GI cocktail with improvement in symptoms. Discussed continuing his Nexium he will use his Carafate 4 times a day. Prescription for Magic mouthwash to use as needed. He will monitor for rectal bleeding. He will follow-up with GI. Return precautions. All questions were answered. Re-evaluation: stable Disposition discussed with patient/family/significant other: Patient Case discussed with consulting clinician: N/A This note was generated with [employer] dictation software. It may contain incorrect words, spelling, and punctuation that were not noted in checking the note before signing. Discharge Plan Triage Chief Complaint: Chest Other ED Provider: Ferdinand Ward Dx/Rx/DC Orders Clinical Impression: GERD with esophagitis, Atypical chest pain Instructions: Esophagitis, ED GERD (Adult) Prescriptions: New MAGIC MOUTH WASH (BMX) 180 mL suspension 5 ml PO Q6H PRN PRN (Reason: gastric reflux) Qty: 180 0RF Rx Instructions: diphenhydramine 12.5 mg/5 mL oral liquid 60 mL; aluminum-mag hydroxide- simethicone 400 mg-400 mg-40 mg/5 mL oral susp 60 mL; Lidocaine Viscous 2 % mucosal solution 60 mL; Per 180 mL No Action venlafaxine [Effexor XR] 150 mg capsule,extended release 24hr 75 mg PO DAILY esomeprazole magnesium 40 mg capsule,delayed release(DR/EC) 40 mg PO DAILY lisinopril 20 mg tablet 30 mg PO DAILY cetirizine [Zyrtec] 10 mg tablet 10 mg PO DAILY PRN (Reason: allergy symptoms) clonazepam 0.5 mg tablet 0.5 mg PO PRN PRN (Reason: Anxiety) Qty: 30 0RF Rx Instructions: Take 0.5 mg M,W,F,Steen and 0.25 mg T,Th,Sa Primary Care Provider: Lexus Peña Referrals: Lexus Peña MD [Primary Care Provider] - Demond Amaya DO [Med Staff - Active Staff] - 1-2 Weeks Activity Restrictions/Additional Instructions: Continue your Nexium, Carafate 4 times a day. Use Magic mouthwash as needed for severe symptoms. Follow-up with GI. Monitor for black tarry stools. Return if worsening symptoms. Disposition Disposition: Home, Self Care Discharge Date/Time: 03/03/23 05:57
[2023-03-03] MEDS: Mag Hydrox/Al Hydrox/Simeth 30 ML UDC PO (04:57)
--- NOTE | 2023-03-03 05:16 | EKG12_ITS ---
Test Reason : CP Blood Pressure : / mmHG Vent. Rate : 085 BPM Atrial Rate : 085 BPM P-R Int : 130 ms QRS Dur : 096 ms QT Int : 358 ms P-R-T Axes : 044 057 041 degrees QTc Int : 426 ms Normal sinus rhythm Normal ECG Confirmed by SONIA KEARNS, OVIDIO ([id number]), primer expeditor and drier ABBIE CARRERA ([id number]) on 03/05/2023 1:22:56 PM Referred By: DORIE Confirmed By:RITU SCOTT MD
== END 2023-03-03 05:57 | disposition home or self-care (01) ==
PROVIDERS: Emergency Provider Emergency Medicine; PCP Family Medicine; Visit Provider Emergency Medicine
DX: R07.89 Other chest pain (principal); K21.00 Gastro-esophageal reflux disease with esophagitis, without bleeding; F41.9 Anxiety disorder, unspecified; I10 Essential (primary) hypertension; F17.210 Nicotine dependence, cigarettes, uncomplicated
CPT/HCPCS: 93005; 99283

== ENCOUNTER 2023-05-25 03:31 | Emergency (ER) | payer SELFPAY ==
[2023-05-25 03:34] VITALS: BP 154/105; PULSE 55; RESP 16; TEMP 36.4; O2SAT 100; BMI 28.6
--- NOTE | 2023-05-25 03:44 | CT_ITS ---
INDICATION: headache EXAMINATION: CT BRAIN - CT Head or Brain W/O Contrast Injection TECHNIQUE: Multiple axial images were obtained of the head with sagittal and coronal reconstructed images. Individualized dose optimization techniques were used for this CT. IV contrast dosage and agent: None. COMPARISON: 03/09/2020 CT. FINDINGS: BRAIN PARENCHYMA: No evidence of an acute infarct or intracranial hemorrhage. No evidence of a mass. CSF SPACES: The ventricles, sulci and subarachnoid cisterns are appropriate for age. CALVARIUM, SKULL BASE, PARANASAL SINUSES AND MASTOID AIR CELLS: No fracture. Mastoid air cells are clear. Visualized paranasal sinuses are unremarkable. ORBITS: The globes, extraocular muscles, optic nerves and retrobulbar fat are unremarkable. CT/Brain/Head without Contrast IMPRESSION: Normal noncontrast CT of the head. Electronically Signed: Jovon Corral DO at 4:29 EDT ,
[2023-05-25] MEDS: DiphenhydrAMINE 50 MG/ML Syringe 25 MG IV (03:55)
[2023-05-25] MEDS: dexAMETHasone 20 MG/5 ML Vial IV (03:56)
[2023-05-25] MEDS: Ketorolac 30 MG/ML Syringe IV (03:58)
[2023-05-25] MEDS: Metoclopramide 10 MG/2 ML Vial IV (04:00)
--- NOTE | 2023-05-25 04:06 | EDS_ITS ---
HPI History of Present Illness Chief Complaint: Headache Informant: patient Narrative Narrative: Patient is a 28-year-old male with past medical history of anxiety. He states for the past 2 weeks he has had congestion and sinus pressure. He states he is done nasal sprays and Sudafed and even a round of antibiotics without any symptom improvement. He states it is to the point where he is having difficulty sleeping secondary to the headache from his congestion/sinus pressure. He denies any previous history of headache or trauma prior to headache beginning and he denies any light sensitivity or phonophobia as well. However with the persistent symptoms not improving [id number] medications and even antibiotics he presents for evaluation. [facility] Medical History Abdominal cramping Abdominal pain Acute pharyngitis, unspecified Chest pain, atypical Diarrhea Gallbladder polyp Generalized anxiety disorder with panic attacks Gilbert disease Hypertension Illness anxiety disorder Nicotine abuse Perianal pain Rectal pain SOB (shortness of breath) Home Medications esomeprazole magnesium 40 mg capsule,delayed release 40 mg PO DAILY 06/07/22 [History Last Taken Unknown] cetirizine 10 mg tablet (Zyrtec) 10 mg PO DAILY PRN allergy symptoms 01/31/23 [History Last Taken Unknown] lisinopril 20 mg tablet 30 mg PO DAILY 01/31/23 [History Last Taken Unknown] buspirone 7.5 mg tablet 7.5 mg PO BID #60 tabs 03/07/23 [Rx Last Taken Unknown] venlafaxine 75 mg capsule,extended release 24 hr 75 mg PO DAILY 30 days #30 caps 03/07/23 [Rx Last Taken Unknown] clonazepam 0.125 mg disintegrating tablet 0.125 mg PO DAILY #20 tabs 05/03/23 [Rx Last Taken Unknown] prednisone 20 mg tablet 40 mg (2 x 20 mg) PO DAILY 7 days #14 tabs 05/25/23 [Rx Last Taken Unknown] Allergy/AdvReac Type Severity Reaction Status Date / Time No Known Allergies Allergy Verified 05/25/23 03:31 Family History Other Anxiety Hypertension Severe allergy Social History Smoking Status: Current every day smoker tobacco type: cigarettes ROS ROS ED Constitutional Constitutional ED: Denies chills or fever(s) Eyes Eyes: Denies change in vision ENT ENT ED: Reports rhinorrhea; Denies sore throat Cardiovascular Cardiovascular: Denies chest pain Respiratory/Chest Respiratory/Chest: Denies cough or dyspnea Gastrointestinal Gastrointestinal: Denies abdominal pain, diarrhea, nausea or vomiting Genitourinary Genitourinary ED: Denies dysuria Musculoskeletal Musculoskeletal: Denies myalgias Integumentary Denies rash Neurologic Neurologic: Reports headache(s) Hematologic/Lymphatic Hematologic/Lymphatic: Denies easy bleeding or easy bruising EXAM Physical Exam Const Vital Signs: 05/25/23 03:34 Temperature 97.6 F L Temperature Source Temporal Pulse Rate 55 L Respiratory Rate 16 Blood Pressure 154/105 H Blood Pressure Mean 121 Pulse Ox 100 Oxygen Delivery Method Room Air Positive well nourished and well developed General Appearance ED: well developed HEENT Reports moist mucous membranes HEENT Narrative: Nasal mucosa is hyperemic and boggy Patient has pain on palpation over top of the bilateral maxillary and frontal sinuses Overall head is normocephalic and atraumatic Eyes PERRL and EOMs intact bilaterally Neck supple Neck Narrative: No nuchal rigidity or meningeal signs present Resp normal respiratory effort and clear to auscultation bilaterally Cardio regular rate and regular rhythm GI normal to inspection, nondistended, normoactive bowel sounds, non-tender, non- distended and no masses Auscultation: normoactive bowel sounds Palpation: soft Extremity normal to inspection Neuro oriented x3, CN's II-XII intact bilaterally and no sensory deficits noted Neuro Narrative: Cranial nerves II through XII are grossly intact there are no focal neurologic deficits. No pronator drift no dysmetria no truncal ataxia. NIH stroke scale score of 0. Sensorium / Orientation: alert Motor Exam: strength 5/5 throughout Psych mental status grossly normal Skin no rashes or lesions noted MDM MDM MDM Narrative Medical decision making narrative: Patient presented to the ER hypertensive but otherwise with stable vitals. He reported a headache for the past 2 weeks consistent with sinus pain/pressure and congestion that did not resolve with antibiotics or lyhi-gkh-mdxhwst medication. We discussed that COVID-19 is a possibility for persistent headache but as he is not hypoxic or in distress that a positive test would not change treatment options and therefore he does not want a nasal swab obtained. Meningitis is also on the differential list but patient has no nuchal rigidity or rash I do not feel the need for a lumbar puncture. As there is concern that this could be related to potential tumor or bleed a CT was obtained which was negative. Patient was treated with IV Decadron Toradol Reglan and Benadryl and reported moderate improvement of his headache. On reevaluation his neuro exam remains normal. Therefore at this time I do not feel there is need for further imaging studies or work-up and he is otherwise safe for discharge History & Record Review Discussion w/independent historian: Patient Radiography Diagnostic Testing: Clinical Impression(s) from Imaging Studies Brain CT 05/25/23 03:44 IMPRESSION: Normal noncontrast CT of the head. Electronically Signed: Jovon Corral DO at 4:29 EDT , Discharge Plan Triage Chief Complaint: Headache ED Provider: Randy Osorio Dx/Rx/DC Orders Clinical Impression: Cephalgia Instructions: ED Headache Unspecified, ED Sinus Headache Prescriptions: New prednisone 20 mg tablet 40 mg PO DAILY 7 Days Qty: 14 0RF No Action esomeprazole magnesium 40 mg capsule,delayed release(DR/EC) 40 mg PO DAILY lisinopril 20 mg tablet 30 mg PO DAILY cetirizine [Zyrtec] 10 mg tablet 10 mg PO DAILY PRN (Reason: allergy symptoms) buspirone 7.5 mg tablet 7.5 mg PO BID Qty: 60 2RF venlafaxine 75 mg capsule,extended release 24hr 75 mg PO DAILY 30 Days Qty: 30 2RF clonazepam 0.125 mg tablet,disintegrating 0.125 mg PO DAILY Qty: 20 0RF Rx Instructions: Take 1 tablet daily for 20 days then discontinue Primary Care Provider: Lexus Peña Referrals: Lexus Peña MD [Primary Care Provider] - Activity Restrictions/Additional Instructions: Take the prednisone as directed to help control sinus pressure and inflammation which should help control your headache. You may continue Tylenol and/or Motrin if needed and you can also use Sudafed on top of the steroid if you feel persistent pressure. If you have any further concerns or worsening symptoms please return for repeat evaluation. Disposition Disposition: Home, Self Care
[2023-05-25 05:24] VITALS: BP 101/74
== END 2023-05-25 05:25 | disposition home or self-care (01) ==
PROVIDERS: Emergency Provider Emergency Medicine; PCP Family Medicine; Visit Provider Emergency Medicine
DX: R51.9 Headache, unspecified (principal); I10 Essential (primary) hypertension; F17.210 Nicotine dependence, cigarettes, uncomplicated; F41.1 Generalized anxiety disorder
CPT/HCPCS: 70450; 96374; 96375; 99283; A4216

== ENCOUNTER 2023-05-25 16:26 | Emergency (ER) | payer SELFPAY ==
[2023-05-25 16:26] VITALS: BP 140/106; PULSE 130; RESP 24; TEMP 35.8; O2SAT 100; BMI 27.1
--- NOTE | 2023-05-25 17:04 | ED.VIS.CHEST ---
HPI History of Present Illness Chief Complaint: Palpitations Narrative Narrative: 28-year-old male presenting with feelings of anxiety. Patient states he was here overnight due to headache and congestion symptoms which have been ongoing for a couple of weeks. He was given steroids and he started to feel more anxious when he woke up this morning. He is having chest tightness and shortness of breath and he also feels like he is very anxious. He took a Klonopin which she has for anxiety which did not help his symptoms. Patient did not take an extra dose of the steroid today because he received 1 overnight. Patient denies cardiac history. [facility] Medical History Abdominal cramping Abdominal pain Acute pharyngitis, unspecified Chest pain, atypical Diarrhea Gallbladder polyp Generalized anxiety disorder with panic attacks Gilbert disease Hypertension Illness anxiety disorder Nicotine abuse Perianal pain Rectal pain SOB (shortness of breath) Home Medications esomeprazole magnesium 40 mg capsule,delayed release 40 mg PO DAILY 06/07/22 [History Last Taken Unknown] cetirizine 10 mg tablet (Zyrtec) 10 mg PO DAILY PRN allergy symptoms 01/31/23 [History Last Taken Unknown] lisinopril 20 mg tablet 30 mg PO DAILY 01/31/23 [History Last Taken Unknown] buspirone 7.5 mg tablet 7.5 mg PO BID #60 tabs 03/07/23 [Rx Last Taken Unknown] venlafaxine 75 mg capsule,extended release 24 hr 75 mg PO DAILY 30 days #30 caps 03/07/23 [Rx Last Taken Unknown] clonazepam 0.125 mg disintegrating tablet 0.125 mg PO DAILY #20 tabs 05/03/23 [Rx Last Taken Unknown] prednisone 20 mg tablet 40 mg (2 x 20 mg) PO DAILY 7 days #14 tabs 05/25/23 [Rx Last Taken Unknown] Allergy/AdvReac Type Severity Reaction Status Date / Time No Known Allergies Allergy Verified 05/25/23 03:31 Family History Other Anxiety Hypertension Severe allergy Social History Smoking Status: Current every day smoker tobacco type: cigarettes ROS ROS ED Constitutional Constitutional ED: Denies chills or fever(s) Eyes Eyes: Denies blurry vision or change in vision ENT ENT ED: Denies rhinorrhea Cardiovascular Cardiovascular: Reports chest pain and palpitations Respiratory/Chest Respiratory/Chest: Reports dyspnea Gastrointestinal Gastrointestinal: Denies nausea or vomiting Musculoskeletal Musculoskeletal: Denies back pain or neck pain Integumentary Denies abscess Neurologic Neurologic: Reports headache(s) Psychiatric Psychiatric: Reports anxiety; Denies suicidal ideation or suicidal thoughts EXAM Physical Exam Const Vital Signs: 05/25/23 16:26 05/25/23 17:06 05/25/23 17:06 Temperature 96.4 F L Temperature Source Temporal Pulse Rate 130 H Respiratory Rate 24 H Respiratory Effort Normal Non-Labored Blood Pressure 140/106 H Blood Pressure Mean 117 Pulse Ox 100 Oxygen Delivery Method Room Air Room Air 05/25/23 18:05 Temperature Temperature Source Pulse Rate 100 Respiratory Rate 16 Respiratory Effort Blood Pressure 135/81 H Blood Pressure Mean 99 Pulse Ox 96 Oxygen Delivery Method Room Air Positive well nourished General Appearance ED: NAD; Negative for pallor HEENT Reports TM's clear atraumatic Tympanic Membrane ED: Yes TM's clear Eyes PERRL and EOMs intact bilaterally Chest Wall inspection of chest normal and palpation of chest normal Resp normal respiratory effort and clear to auscultation bilaterally Cardio regular rhythm Rate: tachycardic GI normal to inspection, nondistended, normoactive bowel sounds Neuro oriented x3 and CN's II-XII intact bilaterally Sensorium / Orientation: awake and alert Motor Exam: strength 5/5 throughout Psych Mood & Affect: anxious Skin no wounds General Skin Exam: Negative for jaundice or pallor Heart Score History: Slightly/Non-Suspicious ECG: Normal Risk Factors: No Risk Factors Troponin: </= Normal Limit Score: 0 MDM MDM MDM Narrative Medical decision making narrative: Presenting with chest tightness and shortness of breath. He believes is due to the steroids. He has had steroids in the past that did make him anxious but not quite as anxious as he has today. Differential includes acute coronary syndrome, pneumonia, anxiety, dehydration, electrolyte abnormalities, dysrhythmia. CBC will be obtained to assess white blood cell count, hemoglobin, platelets. BMP to assess renal function and electrolytes. High-sensitivity troponin and EKG to assess for ischemia and dysrhythmia. Patient does have a heart rate of 130 on arrival. Chest x-ray will be obtained to rule out pneumonia. D-dimer will be obtained to rule out PE. Patient states that he feels very anxious but does not want anything for anxiety because he wants to try go to work today if his work-up is normal. CBC shows a slight leukocytosis at 13.2 which is likely partially reactive and partially due to steroid use. Hemoglobin stable at 16.7 slightly concentrated. Platelets normal at 267. Renal function and electrolytes within normal limits. High-sensitivity troponin 5. No believe he is a delta troponin. EKG on my interpretation shows a sinus tachycardia at a rate of 100 bpm without sign of ischemic change or ectopy. Chest x-ray my interpretation shows no acute process. D-dimer negative. Doing better on reexamination. I counseled him this is likely due to the steroid use and likely he is having some anxiety from this. He did not want a medication for this and wants to try to work. I recommended he uses Klonopin as needed. Impression: 1. Medication side effect 2. Chest pain?noncardiac 3. Leukocytosis 4. Anxiety Lab Data Attestation: I reviewed the patient's lab results. Labs: Laboratory Results - last 24 hr 05/25/23 17:00 WBC 13.2 H RBC 5.16 Hgb 16.7 H Hct 46.8 MCV 90.7 MCH 32.4 H MCHC 35.7 RDW Std Deviation 42.3 RDW Coeff of Iraida 12.8 Plt Count 262 MPV 9.8 Immature Gran % (Auto) 0.300 Neut % (Auto) 90.6 H Lymph % (Auto) 6.5 L Castro % (Auto) 2.5 Eos % (Auto) 0.0 Baso % (Auto) 0.1 Absolute Neuts (auto) 12.0 H Absolute Lymphs (auto) 0.86 Nucleated RBC % 0 D-Dimer Quant (PE/DVT) < 0.27 L Sodium 135 L Potassium 4.0 Chloride 103 Carbon Dioxide 27.0 Anion Gap 5 BUN 7 Creatinine 1.04 Estim Creat Clear Calc 116.07 Est GFR (MDRD) Af Amer 109 Est GFR (MDRD) Non-Af 90 BUN/Creatinine Ratio 6.7 L Glucose 176 H Calcium 9.6 Troponin I High Sens 5 Radiography Diagnostic Testing: Clinical Impression(s) from Imaging Studies Chest X-Ray 05/25/23 17:30 IMPRESSION: No radiographic evidence of acute cardiopulmonary disease. Electronically Signed: Duc Munroe MD at 17:58 EDT , Discharge Plan Triage Chief Complaint: Palpitations ED Provider: Gabo Mccloud Dx/Rx/DC Orders Instructions: ED Anxiety Reaction, ED Chest Pain, Noncardiac, ED Palpitations Prescriptions: No Action esomeprazole magnesium 40 mg capsule,delayed release(DR/EC) 40 mg PO DAILY lisinopril 20 mg tablet 30 mg PO DAILY cetirizine [Zyrtec] 10 mg tablet 10 mg PO DAILY PRN (Reason: allergy symptoms) buspirone 7.5 mg tablet 7.5 mg PO BID Qty: 60 2RF venlafaxine 75 mg capsule,extended release 24hr 75 mg PO DAILY 30 Days Qty: 30 2RF clonazepam 0.125 mg tablet,disintegrating 0.125 mg PO DAILY Qty: 20 0RF Rx Instructions: Take 1 tablet daily for 20 days then discontinue prednisone 20 mg tablet 40 mg PO DAILY 7 Days Qty: 14 0RF Primary Care Provider: Lexus Peña Referrals: Lexus Peña MD [Primary Care Provider] - Disposition Disposition: Home, Self Care Discharge Date/Time: 05/25/23 18:13
[2023-05-25 17:10] LABS: Absolute Lymphocyte Count 0.86 X10^3/uL (0.83-4.51); Basophil# 0.01 X10^3/uL; Basophil% 0.1 % (0-1); Hematocrit 46.8 % (40-54); Hemoglobin 16.7 g/dL (13.0-16.5); Lymphocyte # 0.86 X10^3/ul (0.83-4.51); Lymphocyte % 6.5 % (19-41); Mean Corp Hgb Conc 35.7 g/dL (32-36); Mean Corpuscular Hgb 32.4 pg (27.0-32.0); Mean Corpuscular Volume 90.7 fL (80-94); Mean Platelet Vol. 9.8 fl (6.2-12.0); Monocyte# 0.33 X10^3/uL; Monocyte% 2.5 % (0-10); NRBC Flagged by Analyzer 0 % (0-5); Neutrophil # 11.98 X10^3/uL (2.7-7.7); Neutrophil % 90.6 % (47-70); Platelet Count 262 K/mm3 (150-450); RBC Distribution Width CV 12.8 % (11.6-14.6); RBC Distribution Width SD 42.3 fl (35.1-43.9); Red Blood Count 5.16 M/mm3 (4.6-6.2); White Blood Count 13.2 K/mm3 (4.4-11.0)
[2023-05-25 17:20] LABS: D-Dimer Quantitative (DVT/PE) < 0.27 FEU/ug/m (0.27-0.49)
[2023-05-25 17:26] LABS: Anion Gap 5 (5-15); BUN 7 mg/dL (7-18); BUN/Creat Ratio 6.7 RATIO (10-20); Calcium,Total 9.6 mg/dL (8.5-10.1); Chloride 103 mmol/L (98-107); Creatinine, Serum 1.04 mg/dL (0.70-1.30); EST Glomerular Filtration Rate 90 mL/min (>60); Est Glom Filt Rate - Afr Amer 109 mL/min (>60); Estimated Creatinine Clearance 116.07 ml/min; Glucose 176 mg/dL (74-106); Sodium Level 135 mmol/L (136-145); Troponin-I HS 5 pg/mL (3.0-78.0)
--- NOTE | 2023-05-25 17:30 | RAD_ITS ---
EXAM: XR CHEST, 1 VIEW CLINICAL INDICATION: chest pain TECHNIQUE: Frontal view of the chest. COMPARISON: 02/11/2023 FINDINGS: LUNGS AND PLEURAL SPACES: Unremarkable. No consolidation or edema. No pneumothorax. No effusion. HEART: Unremarkable. Cardiac silhouette not enlarged. MEDIASTINUM: Central airways and mediastinal contour are unremarkable. BONES/JOINTS: Unremarkable. SOFT TISSUES: Unremarkable. RAD/Chest 1 View (Portable) IMPRESSION: No radiographic evidence of acute cardiopulmonary disease. Electronically Signed: Duc Munroe MD at 17:58 EDT ,
[2023-05-25 18:05] VITALS: BP 135/81; PULSE 100; RESP 16; O2SAT 96
== END 2023-05-25 18:13 | disposition home or self-care (01) ==
PROVIDERS: Emergency Provider Student in an Organized Health Care Education/Training Program; PCP Family Medicine; Visit Provider Student in an Organized Health Care Education/Training Program
DX: F41.1 Generalized anxiety disorder (principal); I10 Essential (primary) hypertension; D72.829 Elevated white blood cell count, unspecified; F17.210 Nicotine dependence, cigarettes, uncomplicated; Z79.899 Other long term (current) drug therapy; R07.9 Chest pain, unspecified; T38.0X5A Adverse effect of glucocorticoids and synthetic analogues, initial encounter
CPT/HCPCS: 71045; 80048; 84484; 85025; 85379; 93005; 99284; A4216

== ENCOUNTER 2023-06-11 12:30 | Emergency (ER) | payer SELFPAY ==
[2023-06-11 12:31] VITALS: BP 140/94; PULSE 106; RESP 16; TEMP 36.3; O2SAT 100; BMI 27.1
--- NOTE | 2023-06-11 13:22 | EDS_ITS ---
HPI <OSMEL Montano - Last Filed: 06/11/23 14:24> HPI - Psych History of Present Illness Chief Complaint: Anxiety Narrative Narrative: 20-year-old male is had 3 weeks of increasing anxiety, panic attacks, and tension headaches. He is a patient of psychiatrist Dr. Jessica in [place]. He has a plan through psychiatry to wean off Klonopin and is currently taking 0.5 mg 1-2 times a day. He is also on BuSpar and Effexor. He thinks weaning off the medication has increased his anxiety and he is very tearful and also having a lot of tension in his neck and jaw from TMJ. He states he wears a nightguard and is in physical therapy for TMJ but its not helping. He has been seen here on 05/25 for this and had normal blood work and CT brain scan. His headache today is the same. No fever, neck pain, visual or neurological symptoms. He felt more acutely anxious this morning and could not get in with his psychiatrist with the assistant refinery operator there recommended he come to the ED. [facility] <OSMEL Montano - Last Filed: 06/11/23 14:24> [facility] Medical History Abdominal cramping Abdominal pain Acute pharyngitis, unspecified Chest pain, atypical Diarrhea Gallbladder polyp Generalized anxiety disorder with panic attacks Gilbert disease Hypertension Illness anxiety disorder Nicotine abuse Perianal pain Rectal pain SOB (shortness of breath) Home Medications esomeprazole magnesium 40 mg capsule,delayed release 40 mg PO DAILY 06/07/22 [History Last Taken Unknown] cetirizine 10 mg tablet (Zyrtec) 10 mg PO DAILY PRN allergy symptoms 01/31/23 [History Last Taken Unknown] lisinopril 20 mg tablet 30 mg PO DAILY 01/31/23 [History Last Taken Unknown] buspirone 7.5 mg tablet 7.5 mg PO BID #60 tabs 03/07/23 [Rx Last Taken Unknown] venlafaxine 75 mg capsule,extended release 24 hr 75 mg PO DAILY 30 days #30 caps 03/07/23 [Rx Last Taken Unknown] clonazepam 0.125 mg disintegrating tablet 0.125 mg PO DAILY #20 tabs 05/03/23 [Rx Last Taken Unknown] prednisone 20 mg tablet 40 mg (2 x 20 mg) PO DAILY 7 days #14 tabs 05/25/23 [Rx Last Taken Unknown] metoclopramide HCl 5 mg tablet (Reglan) 5 mg PO Q8H PRN PRN nausea and vomiting 7 days #20 tabs 06/11/23 [Rx Last Taken Unknown] Allergy/AdvReac Type Severity Reaction Status Date / Time No Known Allergies Allergy Verified 06/11/23 12:31 Family History Other Anxiety Hypertension Severe allergy Social History Smoking Status: Current every day smoker tobacco type: cigarettes ROS <OSMEL Montano - Last Filed: 06/11/23 14:24> ROS ED ROS Narrative Constitutional: Negative for fever, chills, malaise. Eyes: Negative for visual change. GI: Negative for nausea, vomiting Neuro: Positive for headache, negative for motor/sensory dysfunction. EXAM <OSMEL Montano - Last Filed: 06/11/23 14:24> Physical Exam Narrative Exam Narrative: CONST: Patient sitting in no acute distress. EYES: Normal inspection. PERRLA, EOMI. ENT: Normal inspection, moist mucous membranes. NECK: Normal inspection. No meningismus. RESP: No respiratory distress, CTAB. CVS: Regular rate and rhythm, no murmur, no gallop. SKIN: Color normal, no rash, warm, dry, intact. EXTREMITIES: Normal appearance, no pedal edema. NEURO: Oriented x4. 5/5 upper and lower extremity strength, normal finger-nose and heel joy, normal gait PSYCH: Normal affect. Const Vital Signs: 06/11/23 12:31 Temperature 97.4 F L Temperature Source Temporal Pulse Rate 106 H Respiratory Rate 16 Blood Pressure 140/94 H Blood Pressure Mean 109 Pulse Ox 100 Oxygen Delivery Method Room Air <Dr. Glenn Sharif DO - Last Filed: 06/11/23 14:35> Physical Exam Const Vital Signs: 06/11/23 12:31 Temperature 97.4 F L Temperature Source Temporal Pulse Rate 106 H Respiratory Rate 16 Blood Pressure 140/94 H Blood Pressure Mean 109 Pulse Ox 100 Oxygen Delivery Method Room Air MDM <OSMEL Montano - Last Filed: 06/11/23 14:24> [facility] Narrative Medical decision making narrative: Patient was sent here for acute anxiety because he could not be seen by his psychiatrist. He is on a plan to wean off Klonopin. He also takes Effexor and BuSpar. He is initially tearful and anxious but did calm down while talking with me. He is not suicidal or homicidal. He is trying to take Klonopin once a day currently and has not had a dose yet today so states he may take that as he has it with him. He has had some chronic headaches over the last 3 weeks which could be related to the weaning of medication but he also has TMJ and is in physical therapy for this. He is describing a tension headache. He has had a negative CT brain scan here on 05/25 and with a normal neurological exam today I do not think this needs repeated. He was given Toradol and Reglan for the headache and I provided a neurology referral. I also recommended he see his psychiatrist as scheduled and he was discharged in stable condition. <Dr. Glenn Sharif, DO - Last Filed: 06/11/23 14:35> [facility] Treatment and Re-Evaluation Narrative: ED attending note: I evaluated the patient in conjunction with the EDDI. I agree with his/her statements and above findings. I have personally performed a face to face assessment of the patient and have reviewed the EDDI Note. I performed a substantive portion of the visit including all aspects of the following. I personally saw the patient performed chart review, physical exam, reviewed labs, imaging (if obtained), and formulated a treatment and management plan. Brief history: 28-year-old male here with headache. Patient denies sudden onset or thunderclap headache, denies maximal intensity within 1 minute, vomiting, neck pain, stiffness, changes in vision, fever, history malignancy, syncope, or seizures associated with headache. Exam: Nursing triage notes reviewed, Vital signs reviewed Constitutional: please see [facility] HENT: MMM Eyes: Pupils equal round and reactive to light, Extraocular muscles intact Neck: No stridor, no JVD, full neck ROM Lungs: Clear to auscultation, No wheezing or rales. No increased work of breathing, no conversational dyspnea, no accessory muscle use, no nasal flaring. No respiratory distress noted Heart: Regular rate and rhythm, No murmurs, No rubs and No gallops, 2+ distal pulses (radial, femoral, posterior tibial) in all extremities Abdomen: Soft, there is no tenderness, rigidity, rebound or guarding, no obvious peritoneal signs, no palpable pulsatile abdominal masses, no auscultated abdominal bruit : No CVAT Extremities: No edema Neuro: Alert and oriented x3, neuro exam at baseline, cranial nerves II through XII are intact. No pain with extraocular muscle movement. There is negative test of skew. 5 of 5 strength in upper and lower extremities in flexion extension. Intact sensation to light touch in upper and lower extremity dermatomes. No truncal or extremity ataxia. No dysdiadochokinesia. Normal gait. 2+ reflexes in upper and lower extremities. No meningeal signs. Negative Babinski. NIH of 0. Skin: No rash or lesions noted MDM/plan: Chief Complaint: Anxiety, headache External records reviewed: Imaging studies reviewed: CT scan of the head from 2022 shows no radiographic evidence ofAcute intracranial process Factors affecting care: Anxiety, hypertension Social determinants of health: Current everyday smoker History obtained from others: none Consults: None MDM narrative: Patient was hemodynamically stable, afebrile, nontoxic-appearing. Exam without neurologic deficits. The patient looks great and is in no significant objective discomfort currently. The patient's headache is non-specific. Exam is unremarkable. The patient is in no distress and the patient?s neurological exam is non-focal, neck is supple and without meningismus. The headache is not consistent with meningitis or infection, nor is it consistent with intracranial bleed (SAH etc.), carotid dissection, nor mass by history and examination. Medication and outpatient follow-up was instructed. The patient was instructed to return as needed or if symptoms changed or worsened, fever developed or inability to tolerate fluids. The patient agreed with plan. Shared decision making: I will have a discussion with the patient and or visitors regarding risk/ benefits of further testing or admission. They will be made aware of of the risk/benefits inherent in this decision they will be given the opportunity to voice understanding. Discharge Plan Triage Chief Complaint: Anxiety ED Midlevel Provider: Mayda Garcia ED Provider: Glenn Sharif Dx/Rx/DC Orders Clinical Impression: Anxiety, Chronic headache Instructions: Anxiety Disorders Tx, Understanding Headache Pain Prescriptions: New metoclopramide HCl [Reglan] 5 mg tablet 5 mg PO Q8H PRN PRN (Reason: nausea and vomiting) 7 Days Qty: 20 0RF No Action esomeprazole magnesium 40 mg capsule,delayed release(DR/EC) 40 mg PO DAILY lisinopril 20 mg tablet 30 mg PO DAILY cetirizine [Zyrtec] 10 mg tablet 10 mg PO DAILY PRN (Reason: allergy symptoms) buspirone 7.5 mg tablet 7.5 mg PO BID Qty: 60 2RF venlafaxine 75 mg capsule,extended release 24hr 75 mg PO DAILY 30 Days Qty: 30 2RF clonazepam 0.125 mg tablet,disintegrating 0.125 mg PO DAILY Qty: 20 0RF Rx Instructions: Take 1 tablet daily for 20 days then discontinue prednisone 20 mg tablet 40 mg PO DAILY 7 Days Qty: 14 0RF Primary Care Provider: Lexus Peña Referrals: Lexus Peña MD [Primary Care Provider] - Ziyad Maharaj MD [Non-Staff -Ordering Privileges] - Activity Restrictions/Additional Instructions: Please follow-up with your psychiatrist, for your headaches and would follow-up with neurology for further evaluation. Disposition Disposition: Home, Self Care
[2023-06-11] MEDS: Ketorolac 15 MG/ML Vial IM (13:30)
[2023-06-11] MEDS: Metoclopramide 5 MG TABLET PO (14:39)
[2023-06-11 14:41] VITALS: BP 136/85; PULSE 70; RESP 18; O2SAT 95
--- NOTE | 2023-06-11 14:41 | CM.ED ---
Social Work Referral Source: case find Referral Reason: resources SW met with patient and introduced self and role as [facility] SW. Patient lying on hospital bed and agreeable to speak with SW. SW engaged patient in conversation regarding insurance and community resource needs as patient is listed as self pay. Patient reports never applying for Medicaid before. Patient receptive towards Medicaid application and instructions. SW also provided and reviewed [facility] resource list as well as information for [facility] and [facility] and encouraged patient to contact for assistance with Medicaid application. SW then engaged patient in conversation regarding MH engagement. Patient verified he is working with Dr. Jessica and needs to start counseling services. SW provided and reviewed community MH agencies contact information, crisis contact information as well as information for [facility]PHP. Patient declined referrals but was receptive and appreciative of information provided. No other needs voiced at this time; SW remains available if needs arise. Mary Ann Burnette ENVIRONMENTAL RESEARCH PROJECT MANAGER, [place]
== END 2023-06-11 14:42 | disposition home or self-care (01) ==
LOC: ED 14:21
PROVIDERS: Emergency Provider Emergency Medicine; PCP Family Medicine; Visit Provider Emergency Medicine
DX: F41.9 Anxiety disorder, unspecified (principal); F17.210 Nicotine dependence, cigarettes, uncomplicated; I10 Essential (primary) hypertension; R51.9 Headache, unspecified; M26.609 Unspecified temporomandibular joint disorder, unspecified side
CPT/HCPCS: 96372; 96374; 99282

== ENCOUNTER → 2023-08-28 | Outpatient (CLI) | payer SELFPAY ==
[2023-08-28 17:24] LABS: Free T3 3.4 pg/mL (2.18-3.98); T4 Free Direct 0.95 ng/dL (0.76-1.46)
== END | disposition home or self-care (01) ==
PROVIDERS: PCP Family Medicine; Referring Provider Student in an Organized Health Care Education/Training Program; Visit Provider Student in an Organized Health Care Education/Training Program
DX: F45.21 Hypochondriasis (principal); F41.1 Generalized anxiety disorder; F41.0 Panic disorder [episodic paroxysmal anxiety]
CPT/HCPCS: 36415; 84439; 84443; 84481

== ENCOUNTER → 2024-01-09 | Outpatient (CLI) | payer SELFPAY ==
--- NOTE | 2024-01-09 14:35 | RAD_ITS ---
HISTORY: Neck pain, occipital neuralgia. TECHNIQUE: XR Spine Cervical 2 or 3 Views. COMPARISON: None. FINDINGS: VERTEBRAE: Vertebral body heights maintained. No acute fracture identified. ALIGNMENT: No significant anterior or posterior subluxation. Slight reversal of the cervical lordosis. INTERVERTEBRAL DISCS: Disc heights preserved. SOFT TISSUES: No significant prevertebral soft tissue swelling. RAD/Cerv Spine 2 or 3 Views IMPRESSION: No acute fracture or dislocation identified in the cervical spine. Electronically Signed: Whitney Driver MD at 15:19 EDT ,
[2024-01-09 18:19] LABS: Hemoglobin 16.8 g/dL (13.0-16.5); Mean Corp Hgb Conc 35.7 g/dL (32-36); Mean Corpuscular Hgb 30.9 pg (27.0-32.0); Mean Corpuscular Volume 86.6 fL (80-94); Mean Platelet Vol. 10.4 fl (6.2-12.0); Platelet Count 234 K/mm3 (150-450); RBC Distribution Width CV 12.5 % (11.6-14.6); RBC Distribution Width SD 39.1 fl (35.1-43.9); Red Blood Count 5.43 M/mm3 (4.6-6.2); White Blood Count 5.7 K/mm3 (4.4-11.0)
[2024-01-09 18:45] LABS: Vitamin B12 307 pg/mL (211-911)
[2024-01-09 18:59] LABS: ALB/GLOB Ratio 1.4 RATIO (0.9-2.4); AST(SGOT) 18 U/L (15-37); Alanine Aminotransfer ALT/SGPT 50 U/L (16-61); Albumin, Serum 4.5 g/dL (3.2-5.0); Alkaline Phosphatase 64 U/L (45-117); Anion Gap 8 (5-15); BUN 12 mg/dL (7-18); Calcium,Total 9.5 mg/dL (8.5-10.1); Chloride 102 mmol/L (98-107); Creatinine, Serum 0.92 mg/dL (0.70-1.30); EST Glomerular Filtration Rate 103 mL/min (>60); Est Glom Filt Rate - Afr Amer 125 mL/min (>60); Globulin 3.2 g/dL (2.2-4.2); Glucose 83 mg/dL (74-106); Magnesium 2.2 mg/dL (1.6-2.6); Potassium 3.4 mmol/L (3.5-5.1); Protein, Total 7.7 g/dL (6.4-8.2); Sodium Level 136 mmol/L (136-145); Thyroid Stim Hormone (TSH) 0.69 uIU/mL (0.358-3.74)
[2024-01-14 12:08] LABS: Vitamin D 1,25-Dihydroxy 42.6 pg/mL (24.8-81.5)
== END | disposition home or self-care (01) ==
PROVIDERS: PCP Family Medicine; Referring Provider Psychiatry & Neurology Neurology; Visit Provider Psychiatry & Neurology Neurology
DX: M54.2 Cervicalgia (principal); M54.81 Occipital neuralgia; R53.83 Other fatigue
CPT/HCPCS: 36415; 72040; 80053; 82607; 82652; 83735; 84443; 85027

== ENCOUNTER 2024-03-08 23:17 | Emergency (ER) | payer SELFPAY ==
[2024-03-08 23:17] VITALS: BP 167/96; PULSE 92; RESP 20; TEMP 36.6; O2SAT 100; BMI 25.0
--- NOTE | 2024-03-08 23:26 | RAD_ITS ---
INDICATION: dyspnea EXAMINATION/TECHNIQUE: X-RAY - XR Chest 2 Views COMPARISON: 05/25/2023 FINDINGS: LINES/DEVICES: None. LUNGS: No consolidation, edema or effusion. No pneumothorax. MEDIASTINUM AND CARDIOVASCULAR STRUCTURES: Cardiac silhouette not enlarged. Central airways and mediastinal contour are unremarkable. BONES AND SOFT TISSUES: Unremarkable. RAD/Chest PA and Lateral IMPRESSION: No radiographic evidence of acute cardiopulmonary disease. Electronically Signed: Kelvin Albert MD at 0:32 EDT ,
--- NOTE | 2024-03-08 23:26 | EKG12_ITS ---
Test Reason : DYSRHYTHMIA Blood Pressure : / mmHG Vent. Rate : 086 BPM Atrial Rate : 086 BPM P-R Int : 124 ms QRS Dur : 106 ms QT Int : 356 ms P-R-T Axes : 067 072 057 degrees QTc Int : 426 ms Normal sinus rhythm Possible Left atrial enlargement Incomplete right bundle branch block Borderline ECG Confirmed by SONIA KEARNS, OVIDIO ([id number]), non linear editor GINA PRINCE ([id number]) on 03/12/2024 9:45:13 AM Referred By: DEJAN Confirmed By:RITU SCOTT MD
--- NOTE | 2024-03-08 23:27 | ED.VIS.DYS ---
HPI History of Present Illness Chief Complaint: Shortness of Breath Informant: patient Narrative Narrative: 29-year-old male presenting to the emergency room with his dyspnea. Patient states for the past 2 days he has felt a tightness in his upper chest and neck. States it makes it difficult for him to breathe. He has a history of anxiety as well as allergies. He has been taking his allergy medicine including Zyrtec and Flonase. He denies any significant nasal congestion. No sputum production. No fevers. Patient denies any history of asthma. He is on lisinopril. States it does not feel like his GERD. Symptoms seem to get worse tonight when he was driving home so he wanted to stop by emergency evaluated. He denies any recent surgery or trauma. No asked to remove hormonal use. No prior DVT or PE. No personal or familial history of aortic dissection or aneurysm. Patient states he has noticed some redness in his upper chest and neck. He denies any hives. No new medications. No changes in soaps lotions detergents clothing etc. He has not tried any Benadryl. [facility] Medical History Illness anxiety disorder Generalized anxiety disorder with panic attacks Diarrhea Gilbert disease Rectal pain Perianal pain Gallbladder polyp Chest pain, atypical Abdominal pain Abdominal cramping Nicotine abuse Acute pharyngitis, unspecified SOB (shortness of breath) Hypertension Home Medications ?Medication ?Instructions ?Recorded ?Last Taken ?Type cetirizine 10 mg tablet (Zyrtec) 10 mg PO DAILY PRN allergy symptoms 01/31/23 Unknown History lisinopril 20 mg tablet 30 mg PO DAILY 01/31/23 Unknown History gabapentin 100 mg capsule See Rx Instructions PO .COMPLEX 01/15/24 Unknown Rx #150 caps venlafaxine 150 mg 150 mg PO DAILY #30 caps 01/15/24 Unknown Rx capsule,extended release 24 hr clonazepam 0.25 mg disintegrating 0.25 mg PO DAILY PRN anxiety #10 02/26/24 Unknown Rx tablet tabs pantoprazole 40 mg tablet,delayed 40 mg PO DAILY 03/08/24 Unknown History release Allergy/AdvReac Type Severity Reaction Status Date / Time No Known Allergies Allergy Verified 01/15/24 07:02 Family History Other Anxiety Hypertension Severe allergy Social History Smoking Status: Current every day smoker tobacco type: cigarettes ROS ROS ED Constitutional Constitutional ED: Denies chills, fever(s) or weight loss Eyes Eyes: Denies change in vision or diplopia ENT ENT ED: Denies ear pain, rhinorrhea or sore throat Cardiovascular Cardiovascular: Denies chest pain, orthopnea, palpitations or racing heartbeat Respiratory/Chest Respiratory/Chest: Reports dyspnea; Denies cough or orthopnea Gastrointestinal Gastrointestinal: Denies abdominal pain, diarrhea, nausea or vomiting Genitourinary Genitourinary ED: Denies dysuria, hematuria or urinary frequency Musculoskeletal Musculoskeletal: Denies arthralgias or myalgias Integumentary Denies abscess or rash Neurologic Neurologic: Denies headache(s) or weakness Psychiatric Psychiatric: Reports anxiety; Denies depression, suicidal ideation or suicidal thoughts Endocrine Endocrinology: Denies polydipsia, polyphagia or polyuria Allergic/Immunologic Allergic/Immunologic ED: Denies mouth swelling, tongue swelling or urticaria EXAM Physical Exam Const Vital Signs: 03/08/24 23:17 03/08/24 23:20 Temperature 97.9 F Temperature Source Oral Pulse Rate 92 Respiratory Rate 20 H Respiratory Effort Normal Non-Labored Respiratory Depth Normal Respiratory Pattern Normal Blood Pressure 167/96 H Blood Pressure Mean 119 Pulse Ox 100 Oxygen Delivery Method Room Air Room Air Positive well nourished and well developed General Appearance ED: well developed HEENT Reports normocephalic, head/scalp atraumatic and moist mucous membranes Eyes PERRL and EOMs intact bilaterally Neck no lymphadenopathy, supple and no JVD Resp normal respiratory effort and clear to auscultation bilaterally Cardio regular rate, regular rhythm and no murmurs GI normal to inspection, nondistended, normoactive bowel sounds and non-tender Palpation: soft Back/Spine no CVA tenderness and normal ROM Extremity normal to inspection General Extremety ED: Negative for edema General Extremity: Negative for edema Neuro oriented x3 and CN's II-XII intact bilaterally Sensorium / Orientation: alert Motor Exam: strength 5/5 throughout Psych mental status grossly normal Psych Narrative: Patient appears quite anxious. He appears very tense. Fidgety. Mood & Affect: anxious; Negative for depressed or tearful Skin no rashes or lesions noted and no wounds MDM MDM MDM Narrative Medical decision making narrative: Differential diagnosis includes but not limited to cardiac dysrhythmia, ACS, pneumothorax pleural effusion bronchospasm pulmonary embolism dissection/aneurysm anxiety disorder allergic reactions EKG is a normal sinus rhythm with incomplete right bundle branch block and a ventricular rate of 96 bpm. Patient is PERC negative. I believe the patient can be discharged home. His exam is rather benign except for some anxiety. Vital signs appear stable. Patient can take Benadryl as needed at home she feels like it may be of benefit for him. History & Record Review Discussion w/independent historian: Patient Radiography Diagnostic Testing: Clinical Impression(s) from Imaging Studies Chest X-Ray 03/08/24 23:26 IMPRESSION: No radiographic evidence of acute cardiopulmonary disease. Electronically Signed: Kelvin Albert MD at 0:32 EDT Reading Location ID and State: [facility] / [place] Tel , Service support , EKG Initial EKG: Attestation: I personally reviewed and interpreted this EKG as follows: Comments: Normal sinus rhythm ventricular rate of 86 bpm. Incomplete right Discharge Plan Triage Chief Complaint: Shortness of Breath ED Provider: Jones Cortez Dx/Rx/DC Orders Clinical Impression: Acute dyspnea, Allergies Instructions: ED Dyspnea Prescriptions: No Action lisinopril 20 mg tablet 30 mg PO DAILY cetirizine [Zyrtec] 10 mg tablet 10 mg PO DAILY PRN (Reason: allergy symptoms) gabapentin 100 mg capsule See Rx Instructions PO .COMPLEX Qty: 150 1RF Rx Instructions: Take 100 mg qAM, 100 mg qPM and 300 mg qHS venlafaxine 150 mg capsule,extended release 24hr 150 mg PO DAILY Qty: 30 2RF pantoprazole 40 mg tablet,delayed release (DR/EC) 40 mg PO DAILY clonazepam 0.25 mg tablet,disintegrating 0.25 mg PO DAILY PRN (Reason: anxiety) Qty: 10 0RF Primary Care Provider: Lexus Peña Referrals: Lexus Peña MD [Primary Care Provider] - 3-5 Days if not improving Print Language: Faroese Disposition Disposition: Home, Self Care
[2024-03-09] MEDS: Lidocaine 2% Viscous15 ML UDC 15 ML PO (00:21)
[2024-03-09] MEDS: Mag Hydrox/Al Hydrox/Simeth 30 ML UDC PO (00:21)
[2024-03-09 00:38] VITALS: BP 119/81; PULSE 75; RESP 16; TEMP 36.5; O2SAT 97
== END 2024-03-09 00:38 | disposition home or self-care (01) ==
PROVIDERS: Emergency Provider Emergency Medicine; PCP Family Medicine; Visit Provider Emergency Medicine
DX: R06.09 Other forms of dyspnea (principal); F41.9 Anxiety disorder, unspecified; F17.210 Nicotine dependence, cigarettes, uncomplicated; I10 Essential (primary) hypertension
CPT/HCPCS: 71046; 93005; 99283

== ENCOUNTER 2024-05-24 22:56 | Emergency (ER) | payer SELFPAY ==
[2024-05-24 22:56] VITALS: BP 135/98; PULSE 81; RESP 18; TEMP 35.9; O2SAT 98; BMI 25.8
--- NOTE | 2024-05-24 23:29 | EX.ED.GENINJ ---
HPI History of Present Illness Chief Complaint: Other, Pain/Inj PFSH PFSH Medical History Illness anxiety disorder Generalized anxiety disorder with panic attacks Diarrhea Gilbert disease Rectal pain Perianal pain Gallbladder polyp Chest pain, atypical Abdominal pain Abdominal cramping Nicotine abuse Acute pharyngitis, unspecified SOB (shortness of breath) Hypertension Home Medications ?Medication ?Instructions ?Recorded ?Last Taken ?Type cetirizine 10 mg tablet (Zyrtec) 10 mg PO DAILY PRN allergy symptoms 01/31/23 Unknown History lisinopril 20 mg tablet 30 mg PO DAILY 01/31/23 Unknown History gabapentin 100 mg capsule See Rx Instructions PO .COMPLEX 01/15/24 Unknown Rx #150 caps pantoprazole 40 mg tablet,delayed 40 mg PO DAILY 03/08/24 Unknown History release propranolol 10 mg tablet 10 mg PO TID PRN anxiety #90 tabs 04/15/24 Unknown Rx divalproex 250 mg tablet,delayed 250 mg PO .COMPLEX #60 tabs 05/13/24 Unknown Rx release flurbiprofen 100 mg tablet 100 mg PO TID PRN pain #90 tabs 05/13/24 Unknown Rx ondansetron HCl 4 mg tablet 4 mg PO TID PRN nausea and 05/13/24 Unknown Rx vomiting #90 tabs sumatriptan succinate 50 mg tablet 50 mg PO .COMPLEX #9 tabs 05/13/24 Unknown Rx venlafaxine 75 mg capsule,extended 75 mg PO DAILY #30 caps 05/13/24 Unknown Rx release 24 hr clonazepam 0.25 mg disintegrating 0.25 mg PO DAILY PRN anxiety #30 05/14/24 Unknown Rx tablet tabs Allergy/AdvReac Type Severity Reaction Status Date / Time No Known Allergies Allergy Verified 05/24/24 22:59 Family History Other Anxiety Hypertension Severe allergy Social History Smoking Status: Current every day smoker tobacco type: cigarettes EXAM Physical Exam Const Vital Signs: 05/24/24 22:56 Temperature 96.6 F L Temperature Source Temporal Pulse Rate 81 Respiratory Rate 18 Blood Pressure 135/98 H Blood Pressure Mean 110 Pulse Ox 98 Oxygen Delivery Method Room Air MDM MDM MDM Narrative Medical decision making narrative: HISTORY OF PRESENT ILLNESS: 29-year-old male presents with concern for globus sensation. Close his somatic symptom disorder. Notes that began 4 hours ago. Denies any allergies to food or medication. Denies chest pain, shortness of breath, vomiting, abdominal pain, wheezing, exposure to new foods. REVIEW OF SYSTEMS: Pertinent positives: Throat tightness Pertinent negatives: As per HPI PHYSICAL EXAM: Nursing triage notes reviewed, Vital signs reviewed Constitutional: please see mdm HENT: MMM, no stridor, no drooling, no trismus, no posterior oropharyngeal swelling, uvula midline, no tonsillar edema, no submandibular edema Eyes: Pupils equal round and reactive to light, Extraocular muscles intact Neck: No stridor, no JVD, full neck ROM Lungs: Clear to auscultation, No wheezing or rales. No increased work of breathing, no conversational dyspnea, no accessory muscle use, no nasal flaring. No respiratory distress noted Heart: Regular rate and rhythm, No murmurs, No rubs and No gallops, 2+ distal pulses (radial, femoral, posterior tibial) in all extremities Abdomen: Soft, there is no tenderness, rigidity, rebound or guarding, no obvious peritoneal signs, no palpable pulsatile abdominal masses, no auscultated abdominal bruit : No CVAT Extremities: No edema Neuro: No focal neurological deficits, cranial nerves II through XII intact, 5/5 strength in all extremities. Intact sensation to light touch in all extremities, 2+ reflexes bilateral patella tendons. Normal gait. No ataxia. Skin: No rash or lesions noted MEDICAL DECISION MAKING: Chief Complaint: Globus sensation External records reviewed: Imaging reviewed: X-ray of cervical spine from December 2023 shows no acute Factors affecting care: Occipital neuralgia, generalized anxiety disorder, GERD Social determinants of health: History mental health disorder [facility] Narrative: The patient was hemodynamically stable, afebrile and nontoxic-appearing. Exam did not display any evidence of airway compromise, stridor, drooling, trismus. No signs of RPA, LOCOMOTIVE FIRER/FIREMAN, Santana angina, Lemierre's syndrome. No signs of allergic reaction or anaphylaxis no clear precipitating cause of patient's symptoms could be identified. Given his stable vitals, unremarkable exam and well appearance does not require any further treatment, intubation, hospitalization for further monitoring. Is appropriate for discharge home. The patient and/or family, caregivers express understanding. The patient and/or family, caregivers agrees with the plan. Shared decision making: I will have a discussion with the patient and or visitors regarding risk/benefits of further testing or admission. They will be made aware of of the risk/benefits inherent in this decision they will be given the opportunity to voice understanding. Total critical care time today provided was at least 0 minutes. This excludes separately billable procedures. Critical care time (if documented) is secondary to the patient having high probability of clinically significant/life threatening deterioration in the patient's condition which required my urgent intervention. Impression: 1. Somatic symptom disorder 2. Globus sensation 3. History of anxiety Dispo: Discharge home This note was generated with [employer] dictation software. It may contain incorrect words, spelling, and punctuation that were not noted in review of the chart prior to signing. Discharge Plan Triage Chief Complaint: Other, Pain/Inj Other Complaint: Edema ED Provider: Glenn Sharif Dx/Rx/DC Orders Prescriptions: No Action lisinopril 20 mg tablet 30 mg PO DAILY cetirizine [Zyrtec] 10 mg tablet 10 mg PO DAILY PRN (Reason: allergy symptoms) gabapentin 100 mg capsule See Rx Instructions PO .COMPLEX Qty: 150 1RF Rx Instructions: Take 100 mg qAM, 100 mg qPM and 300 mg qHS propranolol 10 mg tablet 10 mg PO TID PRN (Reason: anxiety) Qty: 90 1RF sumatriptan succinate 50 mg tablet 50 mg PO .COMPLEX Qty: 9 5RF Rx Instructions: Take 1 tablet orally every two hours as needed for headache up to two tablets per day divalproex 250 mg tablet,delayed release (DR/EC) 250 mg PO .COMPLEX Qty: 60 5RF Rx Instructions: Take 1 tablet orally daily for 1 week then 1 tablet twice daily thereafter. flurbiprofen 100 mg tablet 100 mg PO TID PRN (Reason: pain) Qty: 90 4RF ondansetron HCl 4 mg tablet 4 mg PO TID PRN (Reason: nausea and vomiting) Qty: 90 5RF pantoprazole 40 mg tablet,delayed release (DR/EC) 40 mg PO DAILY venlafaxine 75 mg capsule,extended release 24hr 75 mg PO DAILY Qty: 30 2RF clonazepam 0.25 mg tablet,disintegrating 0.25 mg PO DAILY PRN (Reason: anxiety) Qty: 30 1RF Primary Care Provider: Lexus Peña Referrals: Lexus Peña MD [Primary Care Provider] - Print Language: Peruvian
[2024-05-25 00:11] VITALS: BP 128/89; PULSE 65; RESP 15; TEMP 37.2; O2SAT 99
== END 2024-05-25 00:13 | disposition home or self-care (01) ==
PROVIDERS: Emergency Provider Emergency Medicine; PCP Family Medicine; Visit Provider Emergency Medicine
DX: F45.1 Undifferentiated somatoform disorder (principal); F41.9 Anxiety disorder, unspecified; F17.210 Nicotine dependence, cigarettes, uncomplicated; I10 Essential (primary) hypertension; K21.9 Gastro-esophageal reflux disease without esophagitis; F45.8 Other somatoform disorders
CPT/HCPCS: 99282

== ENCOUNTER 2024-10-08 16:15 | Emergency (ER) | payer SELFPAY ==
[2024-10-08] VITALS (15 sets, daily range): BP systolic 116–149; BP diastolic 77–98; PULSE 55–79; RESP 9–20; TEMP 36.2–37.1; O2SAT 96–100; BMI 26.2
--- NOTE | 2024-10-08 16:20 | EKG12_ITS ---
Test Reason : CP Blood Pressure : */* mmHG Vent. Rate : 54 BPM Atrial Rate : 54 BPM P-R Int : 120 ms QRS Dur : 100 ms QT Int : 424 ms P-R-T Axes : 50 -14 -1 degrees QTcB Int : 402 ms Sinus bradycardia with sinus arrhythmia Incomplete right bundle branch block Borderline ECG Confirmed by SONIA KEARNS, OVIDIO ([id number]), production editor ABBIE CARRERA ([id number]) on 10/10/2024 12:59:35 PM Referred By: Glenn Sharif Confirmed By: OVIDIO SCOTT MD
--- NOTE | 2024-10-08 16:36 | RAD_ITS ---
EXAM: XR Chest, 1 View CLINICAL INDICATION: TECHNIQUE: Frontal view of the chest. COMPARISON: No relevant prior studies available. FINDINGS: LUNGS AND PLEURAL SPACES: Unremarkable. No consolidation. No pneumothorax. HEART: Unremarkable. No cardiomegaly. MEDIASTINUM: Unremarkable. Normal mediastinal contour. BONES/JOINTS: Unremarkable. No acute fracture. RAD/Chest 1 View (Portable) IMPRESSION: No acute cardiopulmonary process. Reading [facility]
[2024-10-08 16:45] LABS: Absolute Lymphocyte Count 1.76 X10^3/uL (0.83-4.51); Absolute Neutrophil Count 4.2 X10^3/uL (2.0-7.7); Basophil# 0.03 X10^3/uL; Basophil% 0.5 % (0-1); Eosinophil# 0.05 X10^3/uL; Eosinophils% 0.8 % (0-5); Hemoglobin 16.2 g/dL (13.0-16.5); Lymphocyte # 1.76 X10^3/ul (0.83-4.51); Lymphocyte % 27.1 % (19-41); Mean Corp Hgb Conc 35.2 g/dL (32-36); Mean Corpuscular Hgb 30.2 pg (27.0-32.0); Mean Corpuscular Volume 85.7 fL (80-94); Mean Platelet Vol. 9.7 fl (6.2-12.0); Monocyte# 0.46 X10^3/uL; Monocyte% 7.1 % (0-10); NRBC Flagged by Analyzer 0 % (0-5); Neutrophil # 4.18 X10^3/uL (2.7-7.7); Neutrophil % 64.3 % (47-70); Platelet Count 238 K/mm3 (150-450); RBC Distribution Width CV 12.7 % (11.6-14.6); RBC Distribution Width SD 38.6 fl (35.1-43.9); Red Blood Count 5.37 M/mm3 (4.6-6.2); White Blood Count 6.5 K/mm3 (4.4-11.0)
[2024-10-08 17:06] LABS: Anion Gap 5 (5-15); BUN 9 mg/dL (7-18); BUN/Creat Ratio 7.7 RATIO (10-20); Calcium,Total 9.3 mg/dL (8.5-10.1); Chloride 103 mmol/L (98-107); Creatinine, Serum 1.17 mg/dL (0.70-1.30); EST Glomerular Filtration Rate 78 mL/min (>60); Est Glom Filt Rate - Afr Amer 94 mL/min (>60); Estimated Creatinine Clearance 108.31 ml/min; Glucose 93 mg/dL (74-106); Potassium 4.1 mmol/L (3.5-5.1); Sodium Level 137 mmol/L (136-145); Troponin-I HS (w/2H Reflex) 8 pg/mL (3.0-78.0)
--- NOTE | 2024-10-08 17:57 | ED.VIS.CHEST ---
HPI History of Present Illness Chief Complaint: Chest Pain [facility] Medical History Illness anxiety disorder Generalized anxiety disorder with panic attacks Diarrhea Gilbert disease Rectal pain Perianal pain Gallbladder polyp Chest pain, atypical Abdominal pain Abdominal cramping Nicotine abuse Acute pharyngitis, unspecified SOB (shortness of breath) Hypertension Home Medications ?Medication ?Instructions ?Recorded ?Last Taken ?Type cetirizine 10 mg tablet (Zyrtec) 10 mg PO DAILY PRN allergy symptoms 01/31/23 Unknown History lisinopril 20 mg tablet 30 mg PO DAILY 01/31/23 Unknown History gabapentin 100 mg capsule See Rx Instructions PO .COMPLEX 01/15/24 Unknown Rx #150 caps pantoprazole 40 mg tablet,delayed 40 mg PO DAILY 03/08/24 Unknown History release propranolol 10 mg tablet 10 mg PO TID PRN anxiety #90 tabs 04/15/24 Unknown Rx divalproex 250 mg tablet,delayed 250 mg PO .COMPLEX #60 tabs 05/13/24 Unknown Rx release flurbiprofen 100 mg tablet 100 mg PO TID PRN pain #90 tabs 05/13/24 Unknown Rx ondansetron HCl 4 mg tablet 4 mg PO TID PRN nausea and 05/13/24 Unknown Rx vomiting #90 tabs sumatriptan succinate 50 mg tablet 50 mg PO .COMPLEX #9 tabs 05/13/24 Unknown Rx venlafaxine 37.5 mg 37.5 mg PO DAILY #30 caps 06/05/24 Unknown Rx capsule,extended release 24 hr fluoxetine 10 mg capsule 10 mg PO QDAY #30 caps 09/12/24 Unknown Rx hydroxyzine pamoate 25 mg capsule 25 mg PO TID PRN anxiety #90 caps 09/12/24 Unknown Rx clonazepam 0.5 mg disintegrating 0.5 mg PO TID PRN anxiety #90 tabs 09/15/24 Unknown Rx tablet Allergy/AdvReac Type Severity Reaction Status Date / Time No Known Allergies Allergy Verified 10/08/24 16:16 Family History Other Anxiety Hypertension Severe allergy Social History Smoking Status: Current every day smoker tobacco type: cigarettes EXAM Physical Exam Const Vital Signs: 10/08/24 16:16 10/08/24 16:20 10/08/24 17:15 Temperature 97.2 F L Temperature Source Temporal Pulse Rate 73 55 L Respiratory Rate 15 18 Respiratory Effort Blood Pressure 140/90 H 126/81 H Blood Pressure Mean 106 96 Pulse Ox 100 98 Oxygen Delivery Method Room Air Room Air 10/08/24 17:26 10/08/24 17:30 10/08/24 17:36 Temperature Temperature Source Pulse Rate 55 L 61 Respiratory Rate 10 L 9 L Respiratory Effort Normal Non-Labored Blood Pressure 138/90 H Blood Pressure Mean 104 Pulse Ox 98 98 Oxygen Delivery Method 10/08/24 17:45 10/08/24 18:00 10/08/24 18:15 Temperature Temperature Source Pulse Rate 68 Respiratory Rate 12 Respiratory Effort Blood Pressure 134/86 H 116/77 137/85 H Blood Pressure Mean 100 89 103 Pulse Ox 97 Oxygen Delivery Method 10/08/24 18:30 10/08/24 18:45 10/08/24 19:00 Temperature Temperature Source Pulse Rate 63 76 79 Respiratory Rate 20 H 14 9 L Respiratory Effort Blood Pressure 145/93 H 141/88 H 132/93 H Blood Pressure Mean 106 105 106 Pulse Ox 98 97 Oxygen Delivery Method 10/08/24 19:15 10/08/24 19:30 10/08/24 19:45 Temperature Temperature Source Pulse Rate 57 L 59 L Respiratory Rate 13 11 L Respiratory Effort Blood Pressure 149/98 H 149/95 H 141/89 H Blood Pressure Mean 113 111 104 Pulse Ox 97 96 Oxygen Delivery Method 10/08/24 19:55 10/08/24 20:00 Temperature 98.7 F Temperature Source Pulse Rate 62 Respiratory Rate 18 Respiratory Effort Blood Pressure 141/89 H 125/80 H Blood Pressure Mean 106 92 Pulse Ox 98 Oxygen Delivery Method MDM MDM MDM Narrative Medical decision making narrative: HISTORY OF PRESENT ILLNESS: 29-year-old male presents with sternal chest pain is started today. States he also has pain in the back of his head that he thinks a tension headache from anxiety. He also complains of shortness of breath child breathing. He also notes nausea. He further states The patient denies recent surgery in the last 4 weeks or immobilization in the last 3 days, denies previous diagnosis of DVT or PE, hemoptysis, unilateral leg swelling or malignancy with treatment the last 6 months or palliative. No estrogen use noted. Patient denies sudden onset of pain, no tearing sensation, no migratory symptoms, no new numbness, weakness or loss of sensation. Patient denies family history or personal history of Connective tissue disorders (Marfan's Syndrome, Kena Danlos etc). Patient denies sudden onset or thunderclap headache, denies maximal intensity within 1 minute, vomiting, neck pain, stiffness, changes in vision, fever, history malignancy, syncope, or seizures associated with headache. REVIEW OF SYSTEMS: Pertinent positives: Chest pain Pertinent negatives: Syncope, leg swelling PHYSICAL EXAM: Nursing triage notes reviewed, Vital signs reviewed Constitutional: please see mdm HENT: MMM Eyes: Pupils equal round and reactive to light, Extraocular muscles intact Neck: No stridor, no JVD, full neck ROM Lungs: Clear to auscultation, No wheezing or rales. No increased work of breathing, no conversational dyspnea, no accessory muscle use, no nasal flaring. No respiratory distress noted Heart: Regular rate and rhythm, No murmurs, No rubs and No gallops, 2+ distal pulses (radial, femoral, posterior tibial) in all extremities Abdomen: Soft, there is no tenderness, rigidity, rebound or guarding, no obvious peritoneal signs, no palpable pulsatile abdominal masses, no auscultated abdominal bruit : No CVAT Extremities: No edema Neuro: Alert and oriented x3, neuro exam at baseline, cranial nerves II through XII are intact. No pain with extraocular muscle movement. There is negative test of skew. 5 of 5 strength in upper and lower extremities in flexion extension. Intact sensation to light touch in upper and lower extremity dermatomes. No truncal or extremity ataxia. No dysdiadochokinesia. Normal gait. 2+ reflexes in upper and lower extremities. No meningeal signs. Negative Babinski. NIH of 0. Skin: No rash or lesions noted MEDICAL DECISION MAKING: Chief Complaint: Chest pain External records reviewed: Reviewed prior imaging studies. Reviewed prior cardiovascular testing Factors affecting care: Anxiety, hypertension, Social determinants of health: none History obtained from others: none Consults: none [facility] Narrative: Patient was initially hemodynamically stable, afebrile and nontoxic-appearing. Exam without focal cardiopulmonary abnormalities. I considered the following differential diagnosis: ACS, arrhythmia, anemia, electrolyte disturbance, PE, aortic dissection Triage labs images were placed secondary to poor departmental conditions including high volume and high acuity. Labs that were placed in triage included CBC, troponin, BMP, chest x-ray, EKG, monitoring specialist and IV placement. After I evaluated the patient I gave him 5 mg of IV Reglan for headache and nausea control. ALL IMAGES (IF OBTAINED) HAVE BEEN PERSONALLY REVIEWED AND INTERPRETED BY MYSELF. EKG with sinus bradycardia rate 54, left ax deviation, normal intervals, QTc 402, CA interval 120, no STEMI, no signs of ARVD, Brugada, pericarditis or WPW. No sign of right heart strain to suggest VTE High-sensitivity troponin is negative, no evidence of myocardial ischemia CBC without leukocytosis, severe anemia, no thrombocytopenia. BMP without evidence of significant electrolyte abnormalities, no anion gap, no acute kidney injury. CBC without leukocytosis, severe anemia, no thrombocytopenia. Delta troponin negative as well. Upon reevaluation the patient remained hemodynamically stable. The synthesis of the patient's history, physical exam, labs images suggest no acute life or limb tugging etiology. The patient and/or family, caregivers express understanding. The patient and/or family, caregivers agrees with the plan. Shared decision making: I will have a discussion with the patient and or visitors regarding risk/benefits of further testing or admission. They will be made aware of of the risk/benefits inherent in this decision they will be given the opportunity to voice understanding. Total critical care time today provided was at least 0 minutes. This excludes separately billable procedures. Critical care time (if documented) is secondary to the patient having high probability of clinically significant/life threatening deterioration in the patient's condition which required my urgent intervention. Impression: 1. Chest pain 2. History of anxiety Dispo: Discharge This note was generated with [employer] dictation software. It may contain incorrect words, spelling, and punctuation that were not noted in review of the chart prior to signing. Lab Data Labs: Laboratory Results - last 24 hr 10/08/24 10/08/24 16:29 18:39 WBC 6.5 RBC 5.37 Hgb 16.2 Hct 46.0 MCV 85.7 MCH 30.2 MCHC 35.2 RDW Std Deviation 38.6 RDW Coeff of [place] 12.7 Plt Count 238 MPV 9.7 Immature Gran % (Auto) 0.200 Neut % (Auto) 64.3 Lymph % (Auto) 27.1 [place] % (Auto) 7.1 Eos % (Auto) 0.8 Baso % (Auto) 0.5 Absolute Neuts (auto) 4.2 Absolute Lymphs (auto) 1.76 Nucleated RBC % 0 Sodium 137 Potassium 4.1 Chloride 103 Carbon Dioxide 29.0 Anion Gap 5 BUN 9 Creatinine 1.17 Estim Creat Clear Calc 108.31 Est GFR (MDRD) Af Amer 94 Est GFR (MDRD) Non-Af 78 BUN/Creatinine Ratio 7.7 L Glucose 93 Calcium 9.3 Troponin I High Sens 8 5 Radiography Diagnostic Testing: Clinical Impression(s) from Imaging Studies Chest X-Ray 10/08/24 16:36 IMPRESSION: No acute cardiopulmonary process. Reading Location: [facility] Discharge Plan Triage Chief Complaint: Chest Pain ED Provider: Glenn Sharif Dx/Rx/DC Orders Prescriptions: No Action lisinopril 20 mg tablet 30 mg PO DAILY cetirizine [Zyrtec] 10 mg tablet 10 mg PO DAILY PRN (Reason: allergy symptoms) gabapentin 100 mg capsule See Rx Instructions PO .COMPLEX Qty: 150 1RF Rx Instructions: Take 100 mg qAM, 100 mg qPM and 300 mg qHS propranolol 10 mg tablet 10 mg PO TID PRN (Reason: anxiety) Qty: 90 1RF sumatriptan succinate 50 mg tablet 50 mg PO .COMPLEX Qty: 9 5RF Rx Instructions: Take 1 tablet orally every two hours as needed for headache up to two tablets per day divalproex 250 mg tablet,delayed release (DR/EC) 250 mg PO .COMPLEX Qty: 60 5RF Rx Instructions: Take 1 tablet orally daily for 1 week then 1 tablet twice daily thereafter. flurbiprofen 100 mg tablet 100 mg PO TID PRN (Reason: pain) Qty: 90 4RF ondansetron HCl 4 mg tablet 4 mg PO TID PRN (Reason: nausea and vomiting) Qty: 90 5RF pantoprazole 40 mg tablet,delayed release (DR/EC) 40 mg PO DAILY venlafaxine 37.5 mg capsule,extended release 24hr 37.5 mg PO DAILY Qty: 30 0RF fluoxetine 10 mg capsule 10 mg PO QDAY Qty: 30 0RF hydroxyzine pamoate 25 mg capsule 25 mg PO TID PRN (Reason: anxiety) Qty: 90 0RF clonazepam 0.5 mg tablet,disintegrating 0.5 mg PO TID PRN (Reason: anxiety) Qty: 90 1RF Primary Care Provider: [facility] Doctor,Out of Referrals: [facility] Doctor,Out of [Primary Care Provider] - Print Language: Yakut
[2024-10-08 18:35] LABS: Reflex Troponin-HS? (from REC) Y
[2024-10-08] MEDS: Metoclopramide 10 MG/2 ML Vial 5 MG IV (18:40)
[2024-10-08 19:34] LABS: Troponin-I HS 5 pg/mL (3.0-78.0)
--- NOTE | 2024-10-08 21:04 | CM.ED ---
Social Work SW introduced self to patient and explained role with [facility]. Patient stated that he was at the hospital because he felt like he was unable to breath. Patient discussed history of panic attacks, increased anxiety, and inability to work at this time. Patient states that he has been living with his mother and has had a decreased ability to leave his home and be in social situations. Patient states that his mother is very supportive. Patient states that he sees Dr. Jessica for psychiatry and has been taking his medication as ordered. Patient states he does not have any insurance. Information provided for Applying for Medicaid, [facility], breathing techniques and 5 senses. No further needs identified at this time. Mary Dean, SPECIAL EDUCATOR, BACK PANEL PADDER
== END 2024-10-08 20:52 | disposition home or self-care (01) ==
PROVIDERS: Emergency Provider Emergency Medicine; Referring Provider Emergency Medicine; Visit Provider Emergency Medicine
DX: R07.9 Chest pain, unspecified (principal); R00.1 Bradycardia, unspecified; I10 Essential (primary) hypertension; F41.9 Anxiety disorder, unspecified; F17.210 Nicotine dependence, cigarettes, uncomplicated
CPT/HCPCS: 71045; 80048; 84484; 85025; 93005; 96374; 99284

== ENCOUNTER → 2024-12-24 | Outpatient (CLI) | payer MEDICAID, SELFPAY ==
--- NOTE | 2024-12-24 12:52 | MRI_ITS ---
PROCEDURE: BRAIN W/WO CONTRAST 12/24/2024 REASON FOR EXAM: MIGRAINE HEADACHES; OCCIPITAL NEURALGIA TECHNIQUE: Routine brain MRI without and with intravenous contrast. Multiplanar and multisequence images were obtained. CONTRAST: Agnieszka scan 20 mL COMPARISON: CT 05/25/2023 FINDINGS: Brain: Normal signal intensities. Diffusion: No restricted diffusion to suggest acute or subacute infarction. Ventricles: Normal. Major Intracranial Vessels: Normal flow voids. Sinuses: Clear. Mastoids: Clear. MRI/Brain W/WO Contrast IMPRESSION: NORMAL BRAIN MRI WITHOUT AND WITH CONTRAST. Reading Location: [id number]
== END | disposition home or self-care (01) ==
LOC: MRI 12:49
PROVIDERS: PCP Family Medicine; Referring Provider Psychiatry & Neurology Neurology; Visit Provider Psychiatry & Neurology Neurology
DX: G43.009 Migraine without aura, not intractable, without status migrainosus (principal); M54.81 Occipital neuralgia; Z82.49 Family history of ischemic heart disease and other diseases of the circulatory system
CPT/HCPCS: 70553; A9575

== ENCOUNTER 2025-01-06 10:36 | Outpatient (CLI) | payer MEDICAID, SELFPAY ==
--- NOTE | 2025-01-06 11:09 | STE_ITS ---
Reason For Study Reason For Study: CHEST PAIN Stress Results Protocol: Jonathon Protocol Maximum Predicted HR: 191 bpm Target HR: 162 bpm % Maximum Predicted HR: 101 % DurationHeart Rate Stage (mm:ss) (bpm) BP Comment BASELINE 64 130/82 STAGE 1 3:00 105 150/90 STAGE 2 3:00 114 164/92 STAGE 3 3:00 127 174/92 STAGE 4 3:00 181 210/100SOB NOTED STATE 5 1:00 193 / SOB NO CHEST PAIN RECOVERY 96 136/78 Stress Duration: 13:00 mm:ss Maximum Stress HR: 193 bpm Baseline Echocardiogram Findings Normal resting LV function. Estimated LVEF 60%. Stress Echo Wall motion Data Resting WM Intermediate WM Stress WM Resting Wall Motion Wall Motion Stress No regional wall motion abnormalities All LV wall segments hyperdynamic noted. postexercise. No regional wall motion abnormality. EKG Data Resting ECG normal sinus rhythm. Stress ECG with sinus tachycardia. No ischemic changes. No arrhythmias noted. ECHO/Stress Test Echo w/o Contrast Interpretation Summary Excellent exercise capacity. Stress ECG with sinus tachycardia. No ischemic changes. No arrhythmias noted. N o chest pain reported. Hypertensive blood pressure response to exercise. All LV wall segments hyperdynamic postexercise. Negative exercise stress echo. Ordering Physician: Aleja Dobbs Referring Physician: Aleja Dobbs Performed By: Mario Dorado RCS
--- NOTE | 2025-01-06 11:37 | ECHOD_ITS ---
Reason For Study Reason For Study: Chest Pain Procedure This was a 2D Doppler, Color Flow transthoracic echocardiogram. Echo performed post stress echo. Exam performed in department. Left Ventricle Normal size and thickness. The LV systolic function is normal. EF is 65 %. Normal diastololic function. Right Ventricle Normal right ventricle. Atria The left and right atria are normal. Mitral Valve Normal mitral valve. Tricuspid Valve Trivial tricuspid valve insufficiency. Normal pulmonary artery pressure. Aortic Valve Trisinus/trileaflet aortic valve. Trivial to mild aortic valve insufficiency. Pulmonic Valve The pulmonic valve is not well visualized. Great Vessels Normal sized aortic root. Pericardium/Pleural No pericardial effusion. MMode/2D Measurements & Calculations LVIDd: 4.8 cm IVSd: 0.98 cm Ao root diam: 3.0 cm LVIDs: 3.0 cm LVPWd: 0.95 cm RVDd: 4.1 cm FS: 37.7 % LAV(MOD-bp): 20.4 ml LVAd ap4: 28.2 cm2 SV(MOD-sp4): 45.9 ml LAV(MOD-bp) Indexed: 9.5 ml/m2 LVLd ap4: 8.5 cm SI(MOD-sp4): 21.3 ml/m2 LAV(MOD-sp2): 23.9 ml EDV(MOD-sp4): 78.7 ml LAV(MOD-sp4): 17.1 ml EDV(sp4-el): 79.2 ml LVAs ap4: 16.4 cm2 LVLs ap4: 7.2 cm ESV(MOD-sp4): 32.8 ml ESV(sp4-el): 31.5 ml EF(MOD-sp4): 58.3 % EF(sp4-el): 60.2 % SV(sp4-el): 47.7 ml LA A4 area: 9.3 cm2 LA dimension(2D): 2.9 cm RA A4 area: 14.0 cm2 TAPSE: 1.9 cm Time Measurements MV dec time: 0.13 sec Doppler Measurements & Calculations MV E max newton: 72.8 cm/sec Lat Peak E' Newton: 15.6 cm/sec Med Peak E' Newton: 11.2 cm/sec MV A max newton: 78.6 cm/sec E/E' lat: 4.7 E/E' med: 6.5 MV E/A: 0.93 MV V2 max: 94.9 cm/sec Ao V2 max: 125.7 cm/sec MV max P.6 mmHg MV dec slope: 562.2 cm/sec2 Ao max P.3 mmHg MV V2 mean: 67.9 cm/sec Ao V2 mean: 85.1 cm/sec MV mean P.0 mmHg Ao mean P.4 mmHg MV V2 VTI: 16.3 cm Ao V2 VTI: 21.0 cm AV (velocity ratio): 0.97 LV V1 max: 118.9 cm/sec PA V2 max: 119.9 cm/sec TR max newton: 199.5 cm/sec LV V1 max P.7 mmHg TR max P.9 mmHg LV V1 mean P.1 mmHg LV V1 mean: 82.2 cm/sec LV V1 VTI: 20.4 cm ECHO/Echo Complete Interpretation Summary The LV systolic function is normal. EF is 65 %. Trivial to mild aortic valve insufficiency. Ordering Physician: Aleja Dobbs Referring Physician: Aleja Dobbs Performed By: Mario Dorado [facility]
== END 2025-01-06 23:59 | disposition home or self-care (01) ==
PROVIDERS: PCP Family Medicine; Referring Provider Internal Medicine Cardiovascular Disease; Visit Provider Internal Medicine Cardiovascular Disease
DX: R07.89 Other chest pain (principal)
CPT/HCPCS: 93017; 93306; 93350

== ENCOUNTER 2025-04-30 12:48 | Emergency (ER) | payer MEDICAID, SELFPAY ==
[2025-04-30 12:49] VITALS: BP 140/88; PULSE 88; RESP 14; TEMP 36.8; O2SAT 98; BMI 24.7
[2025-04-30] MEDS: 0.9% Normal Saline (1000mL) 1,000 ML 999 ML IV (13:37)
[2025-04-30 15:01] VITALS: BP 139/88; PULSE 55; RESP 16; O2SAT 97
--- NOTE | 2025-04-30 15:15 | EDS_ITS ---
HPI History of Present Illness Chief Complaint: Headache Narrative Narrative: Patient is a 30-year-old male with past medical history anxiety, gilbert disease, s hypertension who presented to the emergency department the chief complaint headache. He states that he started develop a headache yesterday that had slowly worsened prompting him to come here for further evaluation management. Patient denies any head trauma or injury. Patient states that he did not taken thing for his headache. [facility] Medical History Illness anxiety disorder Generalized anxiety disorder with panic attacks Diarrhea Gilbert disease Rectal pain Perianal pain Gallbladder polyp Chest pain, atypical Abdominal pain Abdominal cramping Nicotine abuse Acute pharyngitis, unspecified SOB (shortness of breath) Hypertension Home Medications ?Medication ?Instructions ?Recorded ?Last Taken ?Type cetirizine 10 mg tablet (Zyrtec) 10 mg PO DAILY PRN al lergy symptoms 01/31/23 Unknown History ondansetron HCl 4 mg tablet 4 mg PO TID PRN nausea and 05/13/24 Unknown Rx vomiting #90 tabs trazodone 50 mg tablet 50 mg PO QHS PRN sleep #30 t abs 10/20/24 Unknown Rx sucralfate 1 gram tablet 1 g PO .QID 12/01/24 Unknown History clonazepam 0.5 mg disintegrating 0.5 mg PO TID PRN anx iety #90 tabs 12/05/24 Un known Rx tablet hydroxyzine pamoate 25 mg capsule 25 mg PO TID PRN anx iety #90 caps 02/05/25 Unknown Rx mirtazapine 15 mg tablet 15 mg PO QHS #30 tabs Unknown Rx propranolol 10 mg tablet 10 mg PO TID 04/30/25 Unknow n History valsartan 160 mg tablet 160 mg PO QDAY #30 tabs 12/19 Unknown Rx Allergy/AdvReac Type Severity Reaction Status Date / Time No Known Allergies Allergy Verified 04/30/25 12:49 Family History Other Anxiety Hypertension Severe allergy Surgical History Hx of tonsillectomy Social History current occupational status: employed current occupation: work/study [employer] Smoking Status: Current every day smoker tobacco type: cigarettes alcohol intake: current alcohol intake frequency: holidays/special occasions only ROS ROS ED ROS Narrative Constitutional: Claims a headache as noted above denies lightheadedness dizziness, fevers or chills Eyes: Denies change in vision double vision blurry vision Cardiovascular: Denies chest pain or palpitations Respiratory: Denies shortness of breath Abdomen: Denies nausea vomit diarrhea : Denies urinary symptoms Neurological: Denies any numbness, weakness, tingling Musculoskeletal: Denies back pain Skin: Denies any rashes or lesions EXAM Physical Exam Narrative Exam Narrative: General: Patient lying in bed rest comfortably did appear to be uncomfortable secondary to his headache Head: Atraumatic, normocephalic Eyes: PERRL bilaterally, EOMI bilateral, no conjunctival injection noted Neck: Soft, supple, trachea midline, no concern for meningitis Cardiovascular: Patient bradycardic with a regular rhythm Respiratory: Clear to auscultation bilaterally Abdomen: Soft, nondistended, no tenderness palpation Extremities: +5/5 strength noted in the bilateral upper and lower extremities Neurological: Patient follow commands knew that he was at [facility] year is 2024 NIH of 0 GCS 15 Skin: Warm, dry, intact no rashes or lesions no petechia no purpura Const Vital Signs: 04/30/25 12:49 04/30/25 15:01 Temperature 98.3 F Temperature Source Oral Pulse Rate 88 55 L Respiratory Rate 14 16 Blood Pressure 140/88 H 139/88 H Blood Pressure Mean 105 105 Pulse Ox 98 97 Oxygen Delivery Method Room Air Room Air MDM MDM MDM Narrative Medical decision making narrative: Patient is a 30-year-old male who presents to the emergency department chief complaint of headache. On the differential diagnose includes but not limited to migraine headache, tension headache, cluster headache, TMJ dysfunction. Patient was given IV fluids, Tylenol and Zofran. On reevaluation the patient he is feeling better he would like to go home at this point time. Patient will be given Toradol he states that he still does have a slight headache. He is advised to continue to rotate Tylenol and ibuprofen [id number] and follow-up his doctor in the outpatient setting. He is encouraged return with worsening symptoms or any concerns. All question concerns answered was discharged home in stable condition. Discharge Plan Triage Chief Complaint: Headache ED Provider: Tiburcio Foster Dx/Rx/DC Orders Clinical Impression: Headache, Anxiety, GERD (gastroesophageal reflux disease) Prescriptions: No Action cetirizine [Zyrtec] 10 mg tablet 10 mg PO DAILY PRN (Reason: allergy symptoms) ondansetron HCl 4 mg tablet 4 mg PO TID PRN (Reason: nausea and vomiting) Qty: 90 5RF sucralfate 1 gram tablet 1 g PO .QID hydroxyzine pamoate 25 mg capsule 25 mg PO TID PRN (Reason: anxiety) Qty: 90 1RF mirtazapine 15 mg tablet 15 mg PO QHS Qty: 30 1RF propranolol 10 mg tablet 10 mg PO TID trazodone 50 mg tablet 50 mg PO QHS PRN (Reason: sleep) Qty: 30 1RF clonazepam 0.5 mg tablet,disintegrating 0.5 mg PO TID PRN (Reason: anxiety) Qty: 90 1RF valsartan 160 mg tablet 160 mg PO QDAY Qty: 30 11RF Primary Care Provider: Lexus Peña Referrals: Lexus Peña MD [Primary Care Provider] - Activity Restrictions/Additional Instructions: Rotate Tylenol and ibuprofen [id number] when you do this you can take something every 3 hours for pain max dose Tylenol in 24 hours 4000 mg max dose of ibuprofen in 24 hours 3200 mg. Follow-up with your doctor in outpatient setting. Return with worsening symptoms or other concerns. Print Language: [place] Disposition Disposition: Home, Self Care
[2025-04-30] MEDS: Ketorolac 30 MG/ML Syringe IM (15:17)
[2025-04-30 15:22] VITALS: BP 139/88; PULSE 55; RESP 16; TEMP 36.8; O2SAT 97
== END 2025-04-30 15:30 | disposition home or self-care (01) ==
PROVIDERS: Emergency Provider Emergency Medicine; PCP Family Medicine; Visit Provider Emergency Medicine
DX: R51.9 Headache, unspecified (principal); K21.9 Gastro-esophageal reflux disease without esophagitis; F41.9 Anxiety disorder, unspecified; F17.210 Nicotine dependence, cigarettes, uncomplicated
CPT/HCPCS: 36415; 80048; 80061; 84443; 96361; 96372; 96374; 99282; A4216; J2405

== ENCOUNTER → 2025-04-30 | Outpatient (CLI) | payer MEDICAID, SELFPAY ==
[2025-04-30 13:22] LABS: Anion Gap 10 (5-15); BUN 13 mg/dL (4-19); BUN/Creat Ratio 12.4 RATIO (10-20); Calcium,Total 9.6 mg/dL (7.6-11.0); Carbon Dioxide 26.5 mmol/L (21.0-32.0); Chloride 102 mmol/L (98-108); Cholesterol 169 mg/dL (<=200); Glucose 96 mg/dL (70-99); Low Density Lipoprotein Calc. 117 mg/dL; Potassium 4.3 mmol/L (3.3-5.1); Triglycerides 99 mg/dL; Very Low Density Lipoprotein 20 mg/dL (5-40); cholesterol:hdl ratio screen 5.33
== END | disposition home or self-care (01) ==
LOC: LAB 11:36
PROVIDERS: PCP Family Medicine; Referring Provider Internal Medicine Cardiovascular Disease; Visit Provider Internal Medicine Cardiovascular Disease
DX: I10 Essential (primary) hypertension (principal); R53.83 Other fatigue
CPT/HCPCS: 36415; 80048; 80061; 84443

== ENCOUNTER → 2025-05-08 | Outpatient (CLI) | payer MEDICAID, SELFPAY ==
[2025-05-20 11:09] LABS: Metanephrine, Ur 36 ug/L (Undefined); Metanephrines, 24Ur 79 ug/24 hr (58-276); Normetanephrines, 24Ur 220 ug/24 hr (110-553); Normetanephrines, Ur 100 ug/L (Undefined)
== END | disposition home or self-care (01) ==
LOC: LABSPEC 08:28
PROVIDERS: PCP Family Medicine; Referring Provider Student in an Organized Health Care Education/Training Program; Visit Provider Student in an Organized Health Care Education/Training Program
DX: F41.1 Generalized anxiety disorder (principal); F41.0 Panic disorder [episodic paroxysmal anxiety]
CPT/HCPCS: 81050; 83835

== ENCOUNTER → 2025-05-27 | Outpatient (CLI) | payer MEDICAID, SELFPAY ==
--- NOTE | 2025-05-27 11:23 | MRI_ITS ---
PROCEDURE: MRA HEAD ONLY WITHOUT CONTRAST 05/27/2025 REASON FOR EXAM: FAMILY HISTORY OF CEREBRAL ANEURYSM COMPARISON: none TECHNIQUE: Procedure Code: [id number] Modality: MR Procedure: MRA HEAD ONLY WITHOUT CONTRAST Multiplanar multisequential imaging was performed without IV contrast administration. FINDINGS: Patent MRA flow signals of the petrous, cavernous and supraclinoid segments of the internal carotid arteries showing no tight stenotic lesions or aneurysmal dilatation. Patent MRA signal of the anterior and middle cerebral arteries (CHRIS's) (A1 to A4), and (M1 to M4). Patent MRA signal of the vertebral and basilar arteries. No stenotic lesions or aneurysmal dilatation. Patent posterior cerebral arteries (P1 to P5). No stenotic lesions or aneurysmal dilatation. None of the mentioned arteries shows stenotic lesions, occlusion, aneurysmal dilatation or arteriovenous malformation. MRI/MRA Head ONLY without Contrast IMPRESSION: Unremarkable MRA of the intracranial vessels constituting ([place]). Reading [facility]
== END | disposition home or self-care (01) ==
LOC: MRI 10:59
PROVIDERS: PCP Family Medicine; Referring Provider Psychiatry & Neurology Neurology; Visit Provider Psychiatry & Neurology Neurology
DX: Z82.49 Family history of ischemic heart disease and other diseases of the circulatory system (principal)
CPT/HCPCS: 70544

== ENCOUNTER → 2025-06-22 | Outpatient (CLI) | payer MEDICAID, SELFPAY ==
[2025-06-22 15:10] LABS: Vitamin D,25 Hydroxy 45.6 ng/mL (30-100)
== END | disposition home or self-care (01) ==
LOC: LAB 14:03
PROVIDERS: PCP Family Medicine; Referring Provider Nurse Practitioner Psychiatric/Mental Health; Visit Provider Nurse Practitioner Psychiatric/Mental Health
DX: F41.1 Generalized anxiety disorder (principal); F41.0 Panic disorder [episodic paroxysmal anxiety]
CPT/HCPCS: 36415; 82306